=== PATIENT | female | born 1985 | race African-American/Black ===

== ENCOUNTER 2017-06-11 15:23 | Emergency (ER) | payer OTHER ==
[2017-06-11 15:34] VITALS: BP 117/67; PULSE 104; TEMP 98.1; BMI 32.4
--- NOTE | 2017-06-11 16:23 | PDOC ---
History of Present Illness - General Chief Complaint: Blood Sugar Problem Stated Complaint: PCP SENT ADMIN Time Seen by Provider: 06/11/17 16:07 History Source: Patient - History of Present Illness Initial Comments: 06/11/17 16:22 Patient is 31 y.o. @ 10 weeks female with a PMH of IDDM who presents to our ED this afternoon at the behest of her PCP, Dr. Fernando Estevez, following a BS of 400 as well as a positive VRDL last week. Patient has no active medical complaints and expresses disbelief at her Syphilis serology as she notes she is monagamous with one partner for two years. Patient denies any abdominal pain, fevers, chills, shortness of breath or chest pain. Past History - Past Medical History Allergies/Adverse Reactions: Allergies Allergy/AdvReac Type Severity Reaction Status Date / Time No Known Allergies Allergy Verified 06/11/17 15:31 Home Medications: Ambulatory Orders Gabapentin 300 mg PO TID 08/08/16 Hydroxyzine HCl 50 mg PO DAILY PRN 08/08/16 Quetiapine Fumarate [Seroquel] 100 tab PO BID 08/08/16 Sertraline HCl [Zoloft] 100 mg PO DAILY 08/08/16 Trazodone HCl 200 mg PO HS 08/08/16 Insulin (Levemir) [Levemir Vial] 10 units SQ BID@0700,2200 #4 ml 08/10/16 Insulin Glargine,Hum.rec.anlog [Lantus Solostar PEN (NF)] 10 units SQ BID #60 pen 08/10/16 Miscellaneous Medical Supply [Glucometer Device] 1 each TD ASDIR #1 kit Miscellaneous Medical Supply [Glucometer Test Strips #100] 1 each TD ASDIR #1 box 08/10/16 Anemia: Yes Asthma: No Cancer: No Cardiac Disorders: No Diabetes: Yes HTN: No Seizures: No Thyroid Disease: No - Immunization History Immunization Up to Date: Yes - Suicide/Smoking/Psychosocial Hx Smoking History: Current every day smoker Have you smoked in the past 12 months: Yes Number of Cigarettes Smoked Daily: 15 Cigars Per Day: 3 Information on smoking cessation initiated: No 'Breaking Loose' booklet given: 08/08/16 Hx Alcohol Use: No Drug/Substance Use Hx: No Substance Use Type: None Hx Substance Use Treatment: No Review of Systems - Review of Systems Constitutional: No: Chills, Fever HEENTM: No: Recent change in vision, Throat Pain Respiratory: No: Cough, Shortness of Breath Cardiac (ROS): No: Chest Pain, Irregular Heart Rate, Chest Tightness ABD/GI: No: Constipated, Diarrhea, Nausea, Vomiting All Other Systems: Reviewed and Negative *Physical Exam - Vital Signs Last Vital Signs Temp Pulse Resp BP Pulse Ox 98.1 F 104 H 20 117/67 99 06/11/17 15:32 06/11/17 15:32 06/11/17 15:32 06/11/17 15:32 06/11/17 15:32 - Physical Exam General Appearance: Yes: Nourished, Appropriately Dressed HEENT: positive: EOMI, Other (Delayed or no Reactivity in L pupil possibly Argyll Rubalcava pupil; Reactive R pupil) Neck: positive: Trachea midline, Supple Respiratory/Chest: positive: Lungs Clear, Normal Breath Sounds Cardiovascular: positive: Regular Rhythm, Regular Rate, S1, S2 Integumentary: positive: Rash (Macular rash in abdomen, flank and buttocks) Neurologic: positive: medical assistant dermatology II-XII NML intact, Fully Oriented, Alert ED Treatment Course - LABORATORY CBC & Chemistry Diagram: 06/11/17 17:00 06/11/17 17:00 Medical Decision Making - Medical Decision Making 06/11/17 16:58 Patient is a 31 y.o. female who presents at the behest of her PCP Dr. Fernando Estevez following a positive VRDL as well as elevated BS (400's) today. PLAN: 1. CBC, CMP 2. VRDL 3. UA 4. 2.4 units IM penicillin - as syphilis is TORCH infection, clinical decision to treat without FTA ABS confirmatory testing; patient to receive confirmatory testing from PCP 06/11/17 17:22 stenographer secretary cathodic protection technician, Dr. Metcalf, agreed with POC; patient to f/u with ID as well as stenographer secretary referral. 06/11/17 19:13 Patient signed out to Dr. Alan De La Fuente (Resident) and Dr. Patience Jenkins ( Attending) - will plan to recheck BS and discharge home with strong counseling on follow-up instructions. *DC/Admit/Observation/Transfer Diagnosis at time of Disposition: Hyperglycemia - Discharge Dispostion Disposition: HOME Condition at time of disposition: Good - Referrals Referrals: Fernando Estevez MD [Primary Care Provider] - Nidhi Deleon MD [Staff Physician] - Shaheen Metcalf MD [Staff Physician] - - Patient Instructions Printed Discharge Instructions: DI for Hyperglycemia -- Adult, Syphilis Additional Instructions: Please make an appointment next week for follow-up with Infectious Disease for treatment of possible syphilis. Also, please call stenographer secretary to establish care. Please return to the Emergency Department for any worsening or concerning symptoms.
[2017-06-11] MEDS ORDERED: PENICILLIN G BENZATHINE 2,400,000 UNIT/4 ML PFS IM ONE (17:25)
[2017-06-11] MEDS ORDERED: SODIUM CHLORIDE 0.9% 1000 ML INFUS.BAG IV ONE (17:36)
[2017-06-11 17:56] LABS: ALBUMIN 2.9 g/dl (3.4-5.0); ALK PHOS 106 U/L (45-117); ANION GAP 10 (8-16); BILIRUBIN,TOTAL 0.3 mg/dL (0.2-1.0); CALCIUM 8.8 mg/dL (8.5-10.1); CO2 22 mmol/L (21-32); CREATININE 0.5 mg/dL (0.55-1.02); GLUCOSE,RANDOM 268 mg/dL (74-106); SGOT/AST 20 U/L (15-37); SGPT/ALT 32 U/L (12-78); TOT PROT 7.1 g/dl (6.4-8.2)
[2017-06-11] MEDS ORDERED: PENICILLIN G BENZATHINE 2,400,000 UNIT/4 ML PFS ONE (18:02)
[2017-06-11 18:32] LABS: URINE APPEARANCE SLCLOUDY; URINE BILIRUBIN NEGATIVE (NEGATIVE); URINE BLOOD NEGATIVE (NEGATIVE); URINE COLOR COLORLESS; URINE GLUCOSE (UA) 3+ (NEGATIVE); URINE KETONE TRACE (NEGATIVE); URINE NITRITE NEGATIVE (NEGATIVE); URINE PROTEIN NEGATIVE (NEGATIVE); URINE UROBILINOGEN NEGATIVE mg/dL (0.2-1.0)
--- NOTE | 2017-06-11 19:17 | PDOC ---
*Physical Exam - Vital Signs Last Vital Signs Temp Pulse Resp BP Pulse Ox 98.1 F 104 H 20 117/67 99 06/11/17 15:32 06/11/17 15:32 06/11/17 15:32 06/11/17 15:32 06/11/17 15:32 - Physical Exam Comments: 06/11/17 19:55 General Appearance: Nourished. No Apparent Distress HEENT: EOMI, Left argyll diaz pupil noted on exam. Reactive right pupil. Respiratory/Chest: Lungs Clear, Normal Breath Sounds. No Crackles, Rales, Rhonchi, Wheezing Cardiovascular: Regular Rhythm, Regular Rate. No Murmur, Gallops, Rubs Gastrointestinal/Abdominal: Normal Bowel Sounds, Soft. No Guarding, Rebound, Tenderness Musculoskeletal: No CVA Tenderness Extremity: Normal Capillary Refill Integumentary: Normal Color, Dry, Warm Neurologic: Fully Oriented, Alert, Normal Mood/Affect, Normal Response, <Frantz De La Fuente - Last Filed: 06/11/17 20:22> - Vital Signs Last Vital Signs Temp Pulse Resp BP Pulse Ox 98.1 F 104 H 20 117/67 99 06/11/17 15:32 06/11/17 15:32 06/11/17 15:32 06/11/17 15:32 06/11/17 15:32 <Patience Jenkins - Last Filed: 06/11/17 20:28> ED Treatment Course - LABORATORY CBC & Chemistry Diagram: 06/11/17 17:00 06/11/17 17:00 - ADDITIONAL ORDERS Additional order review: Laboratory Results 06/11/17 06/11/17 17:00 16:34 Sodium 131 L Potassium 3.9 Chloride 99 Carbon Dioxide 22 Anion Gap 10 BUN 7 D Creatinine 0.5 L D Creat Clearance w eGFR > 60 Random Glucose 268 H D Calcium 8.8 Total Bilirubin 0.3 D AST 20 ALT 32 D Alkaline Phosphatase 106 D Total Protein 7.1 D Albumin 2.9 L Urine Color Colorless Urine Appearance Slcloudy Urine pH 6.0 Urine Protein Negative Urine Glucose (UA) 3+ H Urine Ketones Trace H Urine Blood Negative Urine Nitrite Negative Urine Bilirubin Negative Urine Urobilinogen Negative - Medications Given in the ED: ED Medications Discontinued Medications Generic Name Dose Route Start Last Admin Trade Name Freq PRN Reason Stop Dose Admin Penicillin G Benzathine 2,400,000 unit 06/11/17 17:25 06/11/17 18:09 Bicillin L-A - IM 06/11/17 17:26 2,400,000 unit ONCE ONE Administration Sodium Chloride 1,000 ml 06/11/17 17:36 06/11/17 17:59 Normal Saline - IV 06/11/17 17:37 1,000 ml ONCE ONE Administration <Frantz De La Fuente - Last Filed: 06/11/17 20:22> - LABORATORY CBC & Chemistry Diagram: 06/11/17 17:00 06/11/17 17:00 - ADDITIONAL ORDERS Additional order review: Laboratory Results 06/11/17 06/11/17 06/11/17 17:00 17:00 16:34 Sodium 131 L Potassium 3.9 Chloride 99 Carbon Dioxide 22 Anion Gap 10 BUN 7 D Creatinine 0.5 L D Creat Clearance w eGFR > 60 Random Glucose 268 H D Calcium 8.8 Total Bilirubin 0.3 D AST 20 ALT 32 D Alkaline Phosphatase 106 D Total Protein 7.1 D Albumin 2.9 L Urine Color Colorless Urine Appearance Slcloudy Urine pH 6.0 Urine Protein Negative Urine Glucose (UA) 3+ H Urine Ketones Trace H Urine Blood Negative Urine Nitrite Negative Urine Bilirubin Negative Urine Urobilinogen Negative Blood Type O POSITIVE Antibody Screen Negative 06/11/17 17:00 RBC 3.89 MCV 84.5 MCHC 32.6 RDW 13.5 MPV 8.7 Neutrophils % 60.4 Lymphocytes % 26.4 D Monocytes % 10.6 H Eosinophils % 2.1 D Basophils % 0.5 - Medications Given in the ED: ED Medications Discontinued Medications Generic Name Dose Route Start Last Admin Trade Name Freq PRN Reason Stop Dose Admin Penicillin G Benzathine 2,400,000 unit 06/11/17 17:25 06/11/17 18:09 Bicillin L-A - IM 06/11/17 17:26 2,400,000 unit ONCE ONE Administration Sodium Chloride 1,000 ml 06/11/17 17:36 06/11/17 17:59 Normal Saline - IV 06/11/17 17:37 1,000 ml ONCE ONE Administration <Patience Jenkins - Last Filed: 06/11/17 20:28> Progress Note - Progress Note Progress Note: Received sign out from Dr. Trevino. The claire is a 31 year old female with a history of IDDM who presents to our ED this afternoon from her PCP following a BS of 400 as well as a positive VRDL last week. She is currently receiving fluids and will d/c after a BS recheck. She is to follow up with ID and PCP for syphilis. <Frantz De La Fuente - Last Filed: 06/11/17 20:22> Medical Decision Making - Medical Decision Making 06/11/17 20:15 Patient's BS is less then 300 at this time. We are comfortable discharging the patient with follow up with her primary care provider and ID. We discussed the plan with the patient who voiced understanding and is agreeable with the plan. <Frantz De La Fuente - Last Filed: 06/11/17 20:22> *DC/Admit/Observation/Transfer <Frantz De La Fuente - Last Filed: 06/11/17 20:22> <GregoryPatience Anand - Last Filed: 06/11/17 20:28> Diagnosis at time of Disposition: Hyperglycemia - Discharge Dispostion Disposition: HOME Condition at time of disposition: Good - Referrals Referrals: Nidhi Deleon MD [Staff Physician] - Shaheen Metcalf MD [Staff Physician] - Fernando Estevez MD [Primary Care Provider] - - Patient Instructions Printed Discharge Instructions: DI for Hyperglycemia -- Adult, Syphilis Additional Instructions: Please make an appointment next week for follow-up with Infectious Disease for treatment of possible syphilis. Also, please call counter attendant to establish care. Please return to the Emergency Department for any worsening or concerning symptoms. - Post Discharge Activity
[2017-06-11 19:31] LABS: BASOPHIL 0.5 % (0-2.0); EOSINOPHIL 2.1 % (0-4.5); MCH 27.5 pg (25.7-33.7); MCHC 32.6 g/dl (32.0-36.0); MEAN CELL VOLUME 84.5 fl (80-96); MEAN PLT VOLUME 8.7 fl (7.5-11.1); NEUTROPHILS 60.4 % (42.8-82.8); PLATELET COUNT 352 K/MM3 (134-434); RDW 13.5 % (11.6-15.6); WHITE BLOOD COUNT 6.9 K/mm3 (4.0-10.0)
--- NOTE | 2017-06-11 20:28 | PDOC ---
Attending Attestation - Resident Resident Name: Eden Trevino - ED Attending Attestation I have performed the following: I have examined & evaluated the patient, The case was reviewed & discussed with the resident, I agree w/resident's findings & plan, Exceptions are as noted - HPI HPI: 06/11/17 20:28 31 yo female who is and hyperglycemia - Physicial Exam PE: 06/12/17 02:49 wnwd 31 yo female in no acute distress had positive RPR and sent for antibiotics lungs cta b/l cvr [id number] and no reboung ,no guarding neuro [id number],ambulatory 06/12/17 02:50 - Medical Decision Making 06/12/17 02:50 discharge home after antibiotics/folllowup with final assembler
[2017-06-11 22:07] LABS: URINE LEUK ESTERASE Negative (NEGATIVE)
--- NOTE | 2017-06-12 14:50 | PDOC ---
Patient Follow-up (Call Back) - Post ED Follow - Up Condition at time of discharge: Good Disposition at time of original discharge: HOME Reason for Call Back: Abnwl. Microbiology (Patient with reactive RPR, Is kown to be positive, was sent for IV antibiotics.)
== END 2017-06-11 20:41 | disposition home or self-care (01) ==
LOC: JER 15:23
PROC: 3E01329 Introduction of Other Anti-infective into Subcutaneous Tissue, Percutaneous Approach (ICD-10-PCS; principal; 2017-06-11)
PROC: 3E0337Z Introduction of Electrolytic and Water Balance Substance into Peripheral Vein, Percutaneous Approach (ICD-10-PCS; 2017-06-11)
DX: O24.011 Pre-existing type 1 diabetes mellitus, in pregnancy, first trimester (principal); O98.111 Syphilis complicating pregnancy, first trimester; E11.65 Type 2 diabetes mellitus with hyperglycemia; A53.9 Syphilis, unspecified; Z3A.10 10 weeks gestation of pregnancy; Z79.84 Long term (current) use of oral hypoglycemic drugs; Z79.4 Long term (current) use of insulin; F17.210 Nicotine dependence, cigarettes, uncomplicated
CPT/HCPCS: 36415; 80053; 81003; 85025; 86593; 86780; 86850; 86900; 86901; 99283-25

== ENCOUNTER 2018-08-18 23:20 | Inpatient (IN) | payer OTHER ==
[2018-08-18] MEDS ORDERED: ONDANSETRON *ODT* 4 MG TABLET SL ONE (23:58)
[2018-08-18] MEDS ORDERED: SODIUM CHLORIDE 1,000 ML IV STA (23:59)
[2018-08-19] MEDS ORDERED: ACETAMINOPHEN 1000 MG/100 ML VIAL (NON FORMULARY) IVPB ONE
[2018-08-19] MEDS ORDERED: ONDANSETRON 8 MG TABLET (FP) PO ONE (00:03)
[2018-08-19] MEDS ORDERED: ACETAMINOPHEN INJECTION 100 ML IVPB ONE (00:03)
[2018-08-19 00:30] LABS: BASO % 0.4 % (0-2.0); EOS % 0.1 % (0-4.5); HEMATOCRIT 45.4 % (32.4-45.2); HEMOGLOBIN 14.5 GM/dL (10.7-15.3); LYMPH % 13.9 % (8-40); MCH 30.4 pg (25.7-33.7); MCHC 31.9 g/dl (32.0-36.0); MEAN CELL VOLUME 95.3 fl (80-96); MEAN PLT VOLUME 8.9 fl (7.5-11.1); NEUT % 79.6 % (42.8-82.8); PLATELET COUNT 368 K/MM3 (134-434); RBC 4.76 M/mm3 (3.60-5.2); RDW 14.6 % (11.6-15.6)
[2018-08-19] MEDS ORDERED: ALPRAZolam 0.25 MG TABLET PO ONE (00:51)
--- NOTE | 2018-08-19 00:51 | PDOC ---
History of Present Illness - General Chief Complaint: Shortness of Breath Stated Complaint: DIABETIC Time Seen by Provider: 08/18/18 23:54 History Source: Patient - History of Present Illness Initial Comments: 08/19/18 00:24 32f with pmh of diabetes, depression and anxiety present to the ED hyperventilating with chest pain, sob and dizziness, nausea. She states that she checked her blood sugar before coming her and it was 347. Not compliant with her insulin medication. States that she recently was admitted to [facility] for Panic attack and hyperglycemia. Feels like her symptoms are the same as they were then. Says that she hasn't taken her psych medication in a while. Says that she has a lot of personal problems going on in her life. Denies suicidal/homicidal ideation. Past History - Past Medical History Allergies/Adverse Reactions: Allergies Allergy/AdvReac Type Severity Reaction Status Date / Time No Known Allergies Allergy Verified 08/18/18 23:31 Home Medications: Ambulatory Orders Gabapentin 300 mg PO TID 08/08/16 Hydroxyzine HCl 50 mg PO DAILY PRN 08/08/16 Quetiapine Fumarate [Seroquel] 100 tab PO BID 08/08/16 Sertraline HCl [Zoloft] 100 mg PO DAILY 08/08/16 traZODone HCL [Trazodone HCl] 200 mg PO HS 08/08/16 Insulin (Levemir) [Levemir Vial] 10 units SQ BID@0700,2200 #4 ml 08/10/16 Insulin Glargine,Hum.rec.anlog [Lantus Solostar PEN (NF)] 10 units SQ BID #60 pen 08/10/16 Miscellaneous Medical Supply [Glucometer Device] 1 each TD ASDIR #1 kit Miscellaneous Medical Supply [Glucometer Test Strips #100] 1 each TD ASDIR #1 box 08/10/16 Anemia: Yes Asthma: No Cancer: No Cardiac Disorders: No COPD: No Diabetes: Yes HTN: No Seizures: No Thyroid Disease: No - Immunization History Immunization Up to Date: Yes - Suicide/Smoking/Psychosocial Hx Smoking History: Never smoked Have you smoked in the past 12 months: Yes Number of Cigarettes Smoked Daily: 15 Cigars Per Day: 3 'Breaking Loose' booklet given: 08/08/16 Hx Alcohol Use: No Drug/Substance Use Hx: No Substance Use Type: None Hx Substance Use Treatment: No Review of Systems - Review of Systems Able to Perform ROS?: Yes Is the patient limited Kiswahili proficient: No Constitutional: No: Symptoms Reported HEENTM: No: Symptoms Reported Respiratory: Yes: See HPI Cardiac (ROS): Yes: See HPI ABD/GI: No: Symptoms Reported : No: Symptoms Reported Musculoskeletal: No: Symptoms Reported Integumentary: No: Symptoms Reported Neurological: No: Symptoms reported Psychiatric: Yes: Anxiety, Depression, Stressors, Emotional Problems All Other Systems: Reviewed and Negative *Physical Exam - Vital Signs Last Vital Signs Temp Pulse Resp BP Pulse Ox 98.1 F 115 H 24 H 147/91 100 08/18/18 23:29 08/18/18 23:29 08/18/18 23:29 08/18/18 23:29 08/18/18 23:29 - Physical Exam General Appearance: Yes: Disheveled, Thin HEENT: positive: EOMI, LUKAS, Normal ENT Inspection Respiratory/Chest: positive: Lungs Clear, Normal Breath Sounds, Respiratory Distress, Rapid RR, Other (hyperventilating). negative: Chest Tender Gastrointestinal/Abdominal: positive: Normal Bowel Sounds, Flat, Soft. negative : Tender Musculoskeletal: positive: Normal Inspection. negative: CVA Tenderness Extremity: positive: Normal Capillary Refill, Normal Inspection, Normal Range of Motion Integumentary: positive: Normal Color, Dry, Warm Neurologic: positive: Depressed Affect Moderate Sedation - Procedure Monitoring Vital Signs: Procedure Monitoring Vital Signs Temperature 98.1 F 08/18/18 23:29 Pulse Rate 115 H 08/18/18 23:29 Respiratory Rate 24 H 08/18/18 23:29 Blood Pressure 147/91 08/18/18 23:29 O2 Sat by Pulse Oximetry (%) 100 08/18/18 23:29 ED Treatment Course - LABORATORY CBC & Chemistry Diagram: 08/19/18 00:19 08/19/18 00:19 - RADIOLOGY Radiology Studies Ordered: Category Date Time Status CHEST PA & LAT [RAD] Stat Radiology 08/19/18 00:00 Ordered Medical Decision Making - Medical Decision Making 08/19/18 01:19 DKA vs PE vs Panic attack. While there is certainly an element of psychiatric etiology in the patient's behavior and clinical presentation the patient need to be ruled out for DKA as she is diabetic, was recently hospitalized for dka at [facility] and is presenting hyperglycemia, non-compliant with her medication. When asked why she didn't take her diabetic medication she stated that her doctor instructed her to not do so and to go straight to the ER. The patient's elevated blood sugar is concerning and we will treat with iv fluids immediately. In addition we will check for her acetone level, basic labs and urine. 0.25 xanax PO for anxiety. No suicidal/homicidal ideation. PAtient's sugar is in the 380's, with positive acetone 2+. Patient is received a total of 2L of NS and 1L of LR as well as 6U of Insulin. Will recheck sugar and start insulin drip. Will admit to ICU. 08/19/18 03:01 Patient signed out to Dr. Gusman *DC/Admit/Observation/Transfer Diagnosis at time of Disposition: Diabetic keto-acidosis - Discharge Dispostion Disposition: HOME Decision to Admit order: Yes - Referrals Referrals: Fernando Estevez MD [Primary Care Provider] - - Patient Instructions - Post Discharge Activity
[2018-08-19 00:56] LABS: ALBUMIN 4.4 g/dl (3.4-5.0); ALK PHOS 107 U/L (45-117); ANION GAP 27 MMOL/L (8-16); BILIRUBIN,TOTAL 0.4 mg/dL (0.2-1); BLOOD UREA NITROGEN 14 mg/dL (7-18); CALCIUM 8.2 mg/dL (8.5-10.1); CHLORIDE 96 mmol/L (98-107); CO2 7 mmol/L (21-32); CREATININE 1.3 mg/dL (0.55-1.3); POTASSIUM 4.8 mmol/L (3.5-5.1); SGOT/AST 19 U/L (15-37); SGPT/ALT 26 U/L (13-61); SODIUM 129 mmol/L (136-145); TOT PROT 8.7 g/dl (6.4-8.2)
[2018-08-19 00:57] LABS: GLUCOSE,RANDOM 385 mg/dL (74-106)
[2018-08-19] MEDS ORDERED: ALPRAZolam 0.25 MG TABLET ONE (01:10)
[2018-08-19] MEDS ORDERED: SODIUM CHLORIDE 1,000 ML IV STA (01:27)
[2018-08-19 01:30] LABS: ACETONE SERUM POSITIVE MODERATE 2+ (NEGATIVE)
[2018-08-19] MEDS ORDERED: INSULIN REGULAR HUMAN 100 UNITS/ML *VIAL IVPUSH ONE (01:31)
--- NOTE | 2018-08-19 01:34 | PDOC ---
Attending Attestation - [facility] HPI: 08/19/18 01:44 The patient is a 32 year old female, with a significant past medical history of diabetes, anxiety and depression, who presents to the emergency department with weakness, dizziness, nausea and shortness of breath for the past couple of days but worsening today, prompting her to come to the emergency department. She has also been experiencing polydipsia and polyuria. The patient reports that her she took her blood sugar earlier today which was 347. She states that she does not regularly take her medication and reports that she was recently admitted to [facility] after she had been experiencing similar symptoms. She denies any fever, chills, vomiting, diarrhea or abdominal pain. Currently in the emergency department she is tachypneic, exhibiting Kussmaul's breathing. Allergies: None reported. Past Surgical History: None reported. Social History: Non-smoker. Denies alcohol or drug use. PCP: Dr. Fernando Estevez Documentation prepared by Daisha Oconnell, acting as medical office assistant for Patience Jenkins MD. - Physicial Exam PE: 08/19/18 01:41 GENERAL: Awake, alert, and fully oriented, in no acute distress. HEAD: No signs of trauma. EYES: PERRLA, EOMI, sclera anicteric, conjunctiva clear. ENT: Auricles normal inspection, hearing grossly normal, nares patent, oropharynx clear without exudates. Moist mucosa. NECK: Normal ROM, supple, no lymphadenopathy, JVD, or masses. LUNGS: Tachypneic. Breath sounds equal, clear to auscultation bilaterally. No wheezes, and no crackles. HEART: Tachycardic. Regular rhythm. Normal S1 and S2. No murmurs, rubs or gallops. ABDOMEN: Soft, nontender, normoactive bowel sounds. No guarding, no rebound. No masses. EXTREMITIES: Normal range of motion, no edema. No clubbing or cyanosis. No cords , erythema, or tenderness. NEUROLOGICAL: Cranial nerves II through XII intact. Normal speech, normal gait. SKIN: Warm, dry, normal turgor, no rashes or lesions noted. Documentation prepared by Daisha Oconnell, acting as medical office assistant for Patience Jenkins MD. <Daisha Griggs - Last Filed: 08/19/18 01:45> - Resident Resident Name: Yifan White - ED Attending Attestation I have performed the following: I have examined & evaluated the patient, The case was reviewed & discussed with the resident, I agree w/resident's findings & plan, Exceptions are as noted - Medical Decision Making 08/19/18 20:13 32 yo female presenting with rapid resp rate,hyperglycemia and found to have DKA pt started with IVF,insulin drip and admitted <Patience Jenkins - Last Filed: 08/19/18 20:15>
[2018-08-19] MEDS ORDERED: LACTATED RINGERS SOLUTION 1,000 ML/1,000 ML INFUS.BAG IV ONE (01:43)
[2018-08-19] MEDS ORDERED: INSULIN REGULAR 100 UNITS in SODIUM CHLORIDE 99 ML IVPB SCH ×2 (01:45→09:33)
[2018-08-19] MEDS ORDERED: INSULIN REGULAR HUMAN 100 UNITS/ML *VIAL ONE (01:48)
--- NOTE | 2018-08-19 02:54 | PN ---
Teaching Attending Note Name of Resident: Tari Villatoro ATTENDING PHYSICIAN STATEMENT I saw and evaluated the patient. I reviewed the resident's note and discussed the case with the resident. I agree with the resident's findings and plan as documented. SUBJECTIVE: Patient is a 32 year old woman with a PMH of Insulin-treated DM (diagnosed in ), PTSD, thyroid disease (unspecified), tobacco use, anxiety and depression , who presents to the ER with weakness, dizziness, nausea and shortness of breath for the past couple of days but worsening today. She has also been experiencing polydipsia and polyuria. She has had lower abdominal pain that radiates upwards as well as vomiting and urinary frequency. She had DKA? about 7 months ago without accompanying abdominal pain and vomiting. The patient reports that her she took her blood sugar earlier today which was 347. She states that she does not regularly take her medication and reports that she was recently admitted to [facility] after she had been experiencing similar symptoms. She denies any fever, chills, vomiting, diarrhea or abdominal pain. Currently in the emergency department she is tachypneic, exhibiting Kussmaul breathing. OBJECTIVE: Alert Vital Signs Period Temp Pulse Resp BP Sys/Irwin Pulse Ox Last 24 Hr 98.1 F 115 24 147/91 100 HEENT: No Jaundice, eye redness or discharge, PERRLA, EOMI. Normocephalic, atraumatic. External ears are normal and hearing is grossly intact. No nasal discharge. Neck: Supple, nontender. No palpable adenopathy or thyromegaly. No JVD Chest: Good effort. Clear to auscultation and percussion. Heart: Regular. No S3, rub or murmur Abdomen: Not distended, soft, tender lower abdomen and no HSM. No rebound or guarding. Normoactive bowel sounds. Ext: Peripheral pulses intact. No leg edema. Skin: Warm and dry. No petechiae, rash or ecchymosis. Neuro: Alert. Oriented x3. CN 2-12 grossly intact. Sensation grossly intact in all four extremities and DTR are symmetric. Current Medications Generic Name Dose Route Start Last Admin Trade Name Freq PRN Reason Stop Dose Admin Insulin Human Regular 100 100 mls @ 6.35 mls/hr 08/19/18 01:45 units/ Sodium Chloride IVPB TITR ISI Protocol 0.1 UNITS/KG/HR Home Medications Medication Instructions Recorded Gabapentin 300 mg PO TID 08/08/16 Hydroxyzine HCl 50 mg PO DAILY PRN 08/08/16 Quetiapine Fumarate [Seroquel] 100 tab PO BID 08/08/16 Sertraline HCl [Zoloft] 100 mg PO DAILY 08/08/16 traZODone HCL [Trazodone HCl] 200 mg PO HS 08/08/16 Insulin (Levemir) [Levemir Vial] 10 units SQ BID@0700,2200 #4 ml 08/10/16 Insulin Glargine,Hum.rec.anlog 10 units SQ BID #60 pen 08/10/16 [Lantus Solostar PEN (NF)] Miscellaneous Medical Supply 1 each TD ASDIR #1 kit 08/10/16 [Glucometer Device] Miscellaneous Medical Supply 1 each TD ASDIR #1 box 08/10/16 [Glucometer Test Strips #100] Abnormal Lab Results 08/19/18 08/19/18 00:19 00:19 WBC 15.0 H Hct 45.4 H D MCHC 31.9 L Absolute Neuts (auto) 12.0 H Sodium 129 L Chloride 96 L Carbon Dioxide 7 L Anion Gap 27 H Random Glucose 385 H* Calcium 8.2 L Total Protein 8.7 H Acetone, Qual Positive moderate 2+ H ASSESSMENT AND PLAN: 1. DKA - No obvious precipitating factor. UA is pending and leukocytosis may be due to stress. Will get CT of the abdomen. Chest pain is atypical - EKG shows sinus tachycardia and no significant ST-T wave changes. Will check troponin and repeat EKG. Started on IV insulin drip, IV NS and will add IV KCL and abide by the DKA protocol. Will provide comprehensive diabetes care with patient teaching and counseling about the importance of euglycemia, eye care and foot care. In view of history of unspecified thyroid disorder and ?IDDM, need to evaluate for MEN syndrome - refer to Endocrinology. Monitor BP closely - may need to treat with ACEI or ARB upon discharge. Nonpharmacologic measures to control hypertension like weight loss, smoking cessation, salt restriction and exercise discussed. 2. Tobacco Use We will provide patient all the necessary assistance to facilitate smoking cessation and prescribe Nicotine patch. 3. DVT prophylaxis - Lovenox 40 mg SQ q 24 hours. 4. Advance directives - Full code
--- NOTE | 2018-08-19 02:55 | CONSULT ---
Consult Consult Specialty:: Pulm/CCM Referred by:: Dr. White Reason for Consultation:: DKA - History of Present Illness Chief Complaint: difficulty breathing History of Present Illness: 32 yo AA F h/o non-compliant IDDM Type I, depression and anxiety disorder c/o shortness of breath, chest pain, generalized weakness, dizziness, nausea and vomiting for the past few days. She also reported polydipsia and polyuria and fs of 347. She missed her insulin dose due to personal stress. Otherwise, no fever, chills, bowel sx, abd pain, focal weakness. - Past Medical History ...LMP: 07/08/16 - Past Surgical History Past Surgical History: Yes: - Alcohol/Substance Use Hx Alcohol Use: No - Smoking History Smoking history: Never smoked Have you smoked in the past 12 months: Yes Aproximately how many cigarettes per day: 15 - Social History ADL: Independent Home Medications - Allergies Allergies/Adverse Reactions: Allergies Allergy/AdvReac Type Severity Reaction Status Date / Time No Known Allergies Allergy Verified 08/18/18 23:31 - Home Medications Home Medications: Ambulatory Orders Gabapentin 300 mg PO TID 08/08/16 Hydroxyzine HCl 50 mg PO DAILY PRN 08/08/16 Quetiapine Fumarate [Seroquel] 100 tab PO BID 08/08/16 Sertraline HCl [Zoloft] 100 mg PO DAILY 08/08/16 traZODone HCL [Trazodone HCl] 200 mg PO HS 08/08/16 Insulin (Levemir) [Levemir Vial] 10 units SQ BID@0700,2200 #4 ml 08/10/16 Insulin Glargine,Hum.rec.anlog [Lantus Solostar PEN (NF)] 10 units SQ BID #60 pen 08/10/16 Miscellaneous Medical Supply [Glucometer Device] 1 each TD ASDIR #1 kit Miscellaneous Medical Supply [Glucometer Test Strips #100] 1 each TD ASDIR #1 box 08/10/16 Review of Systems - Review of Systems Constitutional: reports: Loss of Appetite, Weakness Cardiovascular: reports: Chest Pain, Shortness of Breath Respiratory: reports: SOB Gastrointestinal: reports: Nausea, Vomiting Genitourinary: reports: Frequency Endocrine: reports: Increased Thirst Physical Exam Vital Signs: Vital Signs Temperature 98.1 F 08/18/18 23:29 Pulse Rate 115 H 08/18/18 23:29 Respiratory Rate 24 H 08/18/18 23:29 Blood Pressure 147/91 08/18/18 23:29 O2 Sat by Pulse Oximetry (%) 100 08/18/18 23:29 Constitutional: Yes: Anxious, Mild Distress Cardiovascular: Yes: Tachycardia, S1, S2. No: Murmur Respiratory: Yes: Tachypnea Gastrointestinal: Yes: Normal Bowel Sounds, Soft, Tenderness Edema: No Neurological: Yes: Alert, Oriented Labs: CBC, BMP 08/19/18 00:19 08/19/18 00:19 Assessment/Plan 32 yo F noncompliant IDDM type I evaluated for DKA. DKA 1. Fluid resus; received 2L LR and 1L of NS, cont. NS 250cc/hr 2. Insulin therapy; received 10 units of insulin boluses, cont. insulin gtt with decrease of 75/hr, bridge with long-acting insulin once gap closes 3. Track anion gap with BMP q4h; 4. Track electrolytes: trend K+ and Mg2+, keep k+ > 5 5. Advance diet once DKA resolves Mark Ayon MD PGY3 Visit type - Emergency Visit Emergency Visit: Yes ED Registration Date: 08/19/18 Care time: The patient presented to the Emergency Department on the above date and was hospitalized for further evaluation of their emergent condition. - New Patient This patient is new to me today: Yes Date on this admission: 08/19/18 - Critical Care Critical Care patient: Yes Total Critical Care Time (in minutes): 35 Critical Care Statement: The care of this patient involved high complexity decision making to prevent further life threatening deterioration of the patient 's condition and/or to evaluate & treat vital organ system(s) failure or risk of failure.
[2018-08-19] MEDS ORDERED: SODIUM CHLORIDE FOR INHALATION 3 ML VIAL.NEB IH PRN (04:22)
[2018-08-19] MEDS ORDERED: SODIUM CHLORIDE 0.9%/KCL 20 MEQ/1,000 ML INFUS.BAG IV SCH (04:30)
[2018-08-19] MEDS ORDERED: SODIUM CHLORIDE NASAL SPRAY 44 ML BOTTLE NS PRN ×2 (04:30→13:40)
--- NOTE | 2018-08-19 04:56 | HP ---
CHIEF COMPLAINT: Chest pain, Dizziness, Difficulty breathing PCP: Fernando Estevez [employer] Worker: Cristiane Matamoros HISTORY OF PRESENT ILLNESS: 32 y/o F With PMHx of DM, Depression, Anxiety, Thyroid disorder (?Hyper) presents with Chest pain, Dizziness and difficulty breathing x 2 days. Patient felt a similar compilation of symptoms approx 8 weeks ago at which time she was brought to [facility] and worked up for ?Sepsis. Additionally patient experienced some diffuse abdominal pain that radiates upward accompanied by nausea and NBNB vomiting. Patient endorses hyperventilating at home, Polyuria, Polydipsia and Urinary Frequency. She tried to visit her PCP however was unable to and visited the ED. During my interview, patient was very tired, complained of burning nose pain, and continued to feel dizziness. She mentions she has lost ~40lbs since her visit to [facility]. There is questionable compliance with her medications without any specific reasoning given. Denies any accompanying fevers, diarrhea, constipation. No Recent medication changes, recent infections or dietary changes. 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 Recent Travel: Denies PAST MEDICAL HISTORY: DM, Depression, Anxiety, Thyroid disorder (?Hyper) PAST SURGICAL HISTORY: C-Sections x2 Social History: Smokinppd x 10 years Alcohol: Denies Drugs: Denies Occupation: Unemployed Ambulation: Without assistance Residence: With Mother At home Family History: DM on Both sides Allergies No Known Allergies Allergy (Verified 08/18/18 23:31) HOME MEDICATIONS: Home Medications Medication Instructions Recorded Gabapentin 300 mg PO TID 08/08/16 Hydroxyzine HCl 50 mg PO DAILY PRN 08/08/16 Quetiapine Fumarate [Seroquel] 100 tab PO BID 08/08/16 Sertraline HCl [Zoloft] 100 mg PO DAILY 08/08/16 traZODone HCL [Trazodone HCl] 200 mg PO HS 08/08/16 Insulin (Levemir) [Levemir Vial] 10 units SQ BID@0700,2200 #4 ml 08/10/16 Insulin Glargine,Hum.rec.anlog 10 units SQ BID #60 pen 08/10/16 [Lantus Solostar PEN (NF)] Miscellaneous Medical Supply 1 each TD ASDIR #1 kit 12/09/16 [Glucometer Device] Miscellaneous Medical Supply 1 each TD ASDIR #1 box 08/10/16 [Glucometer Test Strips #100] REVIEW OF SYSTEMS As per HPI PHYSICAL EXAMINATION Vital Signs - 24 hr 08/18/18 23:29 Temperature 98.1 F Pulse Rate 115 H Respiratory 24 H Rate Blood Pressure 147/91 O2 Sat by Pulse 100 Oximetry (%) GENERAL: Tired but Arousable. A&Ox3, NAD HEAD: NCAT EYES: PERRL EOMI EARS, NOSE, THROAT: Oropharynx clear without exudates. Dry mucous membranes. NECK: No JVD LUNGS: Tachypneic, Breath sounds equal, clear to auscultation bilaterally. No wheezes. HEART: Tachycardia, normal S1 and S2 without murmur ABDOMEN: Soft, Diffuse tenderness to palpation worse in the Lower Quadrants, not distended, + bowel sounds, no guarding EXTREMITIES: 2+ pulses, No calf tenderness. No peripheral edema. NEUROLOGICAL: Cranial nerves II-XII intact. Normal speech. Gross sensation intact globally. 5/5 Muscles strength throughout. PSYCHIATRIC: Anxious SKIN: Warm, dry, no rashes or lesions noted Laboratory Results - last 24 hr 08/19/18 08/19/18 08/19/18 00:19 00:19 00:19 WBC 15.0 H RBC 4.76 Hgb 14.5 Hct 45.4 H D MCV 95.3 MCH 30.4 D MCHC 31.9 L RDW 14.6 Plt Count 368 MPV 8.9 Absolute Neuts (auto) 12.0 H Neutrophils % 79.6 D Lymphocytes % 13.9 D Monocytes % 6.0 Eosinophils % 0.1 D Basophils % 0.4 Nucleated RBC % 0 Sodium 129 L Potassium 4.8 Chloride 96 L Carbon Dioxide 7 L Anion Gap 27 H BUN 14 Creatinine 1.3 Creat Clearance w eGFR 47.78 POC Glucometer Random Glucose 385 H* Calcium 8.2 L Total Bilirubin 0.4 AST 19 ALT 26 Alkaline Phosphatase 107 Total Protein 8.7 H Albumin 4.4 Serum , Qual Negative Acetone, Qual Positive moderate 2+ H 08/19/18 02:51 WBC RBC Hgb Hct MCV MCH MCHC RDW Plt Count MPV Absolute Neuts (auto) Neutrophils % Lymphocytes % Monocytes % Eosinophils % Basophils % Nucleated RBC % Sodium Potassium Chloride Carbon Dioxide Anion Gap BUN Creatinine Creat Clearance w eGFR POC Glucometer [phone] Random Glucose Calcium Total Bilirubin AST ALT Alkaline Phosphatase Total Protein Albumin Serum , Qual Acetone, Qual ASSESSMENT/PLAN: 32 y/o F With PMHx of DM, Depression, Anxiety, Thyroid disorder (?Hyper) presents with Chest pain, Dizziness and difficulty breathing x 2 days was found to be in DKA on arrival and will be admitted to the ICU. #DKA -BG 385, AG 27, Acetone 2+ -BGM, BMP Q4H; Trend K+ and Mg -VBG, UA Pending -Received 2L IVF in ED; Started on IV NS + 20 mEq KCl @ 100 mls/hr -Can Add Dextrose to IVF if BG < 200 with Gap still open -Received Insulin Bolus in ED; Insulin Drip 0.1 Units/Kg/Hr to decrease BG 75 per hr; Can decrease to 0.05 if BG < 200 -Sodium Bicarb if ph < 6.9 -Will need to r/o infection as precipitating factor; UA, CXR Pending -Endocrine (Dr. Matamoros) Consulted -ICU (Dr. Saini) Consulted #Abdominal tenderness + Leukocytosis -WBC Could be Stress rxn, however need to r/o infection -CT A/P without contrast pending #Chest Pain -EKG showed Tachycardia @ 124 with no obvious GEOFFREY/STD, Normal [place] -Cardiac profile pending #Hx of Depression, Anxiety -Will need Med Rec prior to restarting meds #Hx of Thyroid disorder (?Hyper) -TSH Pending -Patient denies taking any medications currently however will need Med Rec -Endocrine (Dr. Matamoros) Consulted #FEN -IV NS @ 100 mls/hr -Continue to monitor Lytes -NPO; Can advance once AG Closes #PPx -DVT: Lovenox Dispo: Admit to ICU; Will Need Med Rec Visit type - Emergency Visit Emergency Visit: Yes ED Registration Date: 08/19/18 Care time: The patient presented to the Emergency Department on the above date and was hospitalized for further evaluation of their emergent condition. - New Patient This patient is new to me today: Yes Date on this admission: 08/19/18 - Critical Care Critical Care patient: Yes Total Critical Care Time (in minutes): 50 Critical Care Statement: The care of this patient involved high complexity decision making to prevent further life threatening deterioration of the patient 's condition and/or to evaluate & treat vital organ system(s) failure or risk of failure.
[2018-08-19 05:17] LABS: BASO % 0.4 % (0-2.0); HEMATOCRIT 39.6 % (32.4-45.2); HEMOGLOBIN 12.2 GM/dL (10.7-15.3); MCH 28.6 pg (25.7-33.7); MCHC 30.7 g/dl (32.0-36.0); MEAN CELL VOLUME 93.3 fl (80-96); MEAN PLT VOLUME 7.6 fl (7.5-11.1); MONO % 9.9 % (3.8-10.2); NEUT % 79.7 % (42.8-82.8); PLATELET COUNT 241 K/MM3 (134-434); RBC 4.25 M/mm3 (3.60-5.2); RDW 13.5 % (11.6-15.6)
[2018-08-19 05:38] LABS: VENOUS PC02 27.1 mmHg (38-52); VENOUS PO2 39.6 mmHg (28-48)
[2018-08-19 05:52] LABS: VENOUS PH 7.13 (7.32-7.42)
[2018-08-19 06:01] LABS: ALBUMIN 3.3 g/dl (3.4-5.0); ALK PHOS 71 U/L (45-117); ANION GAP 18 MMOL/L (8-16); BILIRUBIN,TOTAL 0.4 mg/dL (0.2-1); BLOOD UREA NITROGEN 12 mg/dL (7-18); CHLORIDE 107 mmol/L (98-107); CO2 9 mmol/L (21-32); CREATININE 0.8 mg/dL (0.55-1.3); GLUCOSE,RANDOM 131 mg/dL (74-106); MAGNESIUM 1.6 mg/dL (1.8-2.4); PHOSPHOROUS 1.7 mg/dL (2.5-4.9); POTASSIUM 3.9 mmol/L (3.5-5.1); SGOT/AST 15 U/L (15-37); SGPT/ALT 21 U/L (13-61); SODIUM 134 mmol/L (136-145); TOT PROT 6.3 g/dl (6.4-8.2)
[2018-08-19 06:02] LABS: CALCIUM 6.7 mg/dL (8.5-10.1)
[2018-08-19] MEDS ORDERED: CALCIUM GLUCONATE 10% - 1,000 MG/10 ML VIAL IVPUSH ONE (06:08)
[2018-08-19] MEDS ORDERED: D5-1/2NS+20 MEQ KCL - 20 MEQ/1,000 ML INFUS.BAG IV SCH (06:30)
[2018-08-19] MEDS ORDERED: MAGNESIUM SULF 50% (8.12 MEQ/2 ML-1 GM VIAL) IVPB ONE (09:30)
--- NOTE | 2018-08-19 09:38 | PN ---
Physical Exam: SUBJECTIVE: Patient seen and examined at bed side in ICU this morning. States that she came to the hospital because of shortness of breath. When asked questions, she dozed off, tried to wake her up a couple of times, arousable, however, is not answering questions. Allowed for physical examination. OBJECTIVE: Vital Signs Period Temp Pulse Resp BP Sys/[place] Pulse Ox Last 24 Hr 98.1 F-98.3 F 90-115 18-24 110-147/74-91 100-100 GENERAL: Young female, lying in bed comfortably, patient is sleeping on/off, arousable, in no acute distress. HEAD: Normal with no signs of trauma. EYES: EOM intact, no pallor or icterus. ENT: Ears normal. Dry mucous membranes, ketone breath +. NECK: Trachea midline, full range of motion, supple. LUNGS: Breath sounds equal, clear to auscultation bilaterally, no wheezes, no crackles, no accessory muscle use. HEART: Tachycardic, Regular rate and rhythm, S1, S2 without murmur. ABDOMEN: Soft, nontender, no organomegaly. EXTREMITIES: 2+ pulses, warm, well-perfused, no edema. NEUROLOGICAL: No facial droop. Normal speech, gait not observed. PSYCH: Normal mood, normal affect. SKIN: Warm, dry, normal turgor, no rashes or lesions noted Laboratory Results - last 24 hr 08/19/18 08/19/18 08/19/18 00:19 00:19 00:19 WBC 15.0 H RBC 4.76 Hgb 14.5 Hct 45.4 H D MCV 95.3 MCH 30.4 D MCHC 31.9 L RDW 14.6 Plt Count 368 MPV 8.9 Absolute Neuts (auto) 12.0 H Neutrophils % 79.6 D Lymphocytes % 13.9 D Monocytes % 6.0 Eosinophils % 0.1 D Basophils % 0.4 Nucleated RBC % 0 VBG pH POC VBG pCO2 POC VBG pO2 Mixed VBG HCO3 Sodium 129 L Potassium 4.8 Chloride 96 L Carbon Dioxide 7 L Anion Gap 27 H BUN 14 Creatinine 1.3 Creat Clearance w eGFR 47.78 POC Glucometer Random Glucose 385 H* Calcium 8.2 L Phosphorus Magnesium Total Bilirubin 0.4 AST 19 ALT 26 Alkaline Phosphatase 107 Creatine Kinase Troponin I Total Protein 8.7 H Albumin 4.4 TSH Serum , Qual Negative Acetone, Qual Positive moderate 2+ H 08/19/18 08/19/18 08/19/18 02:51 05:01 05:01 WBC 15.0 H RBC 4.25 Hgb 12.2 Hct 39.6 MCV 93.3 MCH 28.6 MCHC 30.7 L RDW 13.5 Plt Count 241 D MPV 7.6 D Absolute Neuts (auto) 12.0 H Neutrophils % 79.7 Lymphocytes % 10.0 D Monocytes % 9.9 Eosinophils % 0.0 D Basophils % 0.4 Nucleated RBC % 0 VBG pH POC VBG pCO2 POC VBG pO2 Mixed VBG HCO3 Sodium Potassium Chloride Carbon Dioxide Anion Gap BUN Creatinine Creat Clearance w eGFR POC Glucometer [phone] Random Glucose Calcium Phosphorus Magnesium Total Bilirubin AST ALT Alkaline Phosphatase Creatine Kinase Cancelled Troponin I Cancelled Total Protein Albumin TSH Serum , Qual Acetone, Qual 08/19/18 08/19/18 08/19/18 05:01 05:28 06:24 WBC RBC Hgb Hct MCV MCH MCHC RDW Plt Count MPV Absolute Neuts (auto) Neutrophils % Lymphocytes % Monocytes % Eosinophils % Basophils % Nucleated RBC % VBG pH 7.13 L* POC VBG pCO2 27.1 L D POC VBG pO2 39.6 D Mixed VBG HCO3 8.7 L* Sodium 134 L Potassium 3.9 Chloride 107 Carbon Dioxide 9 L Anion Gap 18 H BUN 12 Creatinine 0.8 Creat Clearance w eGFR > 60 POC Glucometer [phone] Random Glucose 131 H Calcium 6.7 L* Phosphorus 1.7 L Magnesium 1.6 L Total Bilirubin 0.4 AST 15 ALT 21 Alkaline Phosphatase 71 Creatine Kinase 86 Troponin I < 0.02 Total Protein 6.3 L Albumin 3.3 L TSH 0.17 L Serum , Qual Acetone, Qual Active Medications Generic Name Dose Route Start Last Admin Trade Name Freq PRN Reason Stop Dose Admin Chlorhexidine Gluconate 1 applic 08/19/18 22:00 Hibiclens For Decolonization - TP HS ISI Enoxaparin Sodium 40 mg 08/19/18 10:00 08/19/18 09:24 Lovenox - SQ 40 mg DAILY ISI Administration Potassium Chloride/Sodium Chloride 20 meq in 1,000 mls @ 100 mls/hr 08/19/18 04:30 08/19/18 05:16 Ns+20 Meq Kcl - IV 100 mls/hr ASDIR ISI Administration Potassium Chloride/Dextrose/Sod Cl 20 meq in 1,000 mls @ 100 mls/hr 08/19/18 06:30 08/19/18 06:45 D5-1/2ns+20 Meq Kcl - IV 100 mls/hr ASDIR ISI Administration Insulin Human Regular 100 100 mls @ 6.35 mls/hr 08/19/18 09:33 08/19/18 09:00 units/ Sodium Chloride IVPB 0.1 units/kg/hr TITR ISI 6.35 mls/hr Administration Protocol 0.1 UNITS/KG/HR Mupirocin 1 applic 08/19/18 10:00 Bactroban Ointment (For Decolonization) - NS 08/24/18 09:59 BID ISI Sodium Chloride 2 spray 08/19/18 04:30 [place] Nasal [place] - NS BID PRN NASAL CONGESTION ASSESSMENT/PLAN: Patient is a 32 year old Female with PMHx of DM, Depression, Anxiety, Thyroid disorder (possibly hyperthyroidism) presents with Chest pain, Dizziness and difficulty breathing x 2 days. # Diabetic Ketoacidosis due to non compliance to medication Could have been aggravated by cystitis Admitted in ICU On arrival, patient presented with BG of 385, AG 27, Acetone 2 +. Receive 2L of NS in ED. Currently, AG is 18, BG 147. Fluids switched to IV D5-1/2 NS +20 Kcl @ 100 mls/hr (Insulin 0.05 U/kg/hr) Hypomg 1.6; Hypophos 1.7---> repleted. Keep her NPO till her abdominal pain resolves Add long acting Insulin once gap closes, start feeds then and stop the insulin drip Finger stick BGMs Q2H Repeat BMP, Mg, Phos in the afternoon, replete lytes as needed Dr. Matamoros consult requested. # Abdominal pain likely secondary to DKA vs possible cystitis vs Right ovarian cyst Abdominal/Pelvis CT: 3.6 cm right ovarian cyst. Uterus is retroverted. Thick walled urinary bladder. Cystitis cannot be excluded. No acute pathology. Pelvic sono is recommended Will continue IV Ceftriaxone 2gm daily for possible cystitis Pelvic sono ordered. If needed will do a Front End Technician eval # Hypothyroidism Patient takes Levothyroxine 125 mcg at home (confirmed with pharmacy) TSH 0.17, Free T4 ordered this am. # Anxiety/Depression disorder Not on any meds # Chest pain and shortness of breath Troponin neg, EKG without any ST or T wave changes. Most likely due to anxiety Continue tele monitoring # Hx of [place] RPR 1:64 and T. pallidum reactive 06/18. Unsure if she was treated in the past # Diabetic neuropathy Takes Gapapentin 300 mg PO TID at home. Continue when able to take PO # Low Vit D Takes Vit D 5000 U every week. # FEN IV D5-/2 NS +20 Kcl @ 100 mls/hr Hypomag, hypophos, hyponatremia-repleted, recheck today PM NPO # Prophylaxis For DVT: On Lovenox 40mg sq daily For GI: On IV Protonix 40mg Daily # Code Status: Full Code Illness, Investigation and Plan of care explained to the patient. She verbalized understanding. Case to be discussed with Dr. Perez. Problem List - Problems (1) Early syphilis, unspecified Code(s): A51.9 - EARLY SYPHILIS, UNSPECIFIED (2) Ovarian cyst Code(s): N83.209 - UNSPECIFIED OVARIAN CYST, UNSPECIFIED SIDE Qualifiers: Laterality: right Qualified Code(s): N83.201 - Unspecified ovarian cyst, right side (3) Hyperglycemia Code(s): R73.9 - HYPERGLYCEMIA, UNSPECIFIED (4) New onset type 1 diabetes mellitus, uncontrolled Code(s): E10.65 - TYPE 1 DIABETES MELLITUS WITH HYPERGLYCEMIA Visit type - Emergency Visit Emergency Visit: Yes ED Registration Date: 08/19/18 Care time: The patient presented to the Emergency Department on the above date and was hospitalized for further evaluation of their emergent condition. - New Patient This patient is new to me today: Yes Date on this admission: 08/19/18 - Critical Care Critical Care patient: Yes Total Critical Care Time (in minutes): 35 Critical Care Statement: The care of this patient involved high complexity decision making to prevent further life threatening deterioration of the patient 's condition and/or to evaluate & treat vital organ system(s) failure or risk of failure. - Discharge Referral Referred to [facility] Med P.C.: No
[2018-08-19] MEDS ORDERED: ENOXAPARIN NA (PORCINE) 40 MG/0.4 ML DISP.SYRIN SQ SCH (10:00)
[2018-08-19] MEDS ORDERED: PANTOPRAZOLE SODIUM 40 MG VIAL IVPUSH SCH (10:00)
[2018-08-19] MEDS ORDERED: NICOTINE 21 MG/24 HOURS TOPICAL PATCH TD SCH (10:15)
[2018-08-19 10:18] LABS: ANION GAP 11 MMOL/L (8-16); BLOOD UREA NITROGEN 9 mg/dL (7-18); CALCIUM 7.7 mg/dL (8.5-10.1); CHLORIDE 110 mmol/L (98-107); CO2 14 mmol/L (21-32); GLUCOSE,RANDOM 139 mg/dL (74-106); POTASSIUM 3.8 mmol/L (3.5-5.1); SODIUM 134 mmol/L (136-145)
[2018-08-19 10:29] VITALS: BMI 23.1
[2018-08-19] MEDS ORDERED: INSULIN (LEVEMIR) 100 UNITS/ML UNITS SQ ONE (11:06)
[2018-08-19] MEDS ORDERED: ACETAMINOPHEN 325 MG TABLET (FP) ONE (11:31)
[2018-08-19] MEDS ORDERED: POTASSIUM PHOSPHATE 30 MM in SODIUM CHLORIDE 250 ML IVPB ONE (11:40)
[2018-08-19] MEDS ORDERED: LACTATED RINGERS SOLUTION 1,000 ML/1,000 ML INFUS.BAG IV SCH (11:45)
[2018-08-19] MEDS ORDERED: CEFTRIAXONE 1 GM in DEXTROSE 5%-WATER - 50 ML IVPB SCH (12:00)
--- NOTE | 2018-08-19 12:01 | PN ---
Progress Note (short form) - Note Progress Note: Patient seen and examined at bedside. Received from ED this AM. Patient complains of mild abdominal pain states she is hungry Admits to insulin noncompliance -states she has not taken her insulin for past few days. Vital Signs Temperature 98.3 F 08/19/18 10:24 Pulse Rate 92 H 08/19/18 10:30 Respiratory Rate 24 H 08/19/18 10:30 Blood Pressure 115/83 08/19/18 10:30 O2 Sat by Pulse Oximetry (%) 100 08/19/18 10:00 PE: AAOx3 NAD NCAT CTAB RRR S1 S2 Soft mildly tender to palpation in epigastrium and suprapubically No lower extremity edema 08/19/18 08/19/18 08/19/18 00:19 00:19 05:01 WBC 15.0 H 15.0 H RBC 4.76 4.25 Hgb 14.5 12.2 Hct 45.4 H D 39.6 MCV 95.3 93.3 MCHC 31.9 L 30.7 L RDW 14.6 13.5 Plt Count 368 241 D Neutrophils % 79.6 D 79.7 Lymphocytes % 13.9 D 10.0 D Monocytes % 6.0 9.9 Eosinophils % 0.1 D 0.0 D Basophils % 0.4 0.4 Sodium 129 L Potassium 4.8 Chloride 96 L Carbon Dioxide 7 L Anion Gap 27 H BUN 14 Creatinine 1.3 08/19/18 08/19/18 05:01 09:35 WBC RBC Hgb Hct MCV MCHC RDW Plt Count Neutrophils % Lymphocytes % Monocytes % Eosinophils % Basophils % Sodium 134 L 134 L Potassium 3.9 3.8 Chloride 107 110 H Carbon Dioxide 9 L 14 L Anion Gap 18 H 11 BUN 12 9 Creatinine 0.8 1.0 A/P: 32F with history of DM PTSD BiPolar Depression and hypothyroidism presents to the hospital found to have DKA and possible UTI. DKA could have been triggered from a UTI vs insulin noncompliance. Problem List: Diabetic Ketoacidosis Volume depletion/Dehydration PTSD Bipolar Depression Hypothyroidism Vitamin D deficiency Hypophosphatemia Hypomagnesemia possible UTI leukocytosis Plan: Will recheck labs now STAT and if anion gap closes will bridge to levemir and feed patient (Diabetic diet) endocrinology consult for both DKA and low TSH Will send UA and UCx to r/o UTI and start ceftriaxone once urine studies sent LR @ 50ml/hr for light IV hydration-patient is tolerating PO at this time replete electrolytes Mg Phos PPI-on protonix as outpatient Lovenox for DVT PPx Will hold synthroid at this time as patient's TSH is very low-endocrinology to see patient Ambulate Patient can be transferred to floors (Med/Surg)
[2018-08-19] MEDS ORDERED: ACETAMINOPHEN 325 MG TABLET (FP) PO ONE (12:21)
--- NOTE | 2018-08-19 12:28 | PN ---
Teaching Attending Note Name of Resident: Ori Li ATTENDING PHYSICIAN STATEMENT I saw and evaluated the patient. I reviewed the resident's note and discussed the case with the resident. I agree with the resident's findings and plan as documented. SUBJECTIVE: Pt seen and examined in the ICU. Anion gap closed now off insulin gtt. Still some mild epigastric pain. OBJECTIVE: Vital Signs Period Temp Pulse Resp BP Sys/[place] Pulse Ox Last 24 Hr 98.1 F-98.3 F 90-115 18-24 110-147/74-91 100-100 Intake & Output 08/16/18 08/17/18 08/18/18 08/19/18 23:59 23:59 23:59 23:59 Weight 63.503 kg 62.913 kg Gen: NAD at rest Heart: RRR Lung: decreased breath sounds at the bases Abd: soft, nontender Ext: no edema CBC, BMP 08/19/18 05:01 08/19/18 09:35 Active Medications Chlorhexidine Gluconate (Hibiclens For Decolonization -) 1 applic TP HS [facility] Enoxaparin Sodium (Lovenox -) 40 mg SQ DAILY [facility] Last Admin: 08/19/18 09:24 Dose: 40 mg Lactated Ringer's (Lactated Ringers Solution) 1,000 ml in 1,000 mls @ 50 mls/ hr IV ASDIR ISI Last Admin: 08/19/18 11:49 Dose: 50 mls/hr Potassium Phosphate 30 mm/ (Sodium Chloride) 260 mls @ 62.5 mls/hr IVPB ONCE ONE Stop: 08/19/18 15:49 Ceftriaxone Sodium 1 gm/ (Dextrose) 50 mls @ 100 mls/hr IVPB DAILY [facility] Insulin Aspart (Novolog Vial Sliding Scale -) 1 vial SQ ACHS [facility]; Protocol Mupirocin (Bactroban Ointment (For Decolonization) -) 1 applic NS BID ISI Stop: 08/24/18 21:59 Nicotine (Nicoderm Patch -) 21 mg TD DAILY ISI Last Admin: 08/19/18 11:32 Dose: 21 mg Pantoprazole Sodium (Protonix -) 40 mg PO DAILY ISI Sodium Chloride ([place] Nasal [place] -) 2 spray NS BID PRN PRN Reason: NASAL CONGESTION ASSESSMENT AND PLAN: Diabetic Ketoacidosis r/o UTI Hyperthyroidism Depression Anxiety - long acting insulin - IVF - send UA, UCx - start empiric antibiotics - replete lytes - PO as tolerated - DVT prophylaxis - can monitor on floor
--- NOTE | 2018-08-19 14:42 | PN ---
Teaching Attending Note Name of Resident: Nora Acevedo ATTENDING PHYSICIAN STATEMENT I saw and evaluated the patient. I reviewed the resident's note and discussed the case with the resident. I agree with the resident's findings and plan as documented. SUBJECTIVE: Ms Costello complains of abdominal pain. Denies cp, sob, n/v. Minimally interactive OBJECTIVE: Gen: nad Pulm: ctab w/o w/r/r CV: rrr w/o m/r/g Abd: +bs, s/nd, TTP in RLQ Ext: no c/c/e ASSESSMENT AND PLAN: -continue insulin gtt with D5 1/2NS until anion gap closed -when AG closed, start on long acting insulin and stop insulin gtt -ok to advance diet -recheck bmp in the afternoon to evaluate gap to make sure it does not re-open -follow up urinalysis, urine and blood culture -continue empiric rocephin since with leukocytosis while cultures pending -suspect abdominal pain is from ovarian cyst, obtain ultrasound Problem List - Problems (1) DKA (diabetic ketoacidosis) Code(s): E13.10 - OTH DIABETES MELLITUS WITH KETOACIDOSIS WITHOUT COMA Qualifiers: Diabetes mellitus type: type 1 Diabetes mellitus complication detail: without coma Qualified Code(s): E10.10 - Type 1 diabetes mellitus with ketoacidosis without coma (2) Ovarian cyst Code(s): N83.209 - UNSPECIFIED OVARIAN CYST, UNSPECIFIED SIDE Qualifiers: Laterality: right Qualified Code(s): N83.201 - Unspecified ovarian cyst, right side
[2018-08-19] MEDS: LACTATED RINGERS SOLUTION 1,000 ML/1,000 ML INFUS.BAG IV SCH (14:55)
[2018-08-19] MEDS ORDERED: PT OWN MED DRAWER 7, Y5N ONE (14:59)
[2018-08-19] MEDS ORDERED: DEXTROSE 5%-WATER 100 ML IVPB ONE ×2 (14:59→20:23)
[2018-08-19] MEDS ORDERED: FLU VACCINE QUAD 60 MCG/0.5 ML (MDV 18-19) IM ONE (16:00)
[2018-08-19 16:04] LABS: URINE APPEARANCE CLOUDY; URINE BILIRUBIN NEGATIVE (<2.0 mg/dL); URINE COLOR LTYELLOW; URINE GLUCOSE (UA) 3+ (NEGATIVE); URINE KETONE 1+ (NEGATIVE); URINE LEUK ESTERASE NEGATIVE (NEGATIVE); URINE NITRITE NEGATIVE (NEGATIVE); URINE PROTEIN NEGATIVE (NEGATIVE); URINE UROBILINOGEN NEGATIVE mg/dL (0.2-1.0)
[2018-08-19 16:22] LABS: EPI CELLS FEW /HPF (FEW); URINE BACTERIA RARE /hpf (NONE SEEN); URINE MUCUS RARE
--- NOTE | 2018-08-19 16:25 | EKG ---
Test Reason : Blood Pressure : / mmHG Vent. Rate : 124 BPM Atrial Rate : 124 BPM P-R Int : 122 ms QRS Dur : 094 ms QT Int : 292 ms P-R-T Axes : 081 063 074 degrees QTc Int : 419 ms SINUS TACHYCARDIA NONSPECIFIC T WAVE ABNORMALITY ABNORMAL ECG Confirmed by MD AL, TAYLOR ([id number]) on 08/19/2018 4:25:27 PM Referred By: Confirmed By:TAYLOR MELENDEZ MD
[2018-08-19] MEDS ORDERED: INSULIN SLIDING SCALE (NOVOLOG) 1 VIAL SQ SCH ×2 (16:30)
[2018-08-19 17:47] LABS: ANION GAP 12 MMOL/L (8-16); BLOOD UREA NITROGEN 8 mg/dL (7-18); CALCIUM 7.7 mg/dL (8.5-10.1); CHLORIDE 105 mmol/L (98-107); CO2 16 mmol/L (21-32); CREATININE 0.7 mg/dL (0.55-1.3); GLUCOSE,RANDOM 173 mg/dL (74-106); SODIUM 133 mmol/L (136-145)
--- NOTE | 2018-08-19 18:44 | CONSULT ---
Consult Consult Specialty:: Endocrinology Referred by:: Tari Villatoro MD Reason for Consultation:: DKA - History of Present Illness Chief Complaint: SOB History of Present Illness: This is a 32 y/o F With PMHx of DM, Depression, Anxiety, ? Thyroid disorder (? Hyper) presents with Chest pain, Dizziness and difficulty breathing x 2 days. Patient felt a similar compilation of symptoms approx 8 weeks ago at which time she was brought to [facility] and worked up for ?Sepsis. Additionally patient experienced some diffuse abdominal pain that radiates upward accompanied by nausea and NBNB vomiting. Patient endorses hyperventilating at home, Polyuria, Polydipsia and Urinary Frequency. Pt found to be in DKA, was admitted to ICU and treated with IV insulin with normalization of A gap and transferred to the floor. Pt took last dose to Basaglar around 2 days ago. FS at home fluctuates between 70 and Hi. - History Source History Provided By: Patient, Medical Record - Past Medical History ...LMP: 08/03/18 ...: No Endocrine: Yes: Diabetes Mellitus - Past Surgical History Past Surgical History: Yes: - Alcohol/Substance Use Hx Alcohol Use: No - Smoking History Smoking history: Current every day smoker Have you smoked in the past 12 months: Yes Aproximately how many cigarettes per day: 20 - Social History ADL: Independent Home Medications - Allergies Allergies/Adverse Reactions: Allergies Allergy/AdvReac Type Severity Reaction Status Date / Time No Known Allergies Allergy Verified 08/18/18 23:31 - Home Medications Home Medications: Ambulatory Orders Gabapentin 300 mg PO TID 08/19/18 Insulin Glargine,Hum.rec.anlog [Lantus Solostar PEN (NF)] 25 units .ROUTE DAILY 08/19/18 Levothyroxine [Synthroid -] 125 mcg PO DAILY@0700 08/19/18 Pantoprazole Sodium 40 mg PO DAILY 08/19/18 Family Disease History - Family Disease History Family Disease History: Diabetes: Grandparent Review of Systems - Review of Systems Constitutional: reports: Malaise Eyes: reports: No Symptoms HENT: reports: No Symptoms Neck: reports: No Symptoms Cardiovascular: reports: No Symptoms Respiratory: reports: No Symptoms Gastrointestinal: reports: Abdominal Pain Genitourinary: reports: No Symptoms Musculoskeletal: reports: No Symptoms Neurological: reports: No Symptoms (of feet off and on), Parasthesia Endocrine: reports: No Symptoms Physical Exam Vital Signs: Vital Signs Temperature 98.1 F 08/19/18 18:00 Pulse Rate 90 08/19/18 18:00 Respiratory Rate 25 H 08/19/18 18:00 Blood Pressure 112/73 08/19/18 18:00 O2 Sat by Pulse Oximetry (%) 100 08/19/18 10:00 Constitutional: Yes: No Distress, Calm Eyes: Yes: Conjunctiva Clear, EOM Intact HENT: Yes: Atraumatic, Normocephalic Neck: Yes: Supple, Trachea Midline Cardiovascular: Yes: Regular Rate and Rhythm Respiratory: Yes: Regular, CTA Bilaterally Gastrointestinal: Yes: Normal Bowel Sounds, Soft Musculoskeletal: Yes: WNL Extremities: Yes: WNL Edema: No Neurological: Yes: Alert, Oriented Labs: CBC, BMP 08/19/18 05:01 08/19/18 17:00 Assessment/Plan AP; DKA DM ? Thyroid disorder/? Sick euthyroid: Took LT4 for about 3 months and stopped about 6 weeks ago as per pt. TSH 0.17 with FT4 0.65 Off Insulin drip BGM QACHS and 3 AM Levemir 25 units daily NOvolog SS coverage Electrolyte replacement as necessary Will need to repeat TFT once acute illness is resolved. It the TFT pattern of low TSH and low FT4 remains, will need to get MRI of Pituitary to r/o Central Hypothyroidism Will f/u
[2018-08-19] MEDS: CEFTRIAXONE 2 GM in DEXTROSE 5%-WATER 100 ML IVPB SCH (20:26)
[2018-08-19] MEDS ORDERED: INSULIN (NOVOLOG) ASPART 100 UNITS/ML 10ML VIAL ONE (21:35)
[2018-08-19] MEDS: INSULIN SLIDING SCALE (NOVOLOG) 1 VIAL SQ SCH (21:41)
[2018-08-19] MEDS ORDERED: CHLORHEXIDINE GLUCONATE 4% CLEANSER FOR DECOLONIZATION TP SCH (22:00)
[2018-08-19] MEDS ORDERED: MUPIROCIN 2% TOPICAL OINTMENT FOR DECOLONIZATION NS SCH (22:00)
[2018-08-19] MEDS ORDERED: LORATADINE 10 MG TABLET PO ONE (23:30)
[2018-08-20] MEDS: INSULIN SLIDING SCALE (NOVOLOG) 1 VIAL SQ SCH ×4 (06:35→22:24)
[2018-08-20] MEDS ORDERED: PANTOPRAZOLE 40 MG TABLET (FP) PO SCH (10:00)
[2018-08-20 10:23] LABS: HEMOGLOBIN 12.5 GM/dL (10.7-15.3); MCH 30.6 pg (25.7-33.7); MCHC 34.6 g/dl (32.0-36.0); MEAN CELL VOLUME 88.5 fl (80-96); MEAN PLT VOLUME 8.3 fl (7.5-11.1); PLATELET COUNT 241 K/MM3 (134-434); RBC 4.07 M/mm3 (3.60-5.2); RDW 13.5 % (11.6-15.6); WHITE BLOOD COUNT 5.2 K/mm3 (4.0-10.0)
[2018-08-20] MEDS ORDERED: DEXTROSE 5%-WATER 100 ML IVPB ONE (10:54)
[2018-08-20] MEDS: NICOTINE 21 MG/24 HOURS TOPICAL PATCH TD SCH (10:58)
[2018-08-20] MEDS: CEFTRIAXONE 2 GM in DEXTROSE 5%-WATER 100 ML IVPB SCH (10:58)
[2018-08-20] MEDS: ENOXAPARIN NA (PORCINE) 40 MG/0.4 ML DISP.SYRIN SQ SCH (10:58)
[2018-08-20] MEDS: PANTOPRAZOLE 40 MG TABLET (FP) PO SCH (10:58)
[2018-08-20 11:18] LABS: ALBUMIN 2.8 g/dl (3.4-5.0); ALK PHOS 64 U/L (45-117); ANION GAP 10 MMOL/L (8-16); BILIRUBIN,TOTAL 0.8 mg/dL (0.2-1); BLOOD UREA NITROGEN 6 mg/dL (7-18); CALCIUM 7.5 mg/dL (8.5-10.1); CHLORIDE 103 mmol/L (98-107); CO2 23 mmol/L (21-32); CREATININE 0.6 mg/dL (0.55-1.3); PHOSPHOROUS 1.9 mg/dL (2.5-4.9); POTASSIUM 3.6 mmol/L (3.5-5.1); SGOT/AST 11 U/L (15-37); SGPT/ALT 16 U/L (13-61); SODIUM 136 mmol/L (136-145); TOT PROT 5.6 g/dl (6.4-8.2)
[2018-08-20] MEDS ORDERED: INSULIN (NOVOLOG) ASPART 100 UNITS/ML 10ML VIAL ONE ×2 (11:28→17:09)
[2018-08-20 12:21] LABS: GLUCOSE,RANDOM 305 mg/dL (74-106)
[2018-08-20] MEDS ORDERED: POTASSIUM PHOSPHATE 40 MM in SODIUM CHLORIDE 500 ML IVPB ONE (13:06)
--- NOTE | 2018-08-20 13:09 | PN ---
Physical Exam: SUBJECTIVE: Patient seen and examined at bed side this morning. Patient was eating lunch. States she feels better. Minimal abdominal pain. Overnight, she developed swelling of the vulva with some itching but no vaginal discharged. Reports she had a pap smear done 6 months ago and it was normal. LMP: 08/04/2018. Denies chest pain, palpitations, sob, cough, nausea or vomiting. Sleep/Appetite normal. Patient transferred from ICU to Med-Surg yesterday. OBJECTIVE: Vital Signs Period Temp Pulse Resp BP Sys/Irwin Pulse Ox Last 24 Hr 98.1 F-98.7 F 74-94 19-26 101-129/60-86 97-98 GENERAL: Young female, sitting in bed, eating lunch, in no acute distress. HEAD: Normal with no signs of trauma. EYES: EOM intact, no pallor or icterus. ENT: Ears normal. Moist mucous membranes. NECK: Supple. LUNGS: Breath sounds equal, clear to auscultation bilaterally, no wheezes, no crackles, no accessory muscle use. HEART: Tachycardic, Regular rate and rhythm, S1, S2 without murmur. ABDOMEN: Soft, nontender, no organomegaly. GENITAL: Swollen vulva +, no vaginal discharge, tender to touch, has an area of hard area in labia majora which is tender. EXTREMITIES: 2+ pulses, warm, well-perfused, no edema. NEUROLOGICAL: No facial droop. Normal speech, gait not observed. PSYCH: Normal mood, normal affect. SKIN: Warm, dry, normal turgor, no rashes or lesions noted Laboratory Results - last 24 hr 08/19/18 08/19/18 08/19/18 15:15 16:01 17:00 WBC RBC Hgb Hct MCV MCH MCHC RDW Plt Count MPV Sodium 133 L Potassium 4.0 Chloride 105 Carbon Dioxide 16 L Anion Gap 12 BUN 8 Creatinine 0.7 Creat Clearance w eGFR > 60 POC Glucometer 158 Random Glucose 173 H Calcium 7.7 L Phosphorus Magnesium Total Bilirubin AST ALT Alkaline Phosphatase Total Protein Albumin Urine Color Ltyellow Urine Appearance Cloudy Urine pH 5.0 Ur Specific [place] 1.012 Urine Protein Negative Urine Glucose (UA) 3+ H Urine Ketones 1+ H Urine Blood 2+ H Urine Nitrite Negative Urine Bilirubin Negative Urine Urobilinogen Negative Ur Leukocyte Esterase Negative Urine WBC (Auto) 20 Urine RBC (Auto) 2 Ur Epithelial Cells Few Urine Bacteria Rare Urine Mucus Rare 08/19/18 08/20/18 08/20/18 21:40 06:34 10:04 WBC 5.2 RBC 4.07 Hgb 12.5 Hct 36.0 MCV 88.5 MCH 30.6 MCHC 34.6 RDW 13.5 Plt Count 241 MPV 8.3 Sodium Potassium Chloride Carbon Dioxide Anion Gap BUN Creatinine Creat Clearance w eGFR POC Glucometer 257 191 Random Glucose Calcium Phosphorus Magnesium Total Bilirubin AST ALT Alkaline Phosphatase Total Protein Albumin Urine Color Urine Appearance Urine pH Ur Specific [place] Urine Protein Urine Glucose (UA) Urine Ketones Urine Blood Urine Nitrite Urine Bilirubin Urine Urobilinogen Ur Leukocyte Esterase Urine WBC (Auto) Urine RBC (Auto) Ur Epithelial Cells Urine Bacteria Urine Mucus 08/20/18 08/20/18 10:04 11:26 WBC RBC Hgb Hct MCV MCH MCHC RDW Plt Count MPV Sodium 136 Potassium 3.6 Chloride 103 Carbon Dioxide 23 Anion Gap 10 BUN 6 L Creatinine 0.6 Creat Clearance w eGFR > 60 POC Glucometer 371 Random Glucose 305 H* Calcium 7.5 L Phosphorus 1.9 L Magnesium 2.0 Total Bilirubin 0.8 AST 11 L ALT 16 Alkaline Phosphatase 64 Total Protein 5.6 L Albumin 2.8 L Urine Color Urine Appearance Urine pH Ur Specific [place] Urine Protein Urine Glucose (UA) Urine Ketones Urine Blood Urine Nitrite Urine Bilirubin Urine Urobilinogen Ur Leukocyte Esterase Urine WBC (Auto) Urine RBC (Auto) Ur Epithelial Cells Urine Bacteria Urine Mucus Active Medications Generic Name Dose Route Start Last Admin Trade Name Freq PRN Reason Stop Dose Admin Enoxaparin Sodium 40 mg 08/20/18 10:00 08/20/18 10:58 Lovenox - SQ 40 mg DAILY ISI Administration Gabapentin 300 mg 08/20/18 14:00 Neurontin - PO TID ISI Ceftriaxone Sodium 2 gm/ 100 mls @ 200 mls/hr 08/19/18 12:45 08/20/18 10:58 Dextrose IVPB 200 mls/hr DAILY ISI Administration Protocol Lactated Ringer's 1,000 ml in 1,000 mls @ 50 mls/hr 08/19/18 13:40 08/19/18 14:55 Lactated Ringers Solution IV 50 mls/hr ASDIR ISI Administration Potassium Phosphate 40 mm/ 263.3333 mls @ 62.5 mls/hr 08/20/18 13:06 Sodium Chloride IVPB 08/20/18 17:18 ONCE ONE Insulin Aspart 1 vial 08/19/18 22:00 08/19/18 21:41 Novolog Vial Sliding Scale - SQ 4 units HS ISI Administration Protocol Insulin Aspart 1 vial 08/20/18 07:00 08/20/18 11:31 Novolog Vial Sliding Scale - SQ 10 units TIDAC ISI Administration Protocol Insulin Detemir 25 units 08/20/18 22:00 Levemir Vial SQ HS ISI Levothyroxine Sodium 125 mcg 08/21/18 07:00 Synthroid - PO DAILY@0700 ISI Nicotine 21 mg 08/20/18 10:00 08/20/18 10:58 Nicoderm Patch - TD 21 mg DAILY ISI Administration Pantoprazole Sodium 40 mg 08/20/18 10:00 08/20/18 10:58 Protonix - PO 40 mg DAILY ISI Administration Sodium Chloride 2 spray 08/19/18 13:40 [place] Nasal [place] - NS BID PRN NASAL CONGESTION Renal ultrasound 08/19/18: Tiny calcific densities in the anterior myometrium. Uterus and ovaries normal Abdominal/Pelvis CT: 3.6 cm right ovarian cyst. Uterus is retroverted. Thick walled urinary bladder. Cystitis cannot be excluded. No acute pathology. Pelvic sono is recommended ASSESSMENT/PLAN: Patient is a 32 year old Female with PMHx of DM, Depression, Anxiety, Thyroid disorder (possibly hyperthyroidism) presents with Chest pain, Dizziness and difficulty breathing x 2 days. # Diabetic Ketoacidosis likely due to non compliance to medication- now resolved AG closed yesterday, started on diet, added Levemir and transferred from ICU to Med-surg yesterday. Finger stick glucose monitoring. Random glucose 305 today, AG 12 Continue Levemir 25 Units sq HS ISS, watch for hypoglycemic episodes. Diabetic diet Needs close f/up as outpatient Appreciate Dr. Matamoros's recommendations. # UTI UC growing Lactose fermenting gm neg bacilli. Sensitivity pending. Will switch abx as per c/s. BC pending For now continue IV Ceftriaxone 2mg daily- Day 2 # Swollen vulva ? abscess Could have been aggravated by recent shaving of the area. No vaginal discharge. Will r/o STD's. Chlamydia/Gonorrhoe and HSV PCR ordered Currently on IV Ceftriaxone but probably needs a broader coverage. Will consult ID. Pap smear was done 6 months ago and it was normal as per the patient. Consult [facility]. # Hypothyroidism Continue Levothyroxine 125 mcg at home (confirmed with pharmacy) TSH 0.17, Free T4 0.70. Plan is to repeat Tft's once her acute illness resolves F/up with Delivery Specialist as outpatient. # Anxiety/Depression disorder Not on any meds # Chest pain and shortness of breath- resolved # Hx of [place] RPR 1:64 and T. pallidum reactive 06/18. Patient states she was treated with antibiotics. # Diabetic neuropathy Takes Gapapentin 300 mg PO TID at home. Continue when able to take PO # Low Vit D Takes Vit D 5000 U every week. # Active smoker: Continue Nicotine Patch 21 mg TD daily # FEN Will discontinue IV fluids as patient is able to take PO. Hypophosphatemia-repleted, recheck in the morning Diabetic diet # Prophylaxis For DVT: On Lovenox 40mg sq daily For GI: On IV Protonix 40mg Daily # Code Status: Full Code Illness, Investigation and Plan of care explained to the patient. She verbalized understanding. Case discussed with Dr. Lopez. Problem List - Problems (1) Early syphilis, unspecified Code(s): A51.9 - EARLY SYPHILIS, UNSPECIFIED (2) Ovarian cyst Code(s): N83.209 - UNSPECIFIED OVARIAN CYST, UNSPECIFIED SIDE Qualifiers: Laterality: right Qualified Code(s): N83.201 - Unspecified ovarian cyst, right side (3) Hyperglycemia Code(s): R73.9 - HYPERGLYCEMIA, UNSPECIFIED (4) New onset type 1 diabetes mellitus, uncontrolled Code(s): E10.65 - TYPE 1 DIABETES MELLITUS WITH HYPERGLYCEMIA Visit type - Emergency Visit Emergency Visit: Yes ED Registration Date: 08/19/18 Care time: The patient presented to the Emergency Department on the above date and was hospitalized for further evaluation of their emergent condition. - New Patient This patient is new to me today: No - Critical Care Critical Care patient: No
[2018-08-20] MEDS: LACTATED RINGERS SOLUTION 1,000 ML/1,000 ML INFUS.BAG IV SCH (13:40)
--- NOTE | 2018-08-20 14:14 | PN ---
Teaching Attending Note Name of Resident: Nora Acevedo ATTENDING PHYSICIAN STATEMENT I saw and evaluated the patient. I reviewed the resident's note and discussed the case with the resident. I agree with the resident's findings and plan as documented. SUBJECTIVE: Patient complains of pain and swelling of her vulva. OBJECTIVE: Vital Signs Period Temp Pulse Resp BP Sys/Irwin Pulse Ox Last 24 Hr 98.1 F-98.6 F 74-94 19-25 101-116/60-86 97-98 HEART: S1S2, RRR LUNGS: Clear ABDOMEN: Soft, non-tender, non-distended, normal BS EXTREMITIES: No edema GENITALIA: Left labia majora edematous, tender, indurated Laboratory Results - last 24 hr 08/19/18 08/19/18 08/19/18 15:15 16:01 17:00 WBC RBC Hgb Hct MCV MCH MCHC RDW Plt Count MPV Sodium 133 L Potassium 4.0 Chloride 105 Carbon Dioxide 16 L Anion Gap 12 BUN 8 Creatinine 0.7 Creat Clearance w eGFR > 60 POC Glucometer 158 Random Glucose 173 H Calcium 7.7 L Phosphorus Magnesium Total Bilirubin AST ALT Alkaline Phosphatase Total Protein Albumin Urine Color Ltyellow Urine Appearance Cloudy Urine pH 5.0 Ur Specific [place] 1.012 Urine Protein Negative Urine Glucose (UA) 3+ H Urine Ketones 1+ H Urine Blood 2+ H Urine Nitrite Negative Urine Bilirubin Negative Urine Urobilinogen Negative Ur Leukocyte Esterase Negative Urine WBC (Auto) 20 Urine RBC (Auto) 2 Ur Epithelial Cells Few Urine Bacteria Rare Urine Mucus Rare 08/19/18 08/20/18 08/20/18 21:40 06:34 10:04 WBC 5.2 RBC 4.07 Hgb 12.5 Hct 36.0 MCV 88.5 MCH 30.6 MCHC 34.6 RDW 13.5 Plt Count 241 MPV 8.3 Sodium Potassium Chloride Carbon Dioxide Anion Gap BUN Creatinine Creat Clearance w eGFR POC Glucometer 257 191 Random Glucose Calcium Phosphorus Magnesium Total Bilirubin AST ALT Alkaline Phosphatase Total Protein Albumin Urine Color Urine Appearance Urine pH Ur Specific [place] Urine Protein Urine Glucose (UA) Urine Ketones Urine Blood Urine Nitrite Urine Bilirubin Urine Urobilinogen Ur Leukocyte Esterase Urine WBC (Auto) Urine RBC (Auto) Ur Epithelial Cells Urine Bacteria Urine Mucus 08/20/18 08/20/18 10:04 11:26 WBC RBC Hgb Hct MCV MCH MCHC RDW Plt Count MPV Sodium 136 Potassium 3.6 Chloride 103 Carbon Dioxide 23 Anion Gap 10 BUN 6 L Creatinine 0.6 Creat Clearance w eGFR > 60 POC Glucometer 371 Random Glucose 305 H* Calcium 7.5 L Phosphorus 1.9 L Magnesium 2.0 Total Bilirubin 0.8 AST 11 L ALT 16 Alkaline Phosphatase 64 Total Protein 5.6 L Albumin 2.8 L Urine Color Urine Appearance Urine pH Ur Specific [place] Urine Protein Urine Glucose (UA) Urine Ketones Urine Blood Urine Nitrite Urine Bilirubin Urine Urobilinogen Ur Leukocyte Esterase Urine WBC (Auto) Urine RBC (Auto) Ur Epithelial Cells Urine Bacteria Urine Mucus Current Medications Generic Name Dose Route Start Last Admin Trade Name Freq PRN Reason Stop Dose Admin Enoxaparin Sodium 40 mg 08/20/18 10:00 08/20/18 10:58 Lovenox - SQ 40 mg DAILY ISI Administration Gabapentin 300 mg 08/20/18 14:00 Neurontin - PO TID ISI Ceftriaxone Sodium 2 gm/ 100 mls @ 200 mls/hr 08/19/18 12:45 08/20/18 10:58 Dextrose IVPB 200 mls/hr DAILY ISI Administration Protocol Lactated Ringer's 1,000 ml in 1,000 mls @ 50 mls/hr 08/19/18 13:40 08/19/18 14:55 Lactated Ringers Solution IV 50 mls/hr ASDIR ISI Administration Potassium Phosphate 40 mm/ 513.3333 mls @ 62.5 mls/hr 08/20/18 13:06 Sodium Chloride IVPB 08/20/18 21:18 ONCE ONE Insulin Aspart 1 vial 08/19/18 22:00 08/19/18 21:41 Novolog Vial Sliding Scale - SQ 4 units HS [facility] Administration Protocol Insulin Aspart 1 vial 08/20/18 07:00 08/20/18 11:31 Novolog Vial Sliding Scale - SQ 10 units TIDAC [facility] Administration Protocol Insulin Detemir 25 units 08/20/18 22:00 Levemir Vial SQ [facility] Levothyroxine Sodium 125 mcg 08/21/18 07:00 Synthroid - PO DAILY@0700 ISI Nicotine 21 mg 08/20/18 10:00 08/20/18 10:58 Nicoderm Patch - TD 21 mg DAILY ISI Administration Pantoprazole Sodium 40 mg 08/20/18 10:00 08/20/18 10:58 Protonix - PO 40 mg DAILY ISI Administration Sodium Chloride 2 spray 08/19/18 13:40 [place] Nasal [place] - NS BID PRN NASAL CONGESTION ASSESSMENT AND PLAN: This is a 32 year old woman with a history of type 1 DM, depression, anxiety, hypothyroidism who presented to the ED with chest pain, SOB, and dizziness. 1. DKA - Resolved 2. Uncontrolled type 1 DM with peripheral neuropathy - Continue Levemir, Novolog sliding scale, Neurontin 3. UTI - Urine culture growing gram neg rods - Continue ceftriaxone - Follow up identification and sensitivities 4. Possible labial cyst, cellulitis Swollen vulva ? abscess - Currently on ceftriaxone for UTI - Transplant Coordinator consult 5. Hypothyroidism - Resume Synthroid 6. Depression with anxiety - On no meds 7. History of syphilis - Patient reports being treated 8. Vitamin D deficiency Takes Vit D 5000 U every week. 9. Nicotine dependence - Continue nicotine patch 10. Hypophosphatemia - Continue to replete phosphorus as needed 11. Hypomagnesemia - Improved
[2018-08-20] MEDS: GABAPENTIN 300 MG CAPSULE (FP) PO SCH ×2 (14:36→22:24)
[2018-08-20] MEDS ORDERED: INSULIN (LEVEMIR) 100 UNITS/ML UNITS SQ ONE (16:32)
--- NOTE | 2018-08-20 16:35 | PN ---
Progress Note (short form) - Note Progress Note: Feels good Denies any complaints Vital Signs Period Temp Pulse Resp BP Sys/Irwin Pulse Ox Last 24 Hr 98.1 F-98.6 F 74-94 19-25 101-116/60-86 98-98 PE: AOx3 Neck: Supple, No JVD HEENT: EOMI Lungs: CTA CVS: S1S2 Abd: Benigm EXt: No edema Neuro: No focal deficit CMP Sodium 136 mmol/L (136-145) 08/20/18 10:04 Potassium 3.6 mmol/L (3.5-5.1) 08/20/18 10:04 Chloride 103 mmol/L (98-107) 08/20/18 10:04 Carbon Dioxide 23 mmol/L (21-32) 08/20/18 10:04 Anion Gap 10 MMOL/L (8-16) 08/20/18 10:04 BUN 6 mg/dL (7-18) L 08/20/18 10:04 Creatinine 0.6 mg/dL (0.55-1.3) 08/20/18 10:04 Creat Clearance w eGFR > 60 (>60) 08/20/18 10:04 POC Glucometer 375 UNITS (80-120) 08/20/18 16:40 Random Glucose 305 mg/dL (74-106) H* 08/20/18 10:04 Calcium 7.5 mg/dL (8.5-10.1) L 08/20/18 10:04 Phosphorus 1.9 mg/dL (2.5-4.9) L 08/20/18 10:04 Magnesium 2.0 mg/dL (1.8-2.4) 08/20/18 10:04 Total Bilirubin 0.8 mg/dL (0.2-1) 08/20/18 10:04 AST 11 U/L (15-37) L 08/20/18 10:04 ALT 16 U/L (13-61) 08/20/18 10:04 Alkaline Phosphatase 64 U/L (45-117) 08/20/18 10:04 Creatine Kinase 86 IU/L (26-192) 08/19/18 05:01 Troponin I < 0.02 ng/ml (0.00-0.05) 08/19/18 05:01 Total Protein 5.6 g/dl (6.4-8.2) L 08/20/18 10:04 Albumin 2.8 g/dl (3.4-5.0) L 08/20/18 10:04 TSH 0.17 uIU/ml (0.358-3.74) L 08/19/18 05:01 Free T4 0.70 ng/dl (0.76-1.46) L 08/19/18 09:35 Serum , Qual Negative 08/19/18 00:19 Current Medications Generic Name Dose Route Start Last Admin Trade Name Freq PRN Reason Stop Dose Admin Enoxaparin Sodium 40 mg 08/20/18 10:00 08/20/18 10:58 Lovenox - SQ 40 mg DAILY ISI Administration Gabapentin 300 mg 08/20/18 14:00 08/20/18 14:36 Neurontin - PO 300 mg TID ISI Administration Ceftriaxone Sodium 2 gm/ 100 mls @ 200 mls/hr 08/19/18 12:45 08/20/18 10:58 Dextrose IVPB 200 mls/hr DAILY ISI Administration Protocol Lactated Ringer's 1,000 ml in 1,000 mls @ 50 mls/hr 08/19/18 13:40 08/20/18 13:40 Lactated Ringers Solution IV Not Given ASDIR [facility] Potassium Phosphate 40 mm/ 513.3333 mls @ 62.5 mls/hr 08/20/18 13:06 14:36 Sodium Chloride IVPB 08/20/18 21:18 62.5 mls/hr ONCE ONE Administration Piperacillin Sod/Tazobactam 50 mls @ 100 mls/hr 08/20/18 17:45 Sod 3.375 gm/ Dextrose IVPB 08/20/18 18:14 ONCE ONE Protocol Insulin Aspart 1 vial 08/19/18 22:00 08/19/18 21:41 Novolog Vial Sliding Scale - SQ 4 units HS [facility] Administration Protocol Insulin Aspart 1 vial 08/20/18 07:00 08/20/18 17:15 Novolog Vial Sliding Scale - SQ 10 units TIDAC [facility] Administration Protocol Insulin Detemir 25 units 08/21/18 22:00 Levemir Vial SQ HS [facility] Levothyroxine Sodium 125 mcg 08/21/18 07:00 Synthroid - PO DAILY@0700 [facility] Nicotine 21 mg 08/20/18 10:00 12/19/18 10:58 Nicoderm Patch - TD 21 mg DAILY ISI Administration Pantoprazole Sodium 40 mg 08/20/18 10:00 08/20/18 10:58 Protonix - PO 40 mg DAILY ISI Administration Sodium Chloride 2 spray 08/19/18 13:40 [place] Nasal [place] - NS BID PRN NASAL CONGESTION AP; DKA: Resolved DM ? Thyroid disorder/? Sick euthyroid: Took LT4 for about 3 months and stopped about 6 weeks ago as per pt. TSH 0.17 with FT4 0.65 BGM QACHS and 3 AM Levemir 25 units daily, stat now NOvolog SS coverage Electrolyte replacement as necessary Will need to repeat TFT once acute illness is resolved. It the TFT pattern of low TSH and low FT4 remains, will need to get MRI of Pituitary to r/o Central Hypothyroidism Will f/u
[2018-08-20] MEDS ORDERED: PIPERACILLIN/TAZOB 3.375 GM 3.375 GM in DEXTROSE 5%-WATER - 50 ML IVPB ONE (17:45)
[2018-08-20] MEDS ORDERED: DEXTROSE 5%-WATER - 50 ML IVPB ONE (21:55)
[2018-08-20] MEDS ORDERED: PIPERACILLIN/TAZOBACTAM 3.375 GM VIAL IVPB ONE (21:55)
[2018-08-20] MEDS ORDERED: INSULIN (LEVEMIR) 100 UNITS/ML UNITS SQ SCH (22:00)
[2018-08-21] MEDS: LACTATED RINGERS SOLUTION 1,000 ML/1,000 ML INFUS.BAG IV SCH (01:09)
[2018-08-21] MEDS ORDERED: ACETAMINOPHEN 325 MG TABLET (FP) PO ONE (01:50)
[2018-08-21] MEDS: GABAPENTIN 300 MG CAPSULE (FP) PO SCH ×3 (06:13→21:19)
[2018-08-21] MEDS: INSULIN SLIDING SCALE (NOVOLOG) 1 VIAL SQ SCH ×5 (06:13→23:31)
[2018-08-21] MEDS ORDERED: INSULIN (NOVOLOG) ASPART 100 UNITS/ML 10ML VIAL ONE ×2 (06:51→19:49)
[2018-08-21] MEDS ORDERED: LEVOTHYROXINE NA 125 MCG TABLET (FP) PO SCH (07:00)
[2018-08-21 07:46] LABS: ANION GAP 7 MMOL/L (8-16); BLOOD UREA NITROGEN 10 mg/dL (7-18); CALCIUM 8.1 mg/dL (8.5-10.1); CHLORIDE 104 mmol/L (98-107); CO2 27 mmol/L (21-32); CREATININE 0.4 mg/dL (0.55-1.3); GLUCOSE,RANDOM 227 mg/dL (74-106); MAGNESIUM 2.1 mg/dL (1.8-2.4); POTASSIUM 3.6 mmol/L (3.5-5.1); SODIUM 138 mmol/L (136-145)
[2018-08-21 07:54] LABS: HEMATOCRIT 34.2 % (32.4-45.2); HEMOGLOBIN 11.9 GM/dL (10.7-15.3); MCH 30.6 pg (25.7-33.7); MCHC 34.6 g/dl (32.0-36.0); MEAN CELL VOLUME 88.4 fl (80-96); MEAN PLT VOLUME 8.9 fl (7.5-11.1); PLATELET COUNT 239 K/MM3 (134-434); RBC 3.87 M/mm3 (3.60-5.2); RDW 13.6 % (11.6-15.6); WHITE BLOOD COUNT 4.2 K/mm3 (4.0-10.0)
[2018-08-21] MEDS ORDERED: DEXTROSE 5%-WATER 100 ML IVPB ONE (08:25)
--- NOTE | 2018-08-21 09:16 | PN ---
Progress Note (short form) - Note Progress Note: Feels good Denies any complaints Vital Signs Period Temp Pulse Resp BP Sys/Irwin Pulse Ox Last 24 Hr 97.9 F-98.5 F 71-92 18-20 101-129/61-77 PE: AOx3 Neck: Supple, No JVD HEENT: EOMI Lungs: CTA CVS: S1S2 Abd: Benigm EXt: No edema Neuro: No focal deficit CMP Sodium 138 mmol/L (136-145) 08/21/18 06:30 Potassium 3.6 mmol/L (3.5-5.1) 08/21/18 06:30 Chloride 104 mmol/L (98-107) 08/21/18 06:30 Carbon Dioxide 27 mmol/L (21-32) 08/21/18 06:30 Anion Gap 7 MMOL/L (8-16) L 08/21/18 06:30 BUN 10 mg/dL (7-18) 08/21/18 06:30 Creatinine 0.4 mg/dL (0.55-1.3) L 08/21/18 06:30 Creat Clearance w eGFR > 60 (>60) 08/21/18 06:30 POC Glucometer 340 UNITS (80-120) 08/21/18 11:08 Random Glucose 227 mg/dL (74-106) H 08/21/18 06:30 Calcium 8.1 mg/dL (8.5-10.1) L 08/21/18 06:30 Phosphorus 4.0 mg/dL (2.5-4.9) 08/21/18 06:30 Magnesium 2.1 mg/dL (1.8-2.4) 08/21/18 06:30 Total Bilirubin 0.8 mg/dL (0.2-1) 08/20/18 10:04 AST 11 U/L (15-37) L 08/20/18 10:04 ALT 16 U/L (13-61) 08/20/18 10:04 Alkaline Phosphatase 64 U/L (45-117) 08/20/18 10:04 Creatine Kinase 86 IU/L (26-192) 08/19/18 05:01 Troponin I < 0.02 ng/ml (0.00-0.05) 08/19/18 05:01 Total Protein 5.6 g/dl (6.4-8.2) L 08/20/18 10:04 Albumin 2.8 g/dl (3.4-5.0) L 08/20/18 10:04 TSH 0.17 uIU/ml (0.358-3.74) L 08/19/18 05:01 Free T4 0.70 ng/dl (0.76-1.46) L 08/19/18 09:35 Serum , Qual Negative 08/19/18 00:19 Current Medications Generic Name Dose Route Start Last Admin Trade Name Freq PRN Reason Stop Dose Admin Acetaminophen 650 mg 08/21/18 10:41 08/21/18 11:02 Tylenol - PO 650 mg Q6H PRN Administration PAIN LEVEL 7 - 10 Enoxaparin Sodium 40 mg 08/20/18 10:00 08/21/18 09:47 Lovenox - SQ 40 mg DAILY ISI Administration Gabapentin 300 mg 08/20/18 14:00 08/21/18 06:13 Neurontin - PO 300 mg TID ISI Administration Ceftriaxone Sodium 2 gm/ 100 mls @ 200 mls/hr 08/19/18 12:45 08/21/18 09:44 Dextrose IVPB 200 mls/hr DAILY ISI Administration Protocol Insulin Aspart 1 vial 08/19/18 22:00 08/20/18 22:24 Novolog Vial Sliding Scale - SQ 8 units HS ISI Administration Protocol Insulin Aspart 1 vial 08/20/18 07:00 08/21/18 12:24 Novolog Vial Sliding Scale - SQ 8 units TIDAC [facility] Administration Protocol Insulin Detemir 25 units 08/21/18 22:00 Levemir Vial SQ HS ISI Levothyroxine Sodium 125 mcg 08/21/18 07:00 08/21/18 06:13 Synthroid - PO 125 mcg DAILY@0700 ISI Administration Nicotine 21 mg 08/20/18 10:00 08/21/18 09:44 Nicoderm Patch - TD 21 mg DAILY ISI Administration Pantoprazole Sodium 40 mg 08/20/18 10:00 08/21/18 09:44 Protonix - PO 40 mg DAILY ISI Administration Sodium Chloride 2 spray 08/19/18 13:40 [place] Nasal [place] - NS BID PRN NASAL CONGESTION AP; DKA: Resolved DM ? Thyroid disorder/? Sick euthyroid: Took LT4 for about 3 months and stopped about 6 weeks ago as per pt. This confirmed today again by patient. The inhospital TSH of 0.17 with FT4 0.65 is not possible if she really needed LT4 125mcg daily and was taking it until 6 weeks ago. BGM QACHS and 3 AM Levemir 25 units daily, at HS NOvolog SS coverage Electrolyte replacement as necessary D/C Levothyroxine for now Will need to repeat TFT once acute illness is resolved. Discussed with pt to get TFT done by his PCP within the next 2 week and f/u with me if abnormal. Further management depending on the results. It the TFT pattern of low TSH and low FT4 remains, will need to get MRI of Pituitary to r/o Central Hypothyroidism Will f/u
[2018-08-21] MEDS: PANTOPRAZOLE 40 MG TABLET (FP) PO SCH (09:44)
[2018-08-21] MEDS: NICOTINE 21 MG/24 HOURS TOPICAL PATCH TD SCH (09:44)
[2018-08-21] MEDS: CEFTRIAXONE 2 GM in DEXTROSE 5%-WATER 100 ML IVPB SCH (09:44)
[2018-08-21] MEDS: ENOXAPARIN NA (PORCINE) 40 MG/0.4 ML DISP.SYRIN SQ SCH (09:47)
[2018-08-21] MEDS ORDERED: ACETAMINOPHEN 325 MG TABLET (FP) PO PRN (10:41)
--- NOTE | 2018-08-21 11:57 | PN ---
Teaching Attending Note Name of Resident: Nora Acevedo ATTENDING PHYSICIAN STATEMENT I saw and evaluated the patient. I reviewed the resident's note and discussed the case with the resident. I agree with the resident's findings and plan as documented. SUBJECTIVE: Patient noted drainage from her left labia majora overnight. OBJECTIVE: Vital Signs Period Temp Pulse Resp BP Sys/Irwin Pulse Ox Last 24 Hr 97.9 F-98.5 F 71-92 18-20 101-129/61-77 HEART: S1S2, RRR LUNGS: Clear ABDOMEN: Soft, non-tender, non-distended, normal BS EXTREMITIES: No edema GENITALIA: Left labia majora edematous, tender, indurated, draining serosanguineous fluid Laboratory Results - last 24 hr 08/20/18 08/20/18 08/20/18 10:04 16:40 22:22 WBC RBC Hgb Hct MCV MCH MCHC RDW Plt Count MPV Sodium Potassium Chloride Carbon Dioxide Anion Gap BUN Creatinine Creat Clearance w eGFR POC Glucometer 375 367 Random Glucose 305 H* Calcium Phosphorus Magnesium 08/21/18 08/21/18 08/21/18 05:48 06:30 06:30 WBC 4.2 RBC 3.87 Hgb 11.9 Hct 34.2 MCV 88.4 MCH 30.6 MCHC 34.6 RDW 13.6 Plt Count 239 MPV 8.9 Sodium 138 Potassium 3.6 Chloride 104 Carbon Dioxide 27 Anion Gap 7 L BUN 10 Creatinine 0.4 L Creat Clearance w eGFR > 60 POC Glucometer 206 Random Glucose 227 H Calcium 8.1 L Phosphorus 4.0 Magnesium 2.1 08/21/18 11:08 WBC RBC Hgb Hct MCV MCH MCHC RDW Plt Count MPV Sodium Potassium Chloride Carbon Dioxide Anion Gap BUN Creatinine Creat Clearance w eGFR POC Glucometer 340 Random Glucose Calcium Phosphorus Magnesium Current Medications Generic Name Dose Route Start Last Admin Trade Name Freq PRN Reason Stop Dose Admin Acetaminophen 650 mg 08/21/18 10:41 08/21/18 11:02 Tylenol - PO 650 mg Q6H PRN Administration PAIN LEVEL 7 - 10 Enoxaparin Sodium 40 mg 08/20/18 10:00 08/21/18 09:47 Lovenox - SQ 40 mg DAILY ISI Administration Gabapentin 300 mg 08/20/18 14:00 08/21/18 06:13 Neurontin - PO 300 mg TID ISI Administration Ceftriaxone Sodium 2 gm/ 100 mls @ 200 mls/hr 08/19/18 12:45 08/21/18 09:44 Dextrose IVPB 200 mls/hr DAILY ISI Administration Protocol Levofloxacin 750 mg in 150 mls @ 100 mls/hr 08/21/18 10:40 08/21/18 10:45 Levaquin 750 Mg Premixed Ivpb - IVPB 08/21/18 12:09 100 mls/hr ONCE ONE Administration Protocol Insulin Aspart 1 vial 08/19/18 22:00 08/20/18 22:24 Novolog Vial Sliding Scale - SQ 8 units HS ISI Administration Protocol Insulin Aspart 1 vial 08/20/18 07:00 08/21/18 08:34 Novolog Vial Sliding Scale - SQ 4 units TIDAC [facility] Administration Protocol Insulin Detemir 25 units 08/21/18 22:00 Levemir Vial SQ HS [facility] Ketorolac Tromethamine 30 mg 08/21/18 12:00 Toradol Injection - IM 08/21/18 12:01 ONCE ONE Levothyroxine Sodium 125 mcg 08/21/18 07:00 08/21/18 06:13 Synthroid - PO 125 mcg DAILY@0700 ISI Administration Nicotine 21 mg 08/20/18 10:00 08/21/18 09:44 Nicoderm Patch - TD 21 mg DAILY ISI Administration Pantoprazole Sodium 40 mg 08/20/18 10:00 08/21/18 09:44 Protonix - PO 40 mg DAILY ISI Administration Sodium Chloride 2 spray 08/19/18 13:40 [place] Nasal [place] - NS BID PRN NASAL CONGESTION ASSESSMENT AND PLAN: This is a 32 year old woman with a history of type 1 DM, depression, anxiety, hypothyroidism who presented to the ED with chest pain, SOB, and dizziness. 1. DKA - Resolved 2. Uncontrolled type 1 DM with peripheral neuropathy - Continue Levemir, Novolog sliding scale, Neurontin 3. E.coli UTI - Ceftriaxone changed to Levaquin 4. Possible labial cyst, cellulitis - Currently on Levaquin for UTI - Awaiting business intern consult 5. Hypothyroidism - Continue Synthroid 6. Depression with anxiety - On no meds 7. History of syphilis - Patient reports being treated 8. Vitamin D deficiency 9. Nicotine dependence - Continue nicotine patch 10. Hypophosphatemia - Improved 11. Hypomagnesemia - Improved
[2018-08-21] MEDS ORDERED: KETOROLAC TROMETHAMINE 30 MG/1 ML VIAL IM ONE (12:00)
--- NOTE | 2018-08-21 14:52 | CON.OBG ---
Consult Reason for Consultation:: Severe vulvar edema and pain. Positive testing for syphilis. Ovarian cyst, right side. - History of Present Illness Chief Complaint: Consultation requested by lpn medical assistant, Dr. Acevedo. Attending Dr. Gonzalez. Patient with multiple medical issues like uncontrolled type 1 diabetes mellitus. Also abdominal pain, urinary tract infection that is being treated. Apparently normal Pap smear 6 months ago. Positive syphilis testing. Swollen, hard and tender vulva that was very tender this morning. Patient responded to Toradol. Better now. She is para 2 with 2 normal sections. No sexual active in couple months. - History Source History Provided By: Patient, Medical Record, Caregiver Limitations to Obtaining History: Other - Past Medical History ...LMP: 08/03/18 ...: No Infectious Disease: Yes: Other Psych: Yes: Anxiety, Depression Endocrine: Yes: Diabetes Mellitus - Past Surgical History Past Surgical History: Yes: - Alcohol/Substance Use Hx Alcohol Use: No - Smoking History Smoking history: Current every day smoker Have you smoked in the past 12 months: Yes Aproximately how many cigarettes per day: 20 - Social History ADL: Independent Home Medications - Allergies Allergies/Adverse Reactions: Allergies Allergy/AdvReac Type Severity Reaction Status Date / Time No Known Allergies Allergy Verified 08/18/18 23:31 - Home Medications Home Medications: Ambulatory Orders Gabapentin 300 mg PO TID 08/19/18 Insulin Glargine,Hum.rec.anlog [Lantus Solostar PEN (NF)] 25 units .ROUTE DAILY 08/19/18 Levothyroxine [Synthroid -] 125 mcg PO DAILY@0700 08/19/18 Pantoprazole Sodium 40 mg PO DAILY 08/19/18 Family Disease History - Family Disease History Family Disease History: Diabetes: Grandparent Physical Exam-DOOR TO DOOR SELLING DISTRIBUTOR Vital Signs: Vital Signs Temperature 98.2 F 08/21/18 09:51 Pulse Rate 90 08/21/18 09:51 Respiratory Rate 18 08/21/18 09:51 Blood Pressure 129/75 08/21/18 09:51 O2 Sat by Pulse Oximetry (%) 94 L 08/21/18 09:00 Constitutional: Yes: Anxious, Mild Distress, Thin Gastrointestinal: Yes: WNL Vaginal Exam: Yes: Other (Vulva bilaterally swollen. No obvious lesion like primary syphilis, herpes infection noted. Nose labia majora indurated, firm to touch and tender. No obvious abscess. No Bartholin's gland cyst. Transvaginal examination very painful and it was deferred.) Adnexa: Not Palpable: Bilateral Labs: CBC, BMP 08/21/18 06:30 08/21/18 06:30 Assessment/Plan IMPRESSION: #1 vulvar edema and tenderness. Improved cyst this morning. No obvious etiology. #2 right ovarian cyst, relatively small and asymptomatic, diagnosed on CAT scan. #3 multiple medical problems including urinary tract infection, uncontrolled diabetes, anxiety. #3 early syphilis, unspecified. Positive testing. PLAN: Discharge home on antibiotics, boric acid compresses, soaks, possible Lotrisone , possible Xylocaine Viscous. Follow-up transvaginal sonogram as outpatient for the right ovarian cyst. Case discussed and patient examined with Dr. Harjinder Carrasco, infectious disease. Syphilis treatment and proper follow-up reviewed. ID will continue. Medical issues deferred to the Department of medicine. All fully discussed with patient.
--- NOTE | 2018-08-21 15:04 | PN ---
Progress Note (short form) - Note Progress Note: ID Consult dictated UTI ? Labial abscess S/P DKA Hx Syphilis (Treated ) Levaquin for UTI CORPORATE LOGISTICS MANAGER evaluation/ follow up RPR, GC / Chlamydia screen
[2018-08-21] MEDS ORDERED: IBUPROFEN 400 MG TABLET (FP) PO PRN (15:33)
--- NOTE | 2018-08-21 15:36 | PN ---
Physical Exam: SUBJECTIVE: Patient seen and examined at bed side this morning. Complaining of pain in the vaginal area. States the pain is worse than yesterday. Serosanguinous fluids from a small abrasion in the genitalis. Otherwise, ROS is negative. Denies chest pain, sob, cough, palpitation, abdominal pain, nausea or vomiting. No acute overnight events. As per RN, patient walked out of the floor, smoked and came back despite telling her not to. This afternoon, patient was crying and stated she has personal issues that is bothering her. OBJECTIVE: Vital Signs Period Temp Pulse Resp BP Sys/Irwin Pulse Ox Last 24 Hr 97.9 F-98.5 F 71-90 18-18 101-129/61-75 94 GENERAL: Young female, sitting in bed, eating lunch, in no acute distress. HEAD: Normal with no signs of trauma. EYES: EOM intact, no pallor or icterus. ENT: Ears normal. Moist mucous membranes. NECK: Supple. LUNGS: Breath sounds equal, clear to auscultation bilaterally, no wheezes, no crackles, no accessory muscle use. HEART: Tachycardic, Regular rate and rhythm, S1, S2 without murmur. ABDOMEN: Soft, nontender, no organomegaly. GENITAL: Swollen labia major +, no vaginal discharge, tender to touch, has an area of hard area in labia majora which is tender. EXTREMITIES: 2+ pulses, warm, well-perfused, no edema. NEUROLOGICAL: No facial droop. Normal speech, gait not observed. PSYCH: Normal mood, normal affect. SKIN: Warm, dry, normal turgor, no rashes or lesions noted Laboratory Results - last 24 hr 08/20/18 08/20/18 08/21/18 16:40 22:22 05:48 WBC RBC Hgb Hct MCV MCH MCHC RDW Plt Count MPV Sodium Potassium Chloride Carbon Dioxide Anion Gap BUN Creatinine Creat Clearance w eGFR POC Glucometer 375 367 206 Random Glucose Calcium Phosphorus Magnesium C. trachomatis (JORDAN) HIV 1&2 Antibody Screen HIV P24 Antigen N. gonorrhoeae (JORDAN) 08/21/18 08/21/18 08/21/18 06:30 06:30 06:30 WBC 4.2 RBC 3.87 Hgb 11.9 Hct 34.2 MCV 88.4 MCH 30.6 MCHC 34.6 RDW 13.6 Plt Count 239 MPV 8.9 Sodium 138 Potassium 3.6 Chloride 104 Carbon Dioxide 27 Anion Gap 7 L BUN 10 Creatinine 0.4 L Creat Clearance w eGFR > 60 POC Glucometer Random Glucose 227 H Calcium 8.1 L Phosphorus 4.0 Magnesium 2.1 C. trachomatis (JORDAN) Cancelled HIV 1&2 Antibody Screen HIV P24 Antigen N. gonorrhoeae (JORDAN) Cancelled 08/21/18 08/21/18 11:08 11:35 WBC RBC Hgb Hct MCV MCH MCHC RDW Plt Count MPV Sodium Potassium Chloride Carbon Dioxide Anion Gap BUN Creatinine Creat Clearance w eGFR POC Glucometer 340 Random Glucose Calcium Phosphorus Magnesium C. trachomatis (JORDAN) HIV 1&2 Antibody Screen Negative HIV P24 Antigen Negative N. gonorrhoeae (JORDAN) Active Medications Generic Name Dose Route Start Last Admin Trade Name Freq PRN Reason Stop Dose Admin Acetaminophen 650 mg 08/21/18 10:41 08/21/18 11:02 Tylenol - PO 650 mg Q6H PRN Administration PAIN LEVEL 7 - 10 Enoxaparin Sodium 40 mg 08/20/18 10:00 08/21/18 09:47 Lovenox - SQ 40 mg DAILY ISI Administration Gabapentin 300 mg 08/20/18 14:00 08/21/18 14:19 Neurontin - PO 300 mg TID ISI Administration Ibuprofen 400 mg 08/21/18 15:33 Motrin - PO 08/23/18 15:32 Q6H PRN FEVER Insulin Aspart 1 vial 08/19/18 22:00 08/20/18 22:24 Novolog Vial Sliding Scale - SQ 8 units HS ISI Administration Protocol Insulin Aspart 1 vial 08/21/18 13:08 Novolog Vial Sliding Scale - SQ TIDAC [facility] Protocol Insulin Detemir 28 units 08/21/18 22:00 Levemir Vial SQ HS ISI Levofloxacin 500 mg 08/22/18 10:00 Levaquin - PO DAILY ISI Levothyroxine Sodium 125 mcg 08/21/18 07:00 08/21/18 06:13 Synthroid - PO 125 mcg DAILY@0700 ISI Administration Nicotine 21 mg 08/20/18 10:00 08/21/18 09:44 Nicoderm Patch - TD 21 mg DAILY ISI Administration Pantoprazole Sodium 40 mg 08/20/18 10:00 08/21/18 09:44 Protonix - PO 40 mg DAILY ISI Administration Sodium Chloride 2 spray 08/19/18 13:40 [place] Nasal [place] - NS BID PRN NASAL CONGESTION ASSESSMENT/PLAN: Renal ultrasound 08/19/18: Tiny calcific densities in the anterior myometrium. Uterus and ovaries normal Abdominal/Pelvis CT: 3.6 cm right ovarian cyst. Uterus is retroverted. Thick walled urinary bladder. Cystitis cannot be excluded. No acute pathology. Pelvic sono is recommended ASSESSMENT/PLAN: Patient is a 32 year old Female with PMHx of DM, Depression, Anxiety, Thyroid disorder (possibly hyperthyroidism) presents with Chest pain, Dizziness and difficulty breathing x 2 days. # Diabetic Ketoacidosis likely due to non compliance to medication- now resolved Levemir increased to 28 Units sq HS ISS, watch for hypoglycemic episodes. Diabetic diet Needs close f/up as outpatient Appreciate Dr. Matamoros's recommendations. # UTI UC growing E.coli. Resistant to Ceftriaxone and sensitive to IV Levaquin. Started on PO Levaquin 500 mg daily from tomorrow. # Swollen vulva ? abscess Could have been aggravated by recent shaving of the area. No vaginal discharge. Will r/o STD's. Chlamydia/Gonorrhoe and HSV PCR pending. HIV and Hep panel pending. Patient seen by Dr. Casanova who recommends cold/warm compress, xylocaine TP Appreciate Dr. Carrasco's recommendations. # Hypothyroidism Continue Levothyroxine 125 mcg at home (confirmed with pharmacy) TSH 0.17, Free T4 0.70. Plan is to repeat Tft's once her acute illness resolves F/up with Cupola Hoist Operator as outpatient. # Anxiety/Depression disorder Not on any meds # Chest pain and shortness of breath- resolved # Hx of Syhillis RPR 1:64 and T. pallidum reactive 06/18. Patient states she was treated with antibiotics. # Diabetic neuropathy Takes Gapapentin 300 mg PO TID at home and continue. # Low Vit D Takes Vit D 5000 U every week. # Active smoker: Continue Nicotine Patch 21 mg TD daily # FEN Not on IV fluids. Electrolytes WNL. Diabetic diet # Prophylaxis For DVT: On Lovenox 40mg sq daily For GI: On IV Protonix 40mg Daily # Code Status: Full Code Illness, Investigation and Plan of care explained to the patient. She verbalized understanding. Case discussed with Dr. Lopez. Problem List - Problems (1) Early syphilis, unspecified Code(s): A51.9 - EARLY SYPHILIS, UNSPECIFIED (2) Ovarian cyst Code(s): N83.209 - UNSPECIFIED OVARIAN CYST, UNSPECIFIED SIDE Qualifiers: Laterality: right Qualified Code(s): N83.201 - Unspecified ovarian cyst, right side (3) Hyperglycemia Code(s): R73.9 - HYPERGLYCEMIA, UNSPECIFIED (4) New onset type 1 diabetes mellitus, uncontrolled Code(s): E10.65 - TYPE 1 DIABETES MELLITUS WITH HYPERGLYCEMIA Visit type - Emergency Visit Emergency Visit: Yes ED Registration Date: 08/19/18 Care time: The patient presented to the Emergency Department on the above date and was hospitalized for further evaluation of their emergent condition. - New Patient This patient is new to me today: No - Critical Care Critical Care patient: No - Discharge Referral Referred to [facility] Med [facility] No
--- NOTE | 2018-08-21 16:20 | CONS ---
INFECTIOUS DISEASE CONSULTATION DATE OF CONSULTATION: DATE OF DICTATION: 08/21/2018 HISTORY OF PRESENT ILLNESS: This is a 32-year-old female evaluated for a urinary tract infection. The patient is a 32-year-old diabetic female. She was admitted to the hospital with complaints of polydipsia and polyuria. She was found to have an elevated blood sugar and was diagnosed with diabetic ketoacidosis. Her hospital course was complicated by a positive urine culture for E. coli and development of bilateral labial tenderness and swelling. She was seen in consultation by SECONDARY SCHOOL TEACHER LIBRARIAN and was noted to have vulvar edema and tenderness consistent with a cyst. Recommendation was to discharge home on antibiotics, boric acid compresses, and warm soaks. At the present time she is awake and alert. She has no focal complaint. Of note, the patient had a positive syphilis serology in June 2017 for which she reports receiving 3 intramuscular [facility]. In addition, her partner was treated. An HIV test done this admission was negative. LABORATORY DATA: White count on admission 15, presently 4.2, creatinine 0.4. Urinalysis 20 white cells. PHYSICAL EXAMINATION: General: She is awake and alert not acutely toxic appearing. Vital Signs: Temperature 98.2, blood pressure 129/75, pulse 90 and regular, respirations 18 per minute. HEENT: Sclerae anicteric. Heart: Sounds S1, S2. Lungs: Clear. Abdomen: Soft, nontender. Extremities: Negative for edema. Genitalia: Examination was performed by the plant hr manager and I was in attendance. She was noted to have tender swelling of the labia bilaterally. No erythema or cutaneous lesions noted and no discharge. IMPRESSION: 1. Escherichia coli urinary tract infection. 2. Vulvar edema and tenderness without absence of abscess per Gynecology. 3. History of positive syphilis serology. PLAN: Continue Levaquin for treatment of urinary tract infection, complete 7 day course. Repeat RPR. Obtain urine for chlamydia and gonorrhea. Treatment of labial tenderness and edema by Gynecology. Thank you for the kind referral. LULI HELMS M.D. CHELSEY/[id number]
[2018-08-21] MEDS ORDERED: LIDOCAINE HCL 2% JELLY 10 ML CARTRIDGE UR ONE (16:30)
[2018-08-21] MEDS ORDERED: INSULIN (NOVOLOG) ASPART 100 UNITS/ML 10ML VIAL SQ ONE (20:13)
[2018-08-21] MEDS ORDERED: INSULIN (LEVEMIR) 100 UNITS/ML UNITS SQ SCH ×2 (22:00)
[2018-08-22] MEDS: GABAPENTIN 300 MG CAPSULE (FP) PO SCH ×2 (06:02→14:36)
[2018-08-22 08:12] LABS: HEMOGLOBIN 11.6 GM/dL (10.7-15.3); MCH 29.9 pg (25.7-33.7); MCHC 33.9 g/dl (32.0-36.0); MEAN CELL VOLUME 88.1 fl (80-96); MEAN PLT VOLUME 8.4 fl (7.5-11.1); PLATELET COUNT 269 K/MM3 (134-434); RBC 3.86 M/mm3 (3.60-5.2); RDW 13.7 % (11.6-15.6); WHITE BLOOD COUNT 3.8 K/mm3 (4.0-10.0)
[2018-08-22] MEDS ORDERED: INSULIN (NOVOLOG) ASPART 100 UNITS/ML 10ML VIAL ONE (08:23)
[2018-08-22] MEDS: INSULIN SLIDING SCALE (NOVOLOG) 1 VIAL SQ SCH ×2 (08:26→12:19)
[2018-08-22 08:38] LABS: ANION GAP 6 MMOL/L (8-16); BLOOD UREA NITROGEN 14 mg/dL (7-18); CALCIUM 8.5 mg/dL (8.5-10.1); CHLORIDE 106 mmol/L (98-107); CO2 28 mmol/L (21-32); CREATININE 0.4 mg/dL (0.55-1.3); GLUCOSE,RANDOM 140 mg/dL (74-106); MAGNESIUM 2.1 mg/dL (1.8-2.4); PHOSPHOROUS 4.1 mg/dL (2.5-4.9); SODIUM 140 mmol/L (136-145)
[2018-08-22 09:34] VITALS: BP 108/64; PULSE 73; TEMP 97.7
[2018-08-22] MEDS: ENOXAPARIN NA (PORCINE) 40 MG/0.4 ML DISP.SYRIN SQ SCH (09:53)
[2018-08-22] MEDS: PANTOPRAZOLE 40 MG TABLET (FP) PO SCH (09:53)
[2018-08-22] MEDS: NICOTINE 21 MG/24 HOURS TOPICAL PATCH TD SCH (09:54)
[2018-08-22 12:24] LABS: RPR REACTIVE 1:4 (NONREACTIVE)
[2018-08-22 12:25] LABS: TREPONEMA ANTIBODY PREVIOUSLY REACTIVE (NONREACTIVE)
[2018-08-22] MEDS ORDERED: LIDOCAINE HCL 2% JELLY 10 ML CARTRIDGE UR ONE (12:33)
--- NOTE | 2018-08-22 12:54 | PN ---
Progress Note (short form) - Note Progress Note: No complaints Eager to go home Vital Signs Period Temp Pulse Resp BP Sys/Irwin Pulse Ox Last 24 Hr 97.7 F-98.5 F 67-88 20-20 93-121/60-84 PE: AOx3 Neck: Supple, No JVD HEENT: EOMI Lungs: CTA CVS: S1S2 Abd: Benigm EXt: No edema Neuro: No focal deficit CMP Sodium 140 mmol/L (136-145) 08/22/18 07:30 Potassium 4.0 mmol/L (3.5-5.1) 08/22/18 07:30 Chloride 106 mmol/L (98-107) 08/22/18 07:30 Carbon Dioxide 28 mmol/L (21-32) 08/22/18 07:30 Anion Gap 6 MMOL/L (8-16) L 08/22/18 07:30 BUN 14 mg/dL (7-18) 08/22/18 07:30 Creatinine 0.4 mg/dL (0.55-1.3) L 08/22/18 07:30 Creat Clearance w eGFR > 60 (>60) 08/22/18 07:30 POC Glucometer 223 UNITS (80-120) 08/22/18 12:18 Random Glucose 140 mg/dL (74-106) H 08/22/18 07:30 Calcium 8.5 mg/dL (8.5-10.1) 08/22/18 07:30 Phosphorus 4.1 mg/dL (2.5-4.9) 08/22/18 07:30 Magnesium 2.1 mg/dL (1.8-2.4) 08/22/18 07:30 Total Bilirubin 0.8 mg/dL (0.2-1) 08/20/18 10:04 AST 11 U/L (15-37) L 08/20/18 10:04 ALT 16 U/L (13-61) 08/20/18 10:04 Alkaline Phosphatase 64 U/L (45-117) 08/20/18 10:04 Creatine Kinase 86 IU/L (26-192) 08/19/18 05:01 Troponin I < 0.02 ng/ml (0.00-0.05) 08/19/18 05:01 Total Protein 5.6 g/dl (6.4-8.2) L 08/20/18 10:04 Albumin 2.8 g/dl (3.4-5.0) L 08/20/18 10:04 TSH 0.17 uIU/ml (0.358-3.74) L 08/19/18 05:01 Free T4 0.70 ng/dl (0.76-1.46) L 08/19/18 09:35 Serum , Qual Negative 08/19/18 00:19 Current Medications Generic Name Dose Route Start Last Admin Trade Name Freq PRN Reason Stop Dose Admin Acetaminophen 650 mg 08/21/18 10:41 08/21/18 11:02 Tylenol - PO 650 mg Q6H PRN Administration PAIN LEVEL 7 - 10 Enoxaparin Sodium 40 mg 08/20/18 10:00 08/22/18 09:53 Lovenox - SQ 40 mg DAILY ISI Administration Gabapentin 300 mg 08/20/18 14:00 08/22/18 06:02 Neurontin - PO 300 mg TID ISI Administration Ibuprofen 400 mg 08/21/18 15:33 Motrin - PO 08/23/18 15:32 Q6H PRN FEVER Insulin Aspart 1 vial 08/19/18 22:00 08/21/18 23:31 Novolog Vial Sliding Scale - SQ Not Given HS ISI Protocol Insulin Aspart 1 vial 08/21/18 13:08 08/22/18 12:19 Novolog Vial Sliding Scale - SQ 6 units TIDAC ISI Administration Protocol Insulin Detemir 28 units 08/21/18 22:00 08/21/18 21:17 Levemir Vial SQ 28 units HS ISI Administration Levofloxacin 500 mg 08/22/18 10:00 08/22/18 09:53 Levaquin - PO 500 mg DAILY ISI Administration Nicotine 21 mg 08/20/18 10:00 08/22/18 09:54 Nicoderm Patch - TD Not Given DAILY ISI Pantoprazole Sodium 40 mg 08/20/18 10:00 08/22/18 09:53 Protonix - PO 40 mg DAILY ISI Administration Sodium Chloride 2 spray 08/19/18 13:40 [place] Nasal [place] - NS BID PRN NASAL CONGESTION AP; DKA: Resolved DM ? Thyroid disorder/? Sick euthyroid: Took LT4 for about 3 months and stopped about 6 weeks ago as per pt. This confirmed today again by patient. The inhospital TSH of 0.17 with FT4 0.65 is not possible if she really needed LT4 125mcg daily and was taking it until 6 weeks ago. BGM QACHS and 3 AM Levemir 28 units daily, at HS NOvolog SS coverage Electrolyte replacement as necessary D/C Levothyroxine for now Will need to repeat TFT once acute illness is resolved. Discussed with pt to get TFT done by his PCP within the next 2 week and f/u with me if abnormal. Further management depending on the results. It the TFT pattern of low TSH and low FT4 remains, will need to get MRI of Pituitary to r/o Central Hypothyroidism Will f/u
--- NOTE | 2018-08-22 13:08 | DS ---
Physical Exam: SUBJECTIVE: Patient seen and examined at bed side this morning. States she feels much better. Swelling in the labia has improved and pain is decreased. Serosanguinous fluids from a small abrasion from the labia. Otherwise, ROS is negative. Denies chest pain, sob, cough, palpitation, abdominal pain, nausea or vomiting. No acute overnight events. OBJECTIVE: Vital Signs Period Temp Pulse Resp BP Sys/Irwin Pulse Ox Last 24 Hr 97.7 F-98.5 F 67-88 20-20 93-121/60-84 PHYSICAL EXAM GENERAL: Young female, sitting in bed, awake, alert, oriented in no acute distress. HEAD: Normal with no signs of trauma. EYES: EOM intact, no pallor or icterus. ENT: Ears normal. Moist mucous membranes. NECK: Supple. LUNGS: Breath sounds equal, clear to auscultation bilaterally, no wheezes, no crackles, no accessory muscle use. HEART: Tachycardic, Regular rate and rhythm, S1, S2 without murmur. ABDOMEN: Soft, nontender, no organomegaly. 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 EXTREMITIES: 2+ pulses, warm, well-perfused, no edema. NEUROLOGICAL: No facial droop. Normal speech, gait not observed. PSYCH: Normal mood, normal affect. SKIN: Warm, dry, normal turgor, no rashes or lesions noted LABS Laboratory Results - last 24 hr 08/21/18 08/21/18 08/21/18 06:30 16:24 20:07 WBC RBC Hgb Hct MCV MCH MCHC RDW Plt Count MPV Sodium Potassium Chloride Carbon Dioxide Anion Gap BUN Creatinine Creat Clearance w eGFR POC Glucometer 424 432 Random Glucose Calcium Phosphorus Magnesium RPR Titer T.pallidum Ab (MHA) C. trachomatis (JORDAN) Cancelled N. gonorrhoeae (JORDAN) Cancelled 08/22/18 08/22/18 08/22/18 06:05 07:30 07:30 WBC 3.8 L RBC 3.86 Hgb 11.6 Hct 34.0 MCV 88.1 MCH 29.9 MCHC 33.9 RDW 13.7 Plt Count 269 MPV 8.4 Sodium Potassium Chloride Carbon Dioxide Anion Gap BUN Creatinine Creat Clearance w eGFR POC Glucometer 183 Random Glucose Calcium Phosphorus Magnesium RPR Titer Reactive 1:4 H D T.pallidum Ab (MHA) Previously reactive C. trachomatis (JORDAN) N. gonorrhoeae (JORDAN) 08/22/18 08/22/18 07:30 12:18 WBC RBC Hgb Hct MCV MCH MCHC RDW Plt Count MPV Sodium 140 Potassium 4.0 Chloride 106 Carbon Dioxide 28 Anion Gap 6 L BUN 14 Creatinine 0.4 L Creat Clearance w eGFR > 60 POC Glucometer 223 Random Glucose 140 H Calcium 8.5 Phosphorus 4.1 Magnesium 2.1 RPR Titer T.pallidum Ab (MHA) C. trachomatis (JORDAN) N. gonorrhoeae (JORDAN) Renal ultrasound 08/19/18: Tiny calcific densities in the anterior myometrium. Uterus and ovaries normal Abdominal/Pelvis CT: 3.6 cm right ovarian cyst. Uterus is retroverted. Thick walled urinary bladder. Cystitis cannot be excluded. No acute pathology. Pelvic sono is recommended. Microbiology 08/19/18 17:00 Blood - Peripheral Venous Blood Culture - Preliminary NO GROWTH OBTAINED AFTER 72 HOURS, INCUBATION TO CONTINUE FOR 2 DAYS. 08/19/18 20:20 Blood - Peripheral Venous Blood Culture - Preliminary NO GROWTH OBTAINED AFTER 48 HOURS, INCUBATION TO CONTINUE FOR 3 DAYS. 08/19/18 15:15 Urine - Urine Clean Catch Urine Culture - Final Escherichia Coli HOSPITAL COURSE: Date of Admission:08/19/18 Date of Discharge: 08/22/18 Patient is a 32 year old Female with PMHx of DM, Depression, Anxiety, Thyroid disorder (possibly hyperthyroidism) presents with Chest pain, Dizziness and difficulty breathing x 2 days. On admission, patient's BG was 345, AG was 17, acetone ++, was diagnosed to be in DKA. Was admitted in ICU, DKA protocol was followed and DKA resolved within 24 hours. Patient was then transferred to the floors. Endocrinology was consulted Levemir was increased from 26 to 28 Units with good blood sugar control. Patient also complained of urinary symptoms, was given IV Ceftriaxone however the urine culture/sensitivity showed resistant to Ceftriaxone and it was switched to Levaquin (sensitive) and sent home on 5 more days of Levaquin. Also reported to have swelling in the labia which was tender. Was diagnosed to have labial cysts vs abscess (since a small amount of serosanguinous fluids were seen from a small abrasion). Surtass Analyst and ID was consulted who recommended proper hygiene, warm compress, continue abx, xylocaine application. After the treatment, it improved, swelling got better and pain was controlled. Patient's RPR was positive 1:64 in 2017 which was repeated and the titre was 1: 4 this time. ID recommended to repeat it after 3 months and to f/up. HIV test was negative. Chlamydia/Gonorrhea, Hepatitis panel pending. Patient made aware that the results are pending. Patient has a h/o hypothyroidism. TSH and T4 both were low. Endocrinology recommended to repeat TFT's once her illness resolved. Recommended to f/up with Dermatology Nurse Practitioner as outpatient. Patient was asked to f/up as outpatient for the right ovarian cyst. Recommended patient to stop smoking. Plan of care explained to the patient. She verbalized understanding. Minutes to complete discharge: 45 Discharge Summary Reason For Visit: DIABETIC KETOACIDOSIS Current Active Problems DKA (diabetic ketoacidosis) (Acute) Early syphilis, unspecified (Acute) Ovarian cyst (Acute) Condition: Improved - Instructions Diet, Activity, Other Instructions: You were admitted because of Diabetic Ketoacidosis. Also found out that you have Urinary tract infection ( E. coli) and treated with IV antibiotics now switched to per oral antibiotics. Please continue taking Levofloxacin 500 mg x 5 more days. Please follow up with Infectious Disease physician (Dr. Carrasco) as outpatient. For the abscess in the labia, please make sure you keep it clean, avoid scratching with long nails and avoid shaving. F/up with Surtass Analyst (Dr. Johnson) in a week. For Diabetes, you were seen by Dermatology Nurse Practitioner (Dr. Matamoros), adjusted your long acting Insulin (Levemir 28 Units). You were also tested for HIV which is negative. However, the results for other tests are pending: Chlamydia/Gonorrhoea and Hepatitis. RPR and T pallidum test was repeated. Please make sure you repeat the blood tests in 3 months. Please f/up with Dr. Carrasco as outpatient. Please make sure you take your Insulin and all other medications daily. Follow diabetic diet. Check finger stick glucose, watch for hypoglycemic episodes. If you develop any new symptoms or your current symptoms are getting worse, please call 911 and come to the Emergency Department immediately. Referrals: Harjinder Carrasco MD [Staff Physician] - 1 Week Alejandro Casanova MD [Staff Physician] - 1 Week () Fernando Estevez MD [Primary Care Provider] - Cristiane Matamoros MD [Staff Physician] - 2 Weeks Disposition: HOME - Home Medications Comprehensive Discharge Medication List: Ambulatory Orders Gabapentin 300 mg PO TID 08/19/18 Levothyroxine [Synthroid -] 125 mcg PO DAILY@0700 08/19/18 Pantoprazole Sodium 40 mg PO DAILY 08/19/18 Insulin (Levemir) [Levemir Vial] 28 units SQ HS #1 vial 08/22/18 Insulin Sliding Scale [Novolog Vial Sliding Scale -] 1 vial SQ TIDAC units Nicotine Patch [Nicoderm Patch -] 21 mg TD DAILY patch 08/22/18 levoFLOXacin [Levaquin -] 500 mg PO DAILY 5 Days #5 tablet 08/22/18 Problem List - Problems (1) Early syphilis, unspecified Code(s): A51.9 - EARLY SYPHILIS, UNSPECIFIED (2) Ovarian cyst Code(s): N83.209 - UNSPECIFIED OVARIAN CYST, UNSPECIFIED SIDE Qualifiers: Laterality: right Qualified Code(s): N83.201 - Unspecified ovarian cyst, right side (3) Hyperglycemia Code(s): R73.9 - HYPERGLYCEMIA, UNSPECIFIED (4) New onset type 1 diabetes mellitus, uncontrolled Code(s): E10.65 - TYPE 1 DIABETES MELLITUS WITH HYPERGLYCEMIA This patient is new to me today: No Emergency Visit: Yes ED Registration Date: 08/19/18 Care time: The patient presented to the Emergency Department on the above date and was hospitalized for further evaluation of their emergent condition. Critical Care patient: No - Discharge Referral Referred to [facility] Med [facility] No
[2018-08-22] MEDS ORDERED: LIDOCAINE HCL 2% JELLY (30 ML/TUBE) TP ONE (14:00)
--- NOTE | 2018-08-22 14:14 | PN ---
Teaching Attending Note Name of Resident: Nora Acevedo ATTENDING PHYSICIAN STATEMENT I saw and evaluated the patient. I reviewed the resident's note and discussed the case with the resident. I agree with the resident's findings and plan as documented. SUBJECTIVE: OBJECTIVE: Vital Signs Period Temp Pulse Resp BP Sys/Irwin Pulse Ox Last 24 Hr 97.7 F-98.5 F 67-88 20-20 93-121/60-84 Laboratory Results - last 24 hr 08/21/18 08/21/18 08/21/18 06:30 16:24 20:07 WBC RBC Hgb Hct MCV MCH MCHC RDW Plt Count MPV Sodium Potassium Chloride Carbon Dioxide Anion Gap BUN Creatinine Creat Clearance w eGFR POC Glucometer 424 432 Random Glucose Calcium Phosphorus Magnesium RPR Titer T.pallidum Ab (MHA) C. trachomatis (JORDAN) Cancelled N. gonorrhoeae (JORDAN) Cancelled 08/22/18 08/22/18 08/22/18 06:05 07:30 07:30 WBC 3.8 L RBC 3.86 Hgb 11.6 Hct 34.0 MCV 88.1 MCH 29.9 MCHC 33.9 RDW 13.7 Plt Count 269 MPV 8.4 Sodium Potassium Chloride Carbon Dioxide Anion Gap BUN Creatinine Creat Clearance w eGFR POC Glucometer 183 Random Glucose Calcium Phosphorus Magnesium RPR Titer Reactive 1:4 H D T.pallidum Ab (MHA) Previously reactive C. trachomatis (JORDAN) N. gonorrhoeae (JORDAN) 08/22/18 08/22/18 07:30 12:18 WBC RBC Hgb Hct MCV MCH MCHC RDW Plt Count MPV Sodium 140 Potassium 4.0 Chloride 106 Carbon Dioxide 28 Anion Gap 6 L BUN 14 Creatinine 0.4 L Creat Clearance w eGFR > 60 POC Glucometer 223 Random Glucose 140 H Calcium 8.5 Phosphorus 4.1 Magnesium 2.1 RPR Titer T.pallidum Ab (MHA) C. trachomatis (JORDAN) N. gonorrhoeae (JORDAN) Current Medications Generic Name Dose Route Start Last Admin Trade Name Freq PRN Reason Stop Dose Admin Acetaminophen 650 mg 08/21/18 10:41 08/21/18 11:02 Tylenol - PO 650 mg Q6H PRN Administration PAIN LEVEL 7 - 10 Enoxaparin Sodium 40 mg 08/20/18 10:00 08/22/18 09:53 Lovenox - SQ 40 mg DAILY ISI Administration Gabapentin 300 mg 08/20/18 14:00 08/22/18 06:02 Neurontin - PO 300 mg TID ISI Administration Ibuprofen 400 mg 08/21/18 15:33 Motrin - PO 08/23/18 15:32 Q6H PRN FEVER Insulin Aspart 1 vial 08/19/18 22:00 08/21/18 23:31 Novolog Vial Sliding Scale - SQ Not Given HS ISI Protocol Insulin Aspart 1 vial 08/21/18 13:08 08/22/18 12:19 Novolog Vial Sliding Scale - SQ 6 units TIDAC ISI Administration Protocol Insulin Detemir 28 units 08/21/18 22:00 08/21/18 21:17 Levemir Vial SQ 28 units HS ISI Administration Levofloxacin 500 mg 08/22/18 10:00 08/22/18 09:53 Levaquin - PO 500 mg DAILY ISI Administration Nicotine 21 mg 08/20/18 10:00 08/22/18 09:54 Nicoderm Patch - TD Not Given DAILY ISI Pantoprazole Sodium 40 mg 08/20/18 10:00 08/22/18 09:53 Protonix - PO 40 mg DAILY ISI Administration Sodium Chloride 2 spray 08/19/18 13:40 [place] Nasal [place] - NS BID PRN NASAL CONGESTION ASSESSMENT AND PLAN:
[2018-08-23 03:16] LABS: HEP.C VIRUS AB <0.1 s/co ratio (0.0-0.9)
== END 2018-08-22 14:46 | disposition home or self-care (01) | DRG 420 ==
LOC: JER 23:20 → JERBED 08-19 01:55 → JICU 08-19 08:36 → J5S 08-19 15:29
PROVIDERS: ADMIT Internal Medicine; ATTEND Internal Medicine
DX: E10.10 Type 1 diabetes mellitus with ketoacidosis without coma (principal); N39.0 Urinary tract infection, site not specified; E55.9 Vitamin D deficiency, unspecified; E83.39 Other disorders of phosphorus metabolism; E83.42 Hypomagnesemia; F32.9 Major depressive disorder, single episode, unspecified; F41.9 Anxiety disorder, unspecified; Z91.14 Patient's other noncompliance with medication regimen; Z79.4 Long term (current) use of insulin; F43.10 Post-traumatic stress disorder, unspecified; R07.9 Chest pain, unspecified; E10.40 Type 1 diabetes mellitus with diabetic neuropathy, unspecified; N83.201 Unspecified ovarian cyst, right side; D72.829 Elevated white blood cell count, unspecified; E86.0 Dehydration; E86.9 Volume depletion, unspecified; F17.210 Nicotine dependence, cigarettes, uncomplicated; B96.20 Unspecified Escherichia coli [E. coli] as the cause of diseases classified elsewhere; A51.9 Early syphilis, unspecified; N90.89 Other specified noninflammatory disorders of vulva and perineum; E05.90 Thyrotoxicosis, unspecified without thyrotoxic crisis or storm
CPT/HCPCS: 36415; 71046-TC-FY; 74176-TC; 76856-TC; 80048; 80053; 80074; 81003; 81015; 82009; 82550; 82803; 82962; 83735; 84100; 84439; 84443; 84484; 84703; 85025; 85027; 86593; 86780; 87040; 87086; 87186; 87389; 87491; 87529; 87591; 87661; 90688; 93005; 93010; 99285-25; G0008; J0131; J7030; Q0162

== ENCOUNTER 2018-10-18 12:25 | Inpatient (IN) | payer OTHER ==
--- NOTE | 2018-10-18 12:35 | PDOC ---
History of Present Illness - General Stated Complaint: HYPERGLYCEMIA Time Seen by Provider: 10/18/18 12:35 - History of Present Illness Initial Comments: 33 year old Female with PMH of IDDM, Depression, Anxiety, Thyroid disorder presenting with nausea, vomiting, abdominal pain in the setting of high blood sugars 2/2 lack of long acting insulin for the past three days. States that she has been taking her short acting and was measuring sugars in the 200s yesterday. This morning she woke up with nausea, vomiting, abdominal pain, and generally feeling unwell. Denies any fevers, cough, SOB, or other symptoms. 10/18/18 13:14 Past History - Past Medical History Allergies/Adverse Reactions: Allergies Allergy/AdvReac Type Severity Reaction Status Date / Time No Known Allergies Allergy Verified 08/18/18 23:31 Home Medications: Ambulatory Orders Gabapentin 300 mg PO TID 08/19/18 Levothyroxine [Synthroid -] 125 mcg PO DAILY@0700 08/19/18 Pantoprazole Sodium 40 mg PO DAILY 08/19/18 Insulin (Levemir) [Levemir Vial] 28 units SQ HS #1 vial 08/22/18 Insulin Sliding Scale [Novolog Vial Sliding Scale -] 1 vial SQ TIDAC units Nicotine Patch [Nicoderm Patch -] 21 mg TD DAILY patch 08/22/18 levoFLOXacin [Levaquin -] 500 mg PO DAILY 5 Days #5 tablet 08/22/18 Anemia: Yes Asthma: No Cancer: No Cardiac Disorders: No COPD: No Diabetes: Yes HTN: No Seizures: No Thyroid Disease: Yes - Immunization History Immunization Up to Date: Yes - Suicide/Smoking/Psychosocial Hx Smoking History: Current every day smoker Have you smoked in the past 12 months: Yes Number of Cigarettes Smoked Daily: 20 Cigars Per Day: 3 'Breaking Loose' booklet given: 08/19/18 Hx Alcohol Use: No Drug/Substance Use Hx: No Substance Use Type: None Hx Substance Use Treatment: No Review of Systems - Review of Systems Constitutional: No: Chills, Diaphoresis, Fever, Loss of Appetite HEENTM: No: Blurred Vision, Tearing, Recent change in vision Respiratory: No: Cough, Shortness of Breath, SOB with Exertion, SOB at Rest Cardiac (ROS): No: Chest Pain, Edema, Irregular Heart Rate, Lightheadedness ABD/GI: Yes: Nausea, Vomiting, Abdominal cramping : No: Burning, Dysuria, Discharge Musculoskeletal: No: Back Pain, Joint Pain Integumentary: No: Bruising, Rash, Sweating Neurological: No: Headache, Numbness, Paresthesia Psychiatric: Yes: Anxiety, Depression Hematologic/Lymphatic: No: Anemia, Blood Clots, Easy Bleeding *Physical Exam - Physical Exam General Appearance: Yes: Nourished, Appropriately Dressed, Apparent Distress, Moderate Distress Neck: positive: Trachea midline, Normal Thyroid, Supple. negative: Tender, Rigid Respiratory/Chest: positive: Lungs Clear, Normal Breath Sounds, Rapid RR. negative: Chest Tender, Respiratory Distress, Accessory Muscle Use Cardiovascular: positive: Regular Rhythm, Regular Rate Gastrointestinal/Abdominal: positive: Normal Bowel Sounds, Flat, Soft. negative : Tender Lymphatic: negative: Adenopathy, Tenderness Musculoskeletal: positive: Normal Inspection. negative: Decreased Range of Motion Extremity: positive: Normal Capillary Refill, Normal Inspection, Normal Range of Motion. negative: Tender Integumentary: positive: Normal Color, Dry, Warm Neurologic: positive: Fully Oriented, Alert, Normal Mood/Affect, Normal Response , Motor Strength 5/5 ED Treatment Course - LABORATORY CBC & Chemistry Diagram: 10/18/18 13:06 10/18/18 18:00 Medical Decision Making - Medical Decision Making 33 year old with sugar at home measuring the 200s over the last few days in the setting of lack of long acting insulin presenting with nausea , vomiting, and abdominal pain. Her labs on admission corroborated DKA with pH 6.9, AGAP 27, ++ ketones, and sugar 349. She was also exhibiting slight kussmaul breathing pattern, likely driving her PcO2 down to the measured 20s. She was given 1 L NS which was difficult to run because patient was continuously moving her arms and refusing a second IV. We ordered a second liter of lactated ringer with 20 meq of potassium because of a K of 4.6 but with slight hemolysis. Insulin drip was also ordered. Patient was receiving these interventions but again refusing the second IV as she wanted to be sent up to the ICU. Patient remained mildly tachycardic but not hypoxic or hypotensive during her stay with us. Patient was signed out to admitting team and the ICU team. The Insulin order as cancelled by the admitting team then reordered later. Patient stable on transfer to the ICU. 10/18/18 14:01 *DC/Admit/Observation/Transfer Diagnosis at time of Disposition: DKA (diabetic ketoacidoses) Qualifiers: Diabetes mellitus type: type 1 Diabetes mellitus complication detail: without coma Qualified Code(s): E10.10 - Type 1 diabetes mellitus with ketoacidosis without coma - Discharge Dispostion Condition at time of disposition: Improved Decision to Admit order: Yes - Referrals - Patient Instructions - Post Discharge Activity
[2018-10-18] MEDS ORDERED: ACETAMINOPHEN 1000 MG/100 ML VIAL (NON FORMULARY) IVPB ONE (12:36)
[2018-10-18] MEDS ORDERED: ACETAMINOPHEN INJECTION 100 ML IVPB ONE (12:39)
[2018-10-18] MEDS ORDERED: SODIUM CHLORIDE 0.9% 500 ML INFUS.BAG IV ONE (12:39)
[2018-10-18] MEDS ORDERED: ONDANSETRON 4 MG/2 ML VIAL IVPUSH ONE ×2 (12:40→17:45)
[2018-10-18] MEDS ORDERED: ONDANSETRON 4 MG/2 ML VIAL ONE (12:50)
[2018-10-18 13:14] LABS: VENOUS PC02 21.1 mmHg (38-52); VENOUS PO2 52.2 mmHg (28-48)
[2018-10-18 13:17] LABS: VENOUS PH 6.93 (7.32-7.42)
[2018-10-18 13:19] LABS: BASO % 0.3 % (0-2.0); HEMATOCRIT 43.1 % (32.4-45.2); HEMOGLOBIN 13.6 GM/dL (10.7-15.3); LYMPH % 8.5 % (8-40); MCH 30.5 pg (25.7-33.7); MCHC 31.6 g/dl (32.0-36.0); MEAN CELL VOLUME 96.4 fl (80-96); MEAN PLT VOLUME 8.6 fl (7.5-11.1); MONO % 6.4 % (3.8-10.2); NEUT % 84.8 % (42.8-82.8); PLATELET COUNT 297 K/MM3 (134-434); RBC 4.47 M/mm3 (3.60-5.2); RDW 13.4 % (11.6-15.6); WHITE BLOOD COUNT 16.1 K/mm3 (4.0-10.0)
[2018-10-18] MEDS ORDERED: INSULIN REGULAR 100 UNITS in SODIUM CHLORIDE 99 ML IVPB SCH ×4 (13:30→23:06)
--- NOTE | 2018-10-18 13:31 | PDOC ---
Attending Attestation - Resident Resident Name: ServandoSebastianjuaquinmelissa - ED Attending Attestation I have performed the following: I have examined & evaluated the patient, The case was reviewed & discussed with the resident, I agree w/resident's findings & plan - HPI HPI: 10/18/18 13:29 33 year old Female with PMH of IDDM, Depression, Anxiety, Thyroid disorder presenting with nausea, vomiting, abdominal pain in the setting of high blood sugars 2/2 lack of long acting insulin for the past three days. - Physicial Exam PE: 10/18/18 13:39 malaised appearing, rapid breathing, +Kussmaul's respirations. PERRL, EOMI, dry mucus membranes and lips. nl conjunctiva, anicteric; neck supple. lungs clear, + tachy, abdomen soft nondistended, diffusely tender. NEAL x4, no focal neuro deficits. No peripheral edema. normal color for ethnicity, WWP. no rash - Critical Care Time Total Critical Care Time: 45 (DKA, metabolic crisis) Critical Care Statement: The care of this patient involved high complexity decision making to prevent further life threatening deterioration of the patient 's condition and/or to evaluate & treat vital organ system(s) failure or risk of failure. - Medical Decision Making 10/18/18 13:29 See HPI for details Vital signs reviewed, +tachy and tachypneic. normal SpO2, normotensive DDx. DKA, HHS, electrolyte/metabolic derangements, dehydration, infection. Prior notes reviewed, including admissions, discharges and consultations. laboratory results and imaging reviewed, basic labs and lytes notable for severe acidosis, anion gap and low bicarb on VBG. clinically appearing as DKA, insulin gtt and UA_no infection, but +glucose/ketones/protein EKG sinus tachycardia, no interval abnormalities, narrow QRS, ST and T wave segments and morphology normal. Nonspecific T wave abnormalities ED course: clinically with DKA, repletions as needed, but potassium wnl, IVF with LR hydration and insuling gtt ICU cs, admit for higher level of care of DKA in setting of missed long acting insulin she ran out. on insulin gtt. 10/18/18 13:38 10/18/18 15:32 10/18/18 15:45
[2018-10-18 13:41] LABS: ALBUMIN 4.4 g/dl (3.4-5.0); ALK PHOS 80 U/L (45-117); ANION GAP 27 MMOL/L (8-16); BILIRUBIN,TOTAL 0.3 mg/dL (0.2-1); BLOOD UREA NITROGEN 14 mg/dL (7-18); CHLORIDE 100 mmol/L (98-107); CO2 5 mmol/L (21-32); CREATININE 1.1 mg/dL (0.55-1.3); POTASSIUM 4.6 mmol/L (3.5-5.1); SGOT/AST 21 U/L (15-37); SGPT/ALT 23 U/L (13-61); SODIUM 132 mmol/L (136-145); TOT PROT 8.2 g/dl (6.4-8.2)
[2018-10-18] MEDS ORDERED: FAMOTIDINE 20 MG/50 ML IVPB 20 MG/50 ML MG IVPB ONE ×3 (13:41→17:45)
[2018-10-18] MEDS ORDERED: LACTATED RINGERS SOLUTION 1000 ML INFUS.BAG IV ONE ×5 (13:41→18:49)
[2018-10-18 13:58] LABS: CARBOXYHEMOGLOBIN 0.9 gm% (0.5-2.0)
[2018-10-18 14:10] LABS: ARTERIAL BLD GAS O2 SATURATION 95.9 % (90-98.9); ARTERIAL BLOOD GAS pH 6.95 (7.35-7.45)
[2018-10-18 14:13] LABS: ARTERIAL BLOOD GAS PCO2 13.3 mmHg (35-45)
[2018-10-18] MEDS ORDERED: POTASSIUM CHLORIDE 20 MEQ in LACTATED RINGERS SOLUTION 1,000 ML IVPB ONE (14:30)
[2018-10-18 14:38] LABS: GLUCOSE,RANDOM 349 mg/dL (74-106)
[2018-10-18 14:44] LABS: URINE APPEARANCE SLCLOUDY; URINE BILIRUBIN NEGATIVE (<2.0 mg/dL); URINE COLOR LTYELLOW; URINE GLUCOSE (UA) 3+ (NEGATIVE); URINE KETONE 2+ (NEGATIVE); URINE LEUK ESTERASE NEGATIVE (NEGATIVE); URINE NITRITE NEGATIVE (NEGATIVE); URINE PROTEIN 2+ (NEGATIVE); URINE UROBILINOGEN NEGATIVE mg/dL (0.2-1.0)
[2018-10-18 14:49] LABS: EPI CELLS MODERATE /HPF (FEW); URINE MUCUS RARE
[2018-10-18] MEDS ORDERED: INSULIN REGULAR HUMAN 100 UNITS/ML *VIAL IVPUSH ONE (14:54)
[2018-10-18] MEDS ORDERED: SODIUM CHLORIDE 3,000 ML IV STA (15:06)
--- NOTE | 2018-10-18 15:07 | CONSULT ---
Consultation: CONSULT REQUEST: We have been asked to medically evaluate this patient for Diabetic Ketoacidosis HISTORY OF PRESENT ILLNESS: 33 year old female with a past medical history of insulin dependent diabetes mellitus (outpatient endocrine doctor is Dr. Matamoros) with multiple episodes of DKA, Depression, Anxiety, thyroid disorder presents to the hospital for 1 day of nausea, vomiting, abdominal pain. Reports that her abdominal pain is in the epigastrum and doesn't radiate. Reports that she vomited 8-10 times yesterday, non-bloody emesis. Reports the symptoms began last night and she does not recall any inciting factors, food that she ate, or activities that she participated in that she believes could have triggered the event. She states that she missed a couple doses of her insulin. She does report frequency on urination and cloudy urine for the past day, and reports a prior history of UTIs. Denies chest pain, diarrhea, fevers, chills.Last seen for DKA in the hospital in August. Patient sees Dr. Matamoros as an outpatient. Reports being on long acting insulin and humalog at home Allergies: none Surgeries: 2 C sections Smoke: 1 pack per day since she was 23 years old Alcohol: socially, last drink last week Drugs: denies Family Hx: diabetes in family REVIEW OF SYSTEMS: CONSTITUTIONAL: generalized weakness Absent: fever, chills, diaphoresis,, malaise, loss of appetite, weight change HEENT: Absent: rhinorrhea, nasal congestion, throat pain, throat swelling, difficulty swallowing, mouth swelling, ear pain, eye pain, visual changes CARDIOVASCULAR: lightheadedness Absent: chest pain, syncope, palpitations, irregular heart rate, peripheral edema RESPIRATORY: shortness of breath Absent: cough, , dyspnea with exertion, orthopnea, wheezing, stridor, hemoptysis GASTROINTESTINAL:abdominal pain, vomiting Absent: abdominal distension, nausea, diarrhea, constipation, melena, hematochezia GENITOURINARY: dysuria, frequency Absent: urgency, hesitancy, hematuria, flank pain, genital pain MUSCULOSKELETAL: Absent: myalgia, arthralgia, joint swelling, back pain, neck pain SKIN: Absent: rash, itching, pallor HEMATOLOGIC/IMMUNOLOGIC: Absent: easy bleeding, easy bruising, lymphadenopathy, frequent infections ENDOCRINE: Absent: unexplained weight gain, unexplained weight loss, heat intolerance, cold intolerance NEUROLOGIC: Absent: headache, focal weakness or paresthesias, dizziness, unsteady gait, seizure, mental status changes, bladder or bowel incontinence PSYCHIATRIC: Absent: anxiety, depression, suicidal or homicidal ideation, hallucinations. PHYSICAL EXAMINATION Vital Signs - 24 hr 10/18/18 12:25 Temperature 97.6 F Pulse Rate 112 H Respiratory 30 H Rate Blood Pressure 144/86 O2 Sat by Pulse 100 Oximetry (%) GENERAL: A&Ox3, moderate dystress EYES: PERRLA, EOMI ENT: Dry mucus membranes NECK: No JVD LUNGS: CTA, no wheezes, very tachpneic (Kaussmaul breathing) HEART: tachycardic but regular, no murmurs ABDOMEN: Soft, tender to palpation in epigastrum MUSCULOSKELETAL: Mild R sided CVA tenderness. EXTREMITIES: 2+ pulses, no edema. NEUROLOGICAL: Cranial nerves II-XII intact. 5/5 motor and sensory ability b/l upper, lower extremities and face. Laboratory Results - last 24 hr 10/18/18 10/18/18 10/18/18 13:06 13:06 13:06 WBC 16.1 H RBC 4.47 Hgb 13.6 Hct 43.1 D MCV 96.4 H D MCH 30.5 MCHC 31.6 L RDW 13.4 Plt Count 297 MPV 8.6 Absolute Neuts (auto) 13.6 H Neutrophils % 84.8 H Lymphocytes % 8.5 Monocytes % 6.4 Eosinophils % 0.0 Basophils % 0.3 Nucleated RBC % 0 Anticoagulation Therapy Puncture Site ABG pH ABG pCO2 at Pt Temp ABG pO2 at Pt Temp ABG HCO3 ABG O2 Sat (Measured) ABG O2 Content ABG Base Excess Vinny Test VBG pH 6.93 L* D POC VBG pCO2 21.1 L D POC VBG pO2 52.2 H D Mixed VBG HCO3 4.2 L* Carboxyhemoglobin Methemoglobin O2 Delivery Device Oxygen Flow Rate Vent Mode Vent Rate Mechanical Rate Pressure Support Vent Sodium 132 L Potassium 4.6 Chloride 100 Carbon Dioxide 5 L Anion Gap 27 H BUN 14 Creatinine 1.1 Creat Clearance w eGFR 57.56 POC Glucometer Random Glucose 349 H* Lactic Acid Calcium 8.0 L Total Bilirubin 0.3 AST 21 ALT 23 Alkaline Phosphatase 80 Total Protein 8.2 Albumin 4.4 TSH Free T4 Beta HCG, Quant Urine Color Urine Appearance Urine pH Ur Specific [place] Urine Protein Urine Glucose (UA) Urine Ketones Urine Blood Urine Nitrite Urine Bilirubin Urine Urobilinogen Ur Leukocyte Esterase Acetone, Qual 10/18/18 10/18/18 10/18/18 13:06 13:06 13:10 WBC RBC Hgb Hct MCV MCH MCHC RDW Plt Count MPV Absolute Neuts (auto) Neutrophils % Lymphocytes % Monocytes % Eosinophils % Basophils % Nucleated RBC % Anticoagulation Therapy Puncture Site ABG pH ABG pCO2 at Pt Temp ABG pO2 at Pt Temp ABG HCO3 ABG O2 Sat (Measured) ABG O2 Content ABG Base Excess Vinny Test VBG pH POC VBG pCO2 POC VBG pO2 Mixed VBG HCO3 Carboxyhemoglobin Methemoglobin O2 Delivery Device Oxygen Flow Rate Vent Mode Vent Rate Mechanical Rate Pressure Support Vent Sodium Potassium Chloride Carbon Dioxide Anion Gap BUN Creatinine Creat Clearance w eGFR POC Glucometer Random Glucose Lactic Acid Calcium Total Bilirubin AST ALT Alkaline Phosphatase Total Protein Albumin TSH 0.25 L Free T4 0.98 Beta HCG, Quant 1.8 Urine Color Urine Appearance Urine pH Ur Specific [place] Urine Protein Urine Glucose (UA) Urine Ketones Urine Blood Urine Nitrite Urine Bilirubin Urine Urobilinogen Ur Leukocyte Esterase Acetone, Qual Positive moderate 2+ H 10/18/18 10/18/18 10/18/18 13:20 13:40 13:54 WBC RBC Hgb Hct MCV MCH MCHC RDW Plt Count MPV Absolute Neuts (auto) Neutrophils % Lymphocytes % Monocytes % Eosinophils % Basophils % Nucleated RBC % Anticoagulation Therapy Puncture Site ABG pH ABG pCO2 at Pt Temp ABG pO2 at Pt Temp ABG HCO3 ABG O2 Sat (Measured) ABG O2 Content ABG Base Excess Vinny Test VBG pH POC VBG pCO2 POC VBG pO2 Mixed VBG HCO3 Carboxyhemoglobin 0.9 Methemoglobin 1.1 O2 Delivery Device Oxygen Flow Rate Vent Mode Vent Rate Mechanical Rate Pressure Support Vent Sodium Potassium Chloride Carbon Dioxide Anion Gap BUN Creatinine Creat Clearance w eGFR POC Glucometer Random Glucose Lactic Acid 0.6 Calcium Total Bilirubin AST ALT Alkaline Phosphatase Total Protein Albumin TSH Free T4 Beta HCG, Quant Urine Color Ltyellow Urine Appearance Slcloudy Urine pH 5.0 Ur Specific [place] 1.016 Urine Protein 2+ H Urine Glucose (UA) 3+ H Urine Ketones 2+ H Urine Blood 1+ H Urine Nitrite Negative Urine Bilirubin Negative Urine Urobilinogen Negative Ur Leukocyte Esterase Negative Acetone, Qual 10/18/18 10/18/18 14:00 14:45 WBC RBC Hgb Hct MCV MCH MCHC RDW Plt Count MPV Absolute Neuts (auto) Neutrophils % Lymphocytes % Monocytes % Eosinophils % Basophils % Nucleated RBC % Anticoagulation Therapy No Result Required. Puncture Site Right radial ABG pH 6.95 L* ABG pCO2 at Pt Temp 13.3 L* ABG pO2 at Pt Temp 131.0 H ABG HCO3 2.7 L* ABG O2 Sat (Measured) 95.9 ABG O2 Content 18.6 ABG Base Excess -30.0 L* Vinny Test No Result Required. VBG pH POC VBG pCO2 POC VBG pO2 Mixed VBG HCO3 Carboxyhemoglobin Methemoglobin O2 Delivery Device No Result Required. Oxygen Flow Rate Vent Mode No Result Required. Vent Rate No Result Required. Mechanical Rate No Result Required. Pressure Support Vent No Result Required. Sodium Potassium Chloride Carbon Dioxide Anion Gap BUN Creatinine Creat Clearance w eGFR POC Glucometer 362 Random Glucose Lactic Acid Calcium Total Bilirubin AST ALT Alkaline Phosphatase Total Protein Albumin TSH Free T4 Beta HCG, Quant Urine Color Urine Appearance Urine pH Ur Specific [place] Urine Protein Urine Glucose (UA) Urine Ketones Urine Blood Urine Nitrite Urine Bilirubin Urine Urobilinogen Ur Leukocyte Esterase Acetone, Qual Active Medications Generic Name Dose Route Start Last Admin Trade Name Freq PRN Reason Stop Dose Admin Potassium Chloride 20 meq/ 1,010 mls @ 505 mls/hr 10/18/18 14:30 Lactated Ringer's IVPB 10/18/18 16:29 ONCE ONE Insulin Human Regular 10 units 10/18/18 14:54 Novolin R Vial *For Ivpush Or Iv Drip Only* IVPUSH 10/18/18 14:55 ONCE ONE ASSESSMENT/PLAN: 33 year old female with a past medical history of insulin dependent diabetes mellitus (outpatient endocrine doctor is Dr. Matamoros) with multiple episodes of DKA, Depression, Anxiety, thyroid disorder presents to the hospital for 1 day of nausea, vomiting, abdominal pain and admitted for the treatment of DKA. Endocrine: 1. Diabetic Ketoacidosis: patient likely went into DKA from medication noncompliance vs infection (UTI), -Initial ABG pH 6.95, PCO2 13.3, HCO3 2.7 -Blood glucose on initial BMP was 349 with an anion gap of 27 -1L NS given in ED -1L lactated ringers was ordered by ED with 20mEQ KCl -3L boluses were ordered for patient -10U insulin IV push -Start insulin drip and monitor BGM closely as sugar was low -BGMs every hour -BMPs q2-4 hours, monitor the potassium, bicarb, anion gap -repeat ABG -Dr. Matamoros consulted -A1C 2. Abnormal Thyroid Function Tests -TSH was low and normal T4 Neurological: Stable, A&Ox3 Mild headache, tylenol was given Cardiovascular: Patient in sinus tachycardia, likely due to volume depletion Will resuscitate fluids aggressively and monitor tele Pulmonary: Patient tachypneic and appears to be having Kaussmaul respirations Improving after fluid resuscitation CXR without any cardiac or pulmonary abnormalities Renal: Normal creatinine, elevated BUN likely due to dehydration 2+ proteinuria possibly due to early kidney disease, will order microalbumin GI: -patient is having abdominal pain in epigastric region due to her DKA -will hydrate patient, give tylenol for this pain as well as headache and monitor ID: Patient is having urinary frequency and cloudy urine, UA negative but will send culture Hold off on antibiotics at present time FEN 2x bolus given in ED (1NS and 1LR) 1x bolus of LR w/ 20 KCl being given now in ICU Insulin Drip Keep NPO Replenish potassium in fluids Prophylaxis Heparin for prophylaxis Disposition We will continue to follow the patient. Thank you for this consultative opportunity. Visit type - Emergency Visit Emergency Visit: No - New Patient This patient is new to me today: No - Critical Care Critical Care patient: Yes Total Critical Care Time (in minutes): 41 Critical Care Statement: The care of this patient involved high complexity decision making to prevent further life threatening deterioration of the patient 's condition and/or to evaluate & treat vital organ system(s) failure or risk of failure.
--- NOTE | 2018-10-18 15:24 | HP ---
CHIEF COMPLAINT: Abdominal pain, headache PCP: Dr. Fernando Estevez HISTORY OF PRESENT ILLNESS: The patient is a 33 yo f w/ PMH IDDM w/ multiple episodes of DKA, depression, hyperthyroidism who comes into the ED c/o a 1 day hx of nausea, vomiting and abdominal pain. The patient states that she ran out of her long acting insulin approx. 3 days ago, but has been taking her short acting insulin. Yesterday, the patient began to experience nausea and vomiting, having approx. 8-10 episodes of NBNB emesis. These ssx were associated with abdominal pain. Patient states that her blood sugars have been in the high 200's at home during this time. The patient describes her pain as dull in nature and located diffusely across the abdomen. it is nonradiating and has no exacerbating or alleviating factors. Patient denies chest pain, SOB, diarrhea, cough, dysuria, fevers, chills. The patient's last DKA episode was this past August. She follows w/ Dr. Matamoros for her DM management. ER course was notable for: (1) 4L LR (2) 1L LR w/ KCL (3) Insulin GTT (4) ABG w/ pH 6.95 (5) bicarb 5, BG 349, 2+ acetone in the blood Recent Travel: none PAST MEDICAL HISTORY: see HPI PAST SURGICAL HISTORY: 2 c sections Social History: Smokinppd x 10 yrs Alcohol: socially Drugs: denies Family History: non-contributory Allergies No Known Allergies Allergy (Verified 08/18/18 23:31) HOME MEDICATIONS: Home Medications Medication Instructions Recorded Gabapentin 300 mg PO TID 08/19/18 Levothyroxine [Synthroid -] 125 mcg PO DAILY@0700 08/19/18 Pantoprazole Sodium 40 mg PO DAILY 08/19/18 Insulin (Levemir) [Levemir Vial] 28 units SQ HS #1 vial 08/22/18 Insulin Sliding Scale [Novolog 1 vial SQ TIDAC units 08/22/18 Vial Sliding Scale -] Nicotine Patch [Nicoderm Patch -] 21 mg TD DAILY patch 08/22/18 levoFLOXacin [Levaquin -] 500 mg PO DAILY 5 Days #5 tablet 08/22/18 REVIEW OF SYSTEMS CONSTITUTIONAL: Absent: fever, chills, diaphoresis, generalized weakness, malaise, loss of appetite, weight change HEENT: Absent: rhinorrhea, nasal congestion, throat pain, throat swelling, difficulty swallowing, mouth swelling, ear pain, eye pain, visual changes CARDIOVASCULAR: Absent: chest pain, syncope, palpitations, irregular heart rate, lightheadedness , peripheral edema RESPIRATORY: Absent: cough, shortness of breath, dyspnea with exertion, orthopnea, wheezing, stridor, hemoptysis GASTROINTESTINAL: Absent: abdominal distension, diarrhea, constipation, melena, hematochezia GENITOURINARY: Absent: dysuria, frequency, urgency, hesitancy, hematuria, flank pain, genital pain MUSCULOSKELETAL: Absent: myalgia, arthralgia, joint swelling, back pain, neck pain SKIN: Absent: rash, itching, pallor HEMATOLOGIC/IMMUNOLOGIC: Absent: easy bleeding, easy bruising, lymphadenopathy, frequent infections ENDOCRINE: Absent: unexplained weight gain, unexplained weight loss, heat intolerance, cold intolerance NEUROLOGIC: Absent: headache, focal weakness or paresthesias, dizziness, unsteady gait, seizure, mental status changes, bladder or bowel incontinence PSYCHIATRIC: Absent: anxiety, depression, suicidal or homicidal ideation, hallucinations. PHYSICAL EXAMINATION Vital Signs - 24 hr 10/18/18 12:25 Temperature 97.6 F Pulse Rate 112 H Respiratory 30 H Rate Blood Pressure 144/86 O2 Sat by Pulse 100 Oximetry (%) GENERAL: Awake, alert, and fully oriented, in moderate distress. Kussmaul breathing observed HEAD: Normal with no signs of trauma. EYES: Pupils equal, round and reactive to light, extraocular movements intact, sclera anicteric, conjunctiva clear. No lid lag. LUNGS: Breath sounds equal, clear to auscultation bilaterally. No wheezes, and no crackles. No accessory muscle use. HEART: Regular rhythm, tachycardic, normal S1 and S2 without murmur, rub or gallop. ABDOMEN: Soft, not distended, normoactive bowel sounds. Tenderness to palpation all across the abdomen LOWER EXTREMITIES: 2+ pulses, warm, well-perfused. No calf tenderness. No peripheral edema. NEUROLOGICAL: Cranial nerves II-X intact. Normal speech. SKIN: Warm, dry, normal turgor, no rashes or lesions noted, normal capillary refill. Laboratory Results - last 24 hr 10/18/18 10/18/18 10/18/18 13:06 13:06 13:06 WBC 16.1 H RBC 4.47 Hgb 13.6 Hct 43.1 D MCV 96.4 H D MCH 30.5 MCHC 31.6 L RDW 13.4 Plt Count 297 MPV 8.6 Absolute Neuts (auto) 13.6 H Neutrophils % 84.8 H Lymphocytes % 8.5 Monocytes % 6.4 Eosinophils % 0.0 Basophils % 0.3 Nucleated RBC % 0 Anticoagulation Therapy Puncture Site ABG pH ABG pCO2 at Pt Temp ABG pO2 at Pt Temp ABG HCO3 ABG O2 Sat (Measured) ABG O2 Content ABG Base Excess Vinny Test VBG pH 6.93 L* D POC VBG pCO2 21.1 L D POC VBG pO2 52.2 H D Mixed VBG HCO3 4.2 L* Carboxyhemoglobin Methemoglobin O2 Delivery Device Oxygen Flow Rate Vent Mode Vent Rate Mechanical Rate Pressure Support Vent Sodium 132 L Potassium 4.6 Chloride 100 Carbon Dioxide 5 L Anion Gap 27 H BUN 14 Creatinine 1.1 Creat Clearance w eGFR 57.56 POC Glucometer Random Glucose 349 H* Lactic Acid Calcium 8.0 L Total Bilirubin 0.3 AST 21 ALT 23 Alkaline Phosphatase 80 Total Protein 8.2 Albumin 4.4 TSH Free T4 Beta HCG, Quant Urine Color Urine Appearance Urine pH Ur Specific [place] Urine Protein Urine Glucose (UA) Urine Ketones Urine Blood Urine Nitrite Urine Bilirubin Urine Urobilinogen Ur Leukocyte Esterase Urine WBC (Auto) Urine RBC (Auto) Ur Epithelial Cells Urine Mucus Acetone, Qual 10/18/18 10/18/18 10/18/18 13:06 13:06 13:10 WBC RBC Hgb Hct MCV MCH MCHC RDW Plt Count MPV Absolute Neuts (auto) Neutrophils % Lymphocytes % Monocytes % Eosinophils % Basophils % Nucleated RBC % Anticoagulation Therapy Puncture Site ABG pH ABG pCO2 at Pt Temp ABG pO2 at Pt Temp ABG HCO3 ABG O2 Sat (Measured) ABG O2 Content ABG Base Excess Vinny Test VBG pH POC VBG pCO2 POC VBG pO2 Mixed VBG HCO3 Carboxyhemoglobin Methemoglobin O2 Delivery Device Oxygen Flow Rate Vent Mode Vent Rate Mechanical Rate Pressure Support Vent Sodium Potassium Chloride Carbon Dioxide Anion Gap BUN Creatinine Creat Clearance w eGFR POC Glucometer Random Glucose Lactic Acid Calcium Total Bilirubin AST ALT Alkaline Phosphatase Total Protein Albumin TSH 0.25 L Free T4 0.98 Beta HCG, Quant 1.8 Urine Color Urine Appearance Urine pH Ur Specific [place] Urine Protein Urine Glucose (UA) Urine Ketones Urine Blood Urine Nitrite Urine Bilirubin Urine Urobilinogen Ur Leukocyte Esterase Urine WBC (Auto) Urine RBC (Auto) Ur Epithelial Cells Urine Mucus Acetone, Qual Positive moderate 2+ H 10/18/18 10/18/18 10/18/18 13:20 13:40 13:54 WBC RBC Hgb Hct MCV MCH MCHC RDW Plt Count MPV Absolute Neuts (auto) Neutrophils % Lymphocytes % Monocytes % Eosinophils % Basophils % Nucleated RBC % Anticoagulation Therapy Puncture Site ABG pH ABG pCO2 at Pt Temp ABG pO2 at Pt Temp ABG HCO3 ABG O2 Sat (Measured) ABG O2 Content ABG Base Excess Vinny Test VBG pH POC VBG pCO2 POC VBG pO2 Mixed VBG HCO3 Carboxyhemoglobin 0.9 Methemoglobin 1.1 O2 Delivery Device Oxygen Flow Rate Vent Mode Vent Rate Mechanical Rate Pressure Support Vent Sodium Potassium Chloride Carbon Dioxide Anion Gap BUN Creatinine Creat Clearance w eGFR POC Glucometer Random Glucose Lactic Acid 0.6 Calcium Total Bilirubin AST ALT Alkaline Phosphatase Total Protein Albumin TSH Free T4 Beta HCG, Quant Urine Color Ltyellow Urine Appearance Slcloudy Urine pH 5.0 Ur Specific [place] 1.016 Urine Protein 2+ H Urine Glucose (UA) 3+ H Urine Ketones 2+ H Urine Blood 1+ H Urine Nitrite Negative Urine Bilirubin Negative Urine Urobilinogen Negative Ur Leukocyte Esterase Negative Urine WBC (Auto) 1 Urine RBC (Auto) None Ur Epithelial Cells Moderate Urine Mucus Rare Acetone, Qual 10/18/18 10/18/18 14:00 14:45 WBC RBC Hgb Hct MCV MCH MCHC RDW Plt Count MPV Absolute Neuts (auto) Neutrophils % Lymphocytes % Monocytes % Eosinophils % Basophils % Nucleated RBC % Anticoagulation Therapy No Result Required. Puncture Site Right radial ABG pH 6.95 L* ABG pCO2 at Pt Temp 13.3 L* ABG pO2 at Pt Temp 131.0 H ABG HCO3 2.7 L* ABG O2 Sat (Measured) 95.9 ABG O2 Content 18.6 ABG Base Excess -30.0 L* Vinny Test No Result Required. VBG pH POC VBG pCO2 POC VBG pO2 Mixed VBG HCO3 Carboxyhemoglobin Methemoglobin O2 Delivery Device No Result Required. Oxygen Flow Rate Vent Mode No Result Required. Vent Rate No Result Required. Mechanical Rate No Result Required. Pressure Support Vent No Result Required. Sodium Potassium Chloride Carbon Dioxide Anion Gap BUN Creatinine Creat Clearance w eGFR POC Glucometer 362 Random Glucose Lactic Acid Calcium Total Bilirubin AST ALT Alkaline Phosphatase Total Protein Albumin TSH Free T4 Beta HCG, Quant Urine Color Urine Appearance Urine pH Ur Specific [place] Urine Protein Urine Glucose (UA) Urine Ketones Urine Blood Urine Nitrite Urine Bilirubin Urine Urobilinogen Ur Leukocyte Esterase Urine WBC (Auto) Urine RBC (Auto) Ur Epithelial Cells Urine Mucus Acetone, Qual ASSESSMENT/PLAN: The patient is a 33 yo f w/ PMH depression IDDM, hypothyroidism who comes into the ED c/o abdominal pain, nausea and vomiting found to be in DKA. #abdominal pain, nausea and vomiting 2/2 DKA -random BG on admission 349 -acidotic w/ AG 27 and ketones in blood -s/p a total of 5 L in ED, one w/ KCL -will order insulin 10u IV push now -will begin insulin GTT @ 1 unit/hr -BGM Q1H -bmp q4h starting @ 1800 -NS 3L bolus -NPO -will convert to insulin SQ once gap closed -monitor closely for hypoglycemia -will consult Dr. Matamoros for further DM mgmt #Hypothyroidism -holding home meds until DKA managed #FEN -bolus as above, LR @ 250 maintenance -monitor lytes closely for hypokalemia -NPO until gap closed #Prophy -lovenox 40mg SQ daily #dispo -admit ICU -medications verified with patient Visit type - Emergency Visit Emergency Visit: Yes ED Registration Date: 10/18/18 Care time: The patient presented to the Emergency Department on the above date and was hospitalized for further evaluation of their emergent condition. - New Patient This patient is new to me today: Yes Date on this admission: 10/18/18 - Critical Care Critical Care patient: Yes Total Critical Care Time (in minutes): 60 Critical Care Statement: The care of this patient involved high complexity decision making to prevent further life threatening deterioration of the patient 's condition and/or to evaluate & treat vital organ system(s) failure or risk of failure.
--- NOTE | 2018-10-18 17:15 | PN ---
Teaching Attending Note Name of Resident: Elliott Tapia ATTENDING PHYSICIAN STATEMENT I saw and evaluated the patient. I reviewed the resident's note and discussed the case with the resident. I agree with the resident's findings and plan as documented. SUBJECTIVE: 33 year old female with history of DM 2, Depression, Anxiety, Hypothyroidism, presents with 3 day history of nausea, vomiting, abdominal discomfort, dizziness, hyperglycemia since running out of her long-acting insulin several days ago. Complains of intermittent retrosternal burning. Currently pain free. No fever/chills/cough/sputum/dysuria/hematuria/diarrhea/ fever/chills. Complains of nausea and profuse vomiting that is non-bilious and non-bloody. OBJECTIVE: Afebrile, Hemodynamically Stable. Last Vital Signs Temp Pulse Resp BP Pulse Ox 98.1 F 106 H 28 H 132/71 100 10/18/18 16:00 10/18/18 16:00 10/18/18 16:00 10/18/18 16:00 10/18/18 16:00 HEENT - Atraumatic, Normocephalic Heart - S1, S2, RRR Lungs - clear to auscultation Abdomen - generalized tenderness, worse in epigastric area. Soft. No guarding or rebound. Bowel Sounds normal. Extremities - No edema, no calf tenderness. Neuro - AAO x 3. Tone/Power normal all 4 extremities. Laboratory Results - last 24 hr 10/18/18 10/18/18 10/18/18 13:06 13:06 13:06 WBC 16.1 H RBC 4.47 Hgb 13.6 Hct 43.1 D MCV 96.4 H D MCH 30.5 MCHC 31.6 L RDW 13.4 Plt Count 297 MPV 8.6 Absolute Neuts (auto) 13.6 H Neutrophils % 84.8 H Lymphocytes % 8.5 Monocytes % 6.4 Eosinophils % 0.0 Basophils % 0.3 Nucleated RBC % 0 Anticoagulation Therapy Puncture Site ABG pH ABG pCO2 at Pt Temp ABG pO2 at Pt Temp ABG HCO3 ABG O2 Sat (Measured) ABG O2 Content ABG Base Excess Vinny Test VBG pH 6.93 L* D POC VBG pCO2 21.1 L D POC VBG pO2 52.2 H D Mixed VBG HCO3 4.2 L* Carboxyhemoglobin Methemoglobin O2 Delivery Device Oxygen Flow Rate Vent Mode Vent Rate Mechanical Rate Pressure Support Vent Sodium 132 L Potassium 4.6 Chloride 100 Carbon Dioxide 5 L Anion Gap 27 H BUN 14 Creatinine 1.1 Creat Clearance w eGFR 57.56 POC Glucometer Random Glucose 349 H* Lactic Acid Calcium 8.0 L Total Bilirubin 0.3 AST 21 ALT 23 Alkaline Phosphatase 80 Total Protein 8.2 Albumin 4.4 TSH Free T4 Beta HCG, Quant Urine Color Urine Appearance Urine pH Ur Specific [place] Urine Protein Urine Glucose (UA) Urine Ketones Urine Blood Urine Nitrite Urine Bilirubin Urine Urobilinogen Ur Leukocyte Esterase Urine WBC (Auto) Urine RBC (Auto) Ur Epithelial Cells Urine Mucus Acetone, Qual 10/18/18 10/18/18 10/18/18 13:06 13:06 13:10 WBC RBC Hgb Hct MCV MCH MCHC RDW Plt Count MPV Absolute Neuts (auto) Neutrophils % Lymphocytes % Monocytes % Eosinophils % Basophils % Nucleated RBC % Anticoagulation Therapy Puncture Site ABG pH ABG pCO2 at Pt Temp ABG pO2 at Pt Temp ABG HCO3 ABG O2 Sat (Measured) ABG O2 Content ABG Base Excess Vinny Test VBG pH POC VBG pCO2 POC VBG pO2 Mixed VBG HCO3 Carboxyhemoglobin Methemoglobin O2 Delivery Device Oxygen Flow Rate Vent Mode Vent Rate Mechanical Rate Pressure Support Vent Sodium Potassium Chloride Carbon Dioxide Anion Gap BUN Creatinine Creat Clearance w eGFR POC Glucometer Random Glucose Lactic Acid Calcium Total Bilirubin AST ALT Alkaline Phosphatase Total Protein Albumin TSH 0.25 L Free T4 0.98 Beta HCG, Quant 1.8 Urine Color Urine Appearance Urine pH Ur Specific [place] Urine Protein Urine Glucose (UA) Urine Ketones Urine Blood Urine Nitrite Urine Bilirubin Urine Urobilinogen Ur Leukocyte Esterase Urine WBC (Auto) Urine RBC (Auto) Ur Epithelial Cells Urine Mucus Acetone, Qual Positive moderate 2+ H 10/18/18 10/18/18 10/18/18 13:20 13:40 13:54 WBC RBC Hgb Hct MCV MCH MCHC RDW Plt Count MPV Absolute Neuts (auto) Neutrophils % Lymphocytes % Monocytes % Eosinophils % Basophils % Nucleated RBC % Anticoagulation Therapy Puncture Site ABG pH ABG pCO2 at Pt Temp ABG pO2 at Pt Temp ABG HCO3 ABG O2 Sat (Measured) ABG O2 Content ABG Base Excess Vinny Test VBG pH POC VBG pCO2 POC VBG pO2 Mixed VBG HCO3 Carboxyhemoglobin 0.9 Methemoglobin 1.1 O2 Delivery Device Oxygen Flow Rate Vent Mode Vent Rate Mechanical Rate Pressure Support Vent Sodium Potassium Chloride Carbon Dioxide Anion Gap BUN Creatinine Creat Clearance w eGFR POC Glucometer Random Glucose Lactic Acid 0.6 Calcium Total Bilirubin AST ALT Alkaline Phosphatase Total Protein Albumin TSH Free T4 Beta HCG, Quant Urine Color Ltyellow Urine Appearance Slcloudy Urine pH 5.0 Ur Specific [place] 1.016 Urine Protein 2+ H Urine Glucose (UA) 3+ H Urine Ketones 2+ H Urine Blood 1+ H Urine Nitrite Negative Urine Bilirubin Negative Urine Urobilinogen Negative Ur Leukocyte Esterase Negative Urine WBC (Auto) 1 Urine RBC (Auto) None Ur Epithelial Cells Moderate Urine Mucus Rare Acetone, Qual 10/18/18 10/18/18 10/18/18 14:00 14:45 15:54 WBC RBC Hgb Hct MCV MCH MCHC RDW Plt Count MPV Absolute Neuts (auto) Neutrophils % Lymphocytes % Monocytes % Eosinophils % Basophils % Nucleated RBC % Anticoagulation Therapy No Result Required. Puncture Site Right radial ABG pH 6.95 L* ABG pCO2 at Pt Temp 13.3 L* ABG pO2 at Pt Temp 131.0 H ABG HCO3 2.7 L* ABG O2 Sat (Measured) 95.9 ABG O2 Content 18.6 ABG Base Excess -30.0 L* Vinny Test No Result Required. VBG pH POC VBG pCO2 POC VBG pO2 Mixed VBG HCO3 Carboxyhemoglobin Methemoglobin O2 Delivery Device No Result Required. Oxygen Flow Rate Vent Mode No Result Required. Vent Rate No Result Required. Mechanical Rate No Result Required. Pressure Support Vent No Result Required. Sodium Potassium Chloride Carbon Dioxide Anion Gap BUN Creatinine Creat Clearance w eGFR POC Glucometer 362 272 Random Glucose Lactic Acid Calcium Total Bilirubin AST ALT Alkaline Phosphatase Total Protein Albumin TSH Free T4 Beta HCG, Quant Urine Color Urine Appearance Urine pH Ur Specific [place] Urine Protein Urine Glucose (UA) Urine Ketones Urine Blood Urine Nitrite Urine Bilirubin Urine Urobilinogen Ur Leukocyte Esterase Urine WBC (Auto) Urine RBC (Auto) Ur Epithelial Cells Urine Mucus Acetone, Qual Current Medications Generic Name Dose Route Start Last Admin Trade Name Freq PRN Reason Stop Dose Admin Chlorhexidine Gluconate 1 applic 10/18/18 22:00 Hibiclens For Decolonization - TP HS ISI Sodium Chloride 3,000 mls @ 1,000 mls/hr 02/16/19 15:06 Normal Saline - IV 10/18/18 18:05 ASDIR STA Insulin Human Regular 100 100 mls @ 1 mls/hr 10/18/18 15:45 units/ Sodium Chloride IVPB TITR ISI Protocol 1 UNITS/HR Mupirocin 1 applic 10/18/18 22:00 Bactroban Ointment (For Decolonization) - NS 10/23/18 21:59 BID [facility] Home Medications Medication Instructions Recorded Gabapentin 300 mg PO TID 08/19/18 Levothyroxine [Synthroid -] 125 mcg PO DAILY@0700 08/19/18 Pantoprazole Sodium 40 mg PO DAILY 08/19/18 Insulin (Levemir) [Levemir Vial] 28 units SQ HS #1 vial 08/22/18 Insulin Sliding Scale [Novolog 1 vial SQ TIDAC units 08/22/18 Vial Sliding Scale -] Nicotine Patch [Nicoderm Patch -] 21 mg TD DAILY patch 08/22/18 levoFLOXacin [Levaquin -] 500 mg PO DAILY 5 Days #5 tablet 08/22/18 ASSESSMENT AND PLAN: 33 year old female with history of DM 2 (follows with Dr. Matamoros, Depression, Anxiety, Hypothyroidism, presents with 3 day history of nausea, vomiting (non- bloody, non-bilious), abdominal discomfort, dizziness, hyperglycemia since running out of her long-acting insulin several days ago. Complains of intermittent retrosternal burning. Currently pain free. No fever/chills/cough/ sputum/dysuria/hematuria/diarrhea/fever/chills. Glucose in ED 349 1. Severe DKA likely secondary to Insulin non-compliance. NOrmally on Levemir 28 units qhs and Novolog sliding scale ac, however patient ran out of long-acting insulin. pH 6.95, Bicarb 5, Anion Gap 27 Ketone positive Patient has received only 1 liter of fluid so far in ED - several additional liters ordered. IV Insulin 10 units given and insulin drip started. Continue aggressive fluid resuscitation. Regular BMP checks with appropriate electrolyte replacement. No evidence of infective etiology currently - CXR/UA/Blood Cultures ordered. If abdominal pain becomes more acute, may need abdominal imaging - will monitor. IV PPI. 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 Hypothyroidism - TSH 0.25 - Levothyroxine held. Dr. Matamoros consulted. 3. Smoker - Nicotine patch prescribed. Counselling deferred until clinically improved. DVT Px - Heparin SQ
[2018-10-18] MEDS ORDERED: LACTATED RINGERS SOLUTION 1,000 ML/1,000 ML INFUS.BAG IV SCH (17:45)
[2018-10-18] MEDS: NICOTINE 21 MG/24 HOURS TOPICAL PATCH TD SCH (17:46)
[2018-10-18] MEDS ORDERED: POTASSIUM CHLORIDE 10 MEQ in LACTATED RINGERS SOLUTION 1,000 ML IVPB ONE (18:50)
[2018-10-18] MEDS ORDERED: SODIUM CHLORIDE 1,000 ML IV STA ×2 (19:02→20:41)
[2018-10-18] MEDS ORDERED: LACTATED RINGERS IVPB ONE ×2 (19:15→22:55)
[2018-10-18] MEDS ORDERED: POTASSIUM CHLORIDE IVPB ONE ×2 (19:15→22:55)
[2018-10-18] MEDS ORDERED: DEXTROSE 5% IVPB ONE ×2 (19:15→22:55)
[2018-10-18 19:48] LABS: ANION GAP 23 MMOL/L (8-16); BLOOD UREA NITROGEN 14 mg/dL (7-18); CALCIUM 7.8 mg/dL (8.5-10.1); CHLORIDE 107 mmol/L (98-107); CO2 5 mmol/L (21-32); CREATININE 1.1 mg/dL (0.55-1.3); GLUCOSE,RANDOM 261 mg/dL (74-106); SODIUM 135 mmol/L (136-145)
[2018-10-18 19:49] LABS: MAGNESIUM 2.3 mg/dL (1.8-2.4); POTASSIUM 4.9 mmol/L (3.5-5.1)
[2018-10-18] MEDS ORDERED: MORPHINE SULFATE 2 MG/ML VIAL IVPUSH ONE (20:45)
[2018-10-18] MEDS: INSULIN REGULAR 100 UNITS in SODIUM CHLORIDE 99 ML IVPB SCH ×2 (20:50→22:38)
[2018-10-18] MEDS: MUPIROCIN 2% TOPICAL OINTMENT FOR DECOLONIZATION NS SCH (21:42)
[2018-10-18] MEDS ORDERED: SODIUM CHLORIDE 0.45% 1,000 ML IV STA (21:48)
[2018-10-18] MEDS: HEPARIN NA (PORCINE) 5,000 UNITS/ML 1ML VIAL SQ SCH (21:52)
[2018-10-18] MEDS ORDERED: CHLORHEXIDINE GLUCONATE 4% CLEANSER FOR DECOLONIZATION TP SCH (22:00)
[2018-10-18 22:02] LABS: ANION GAP 22 MMOL/L (8-16); BLOOD UREA NITROGEN 11 mg/dL (7-18); CALCIUM 7.1 mg/dL (8.5-10.1); CHLORIDE 112 mmol/L (98-107); CO2 4 mmol/L (21-32); GLUCOSE,RANDOM 249 mg/dL (74-106); SODIUM 138 mmol/L (136-145)
[2018-10-18] MEDS ORDERED: MORPHINE SULFATE 2 MG/ML VIAL IVPUSH PRN (23:28)
[2018-10-19] MEDS ORDERED: DEXTROSE 5%-0.45% SALINE 1,000 ML IV STA (00:59)
[2018-10-19 01:56] LABS: ANION GAP 18 MMOL/L (8-16); BLOOD UREA NITROGEN 8 mg/dL (7-18); CALCIUM 7.3 mg/dL (8.5-10.1); CHLORIDE 110 mmol/L (98-107); CO2 9 mmol/L (21-32); CREATININE 1.1 mg/dL (0.55-1.3); GLUCOSE,RANDOM 237 mg/dL (74-106); POTASSIUM 4.1 mmol/L (3.5-5.1); SODIUM 136 mmol/L (136-145)
[2018-10-19] MEDS ORDERED: INSULIN REGULAR 100 UNITS in SODIUM CHLORIDE 99 ML IVPB SCH (02:45)
[2018-10-19 02:51] LABS: ARTERIAL BLD GAS O2 SATURATION 98.1 % (90-98.9); ARTERIAL BLOOD GAS BASE EXCESS -19.1 meq/l (-2-2); ARTERIAL BLOOD GAS PCO2 19.1 mmHg (35-45)
[2018-10-19 02:52] LABS: ALLENS TEST POSITIVE
[2018-10-19 02:53] LABS: ARTERIAL BLOOD GAS pH 7.21 (7.35-7.45)
[2018-10-19] MEDS: POTASSIUM CHLORIDE IVPB SCH ×2 (05:00→09:02)
[2018-10-19] MEDS: LACTATED RINGERS IVPB SCH ×2 (05:00→09:02)
[2018-10-19] MEDS: DEXTROSE 5% IVPB SCH ×2 (05:00→09:02)
[2018-10-19] MEDS: HEPARIN NA (PORCINE) 5,000 UNITS/ML 1ML VIAL SQ SCH ×3 (05:55→22:21)
[2018-10-19 06:03] LABS: HEMATOCRIT 38.3 % (32.4-45.2); HEMOGLOBIN 12.6 GM/dL (10.7-15.3); MCH 30.1 pg (25.7-33.7); MCHC 32.8 g/dl (32.0-36.0); MEAN CELL VOLUME 91.6 fl (80-96); MEAN PLT VOLUME 8.5 fl (7.5-11.1); PLATELET COUNT 231 K/MM3 (134-434); RBC 4.19 M/mm3 (3.60-5.2); WHITE BLOOD COUNT 17.2 K/mm3 (4.0-10.0)
[2018-10-19 06:36] LABS: ANION GAP 13 MMOL/L (8-16); BLOOD UREA NITROGEN 8 mg/dL (7-18); CALCIUM 7.5 mg/dL (8.5-10.1); CHLORIDE 110 mmol/L (98-107); CO2 13 mmol/L (21-32); CREATININE 1.1 mg/dL (0.55-1.3); GLUCOSE,RANDOM 288 mg/dL (74-106); MAGNESIUM 1.6 mg/dL (1.8-2.4); POTASSIUM 3.8 mmol/L (3.5-5.1); SODIUM 135 mmol/L (136-145)
--- NOTE | 2018-10-19 07:31 | PN ---
Physical Exam: SUBJECTIVE: Patient seen and examined by me at bedside. Anion Gap now 13 Complains of a headache Otherwise, denies fever, chills, nausea, vomiting, chest pain, palpitations, shortness of breath OBJECTIVE: Vital Signs Period Temp Pulse Resp BP Sys/Irwin Pulse Ox Last 24 Hr 97.3 F-98.1 F 91-118 28-45 110-147/51-101 100-100 GENERAL: Awake, alert, and fully oriented, in moderate distress. EYES: Pupils equal, round and reactive to light, sclera anicteric, conjunctiva clear. LUNGS: Breath sounds equal, clear to auscultation bilaterally. No wheezes, and no crackles. No accessory muscle use. HEART: Regular rate and rhythm, normal S1 and S2 without murmur, rub or gallop. ABDOMEN: Soft, not distended, normoactive bowel sounds. Diffuse abdominal tenderness upon palpation LOWER EXTREMITIES: No peripheral edema. NEUROLOGICAL: Cranial nerves II-X intact. Normal speech. SKIN: Warm, dry, normal turgor, no rashes or lesions noted, normal capillary refill. Laboratory Results 10/19/18 05:10 10/19/18 05:10 ABG pH 7.21 (7.35-7.45) L* D 10/19/18 02:30 ABG pCO2 at Pt Temp 19.1 mmHg (35-45) L* D 10/19/18 02:30 ABG pO2 at Pt Temp 107.0 mmHg (80-100) H D 10/19/18 02:30 ABG HCO3 7.4 meq/L (22-26) L* 10/19/18 02:30 ABG O2 Sat (Measured) 98.1 % (90-98.9) 10/19/18 02:30 ABG O2 Content 16.4 % vol (15-22) 10/19/18 02:30 ABG Base Excess -19.1 meq/l (-2-2) L* 10/19/18 02:30 Active Medications Generic Name Dose Route Start Last Admin Trade Name Freq PRN Reason Stop Dose Admin Chlorhexidine Gluconate 1 applic 10/18/18 22:00 10/18/18 21:44 Hibiclens For Decolonization - TP 1 applic HS ISI Administration Heparin Sodium (Porcine) 5,000 unit 10/18/18 22:00 10/19/18 05:55 Heparin - SQ 5,000 unit TID ISI Administration Insulin Human Regular 100 100 mls @ 3 mls/hr 10/19/18 02:45 10/19/18 02:45 units/ Sodium Chloride IVPB 3 units/hr TITR ISI 3 mls/hr Administration Protocol 3 UNITS/HR Potassium Chloride 10 meq/ 1,005 mls @ 200 mls/hr 10/19/18 05:00 10/19/18 05: 00 Dextrose/Lactated Ringer's IVPB 10/19/18 14:59 200 mls/hr Q5H ISI Administration Morphine Sulfate 1 mg 10/18/18 23:28 10/18/18 23:45 Morphine Sulfate IVPUSH 1 mg Q5H PRN Administration PAIN LEVEL 6-10 Mupirocin 1 applic 10/18/18 22:00 10/18/18 21:42 Bactroban Ointment (For Decolonization) - NS 10/23/18 21:59 1 applic BID ISI Administration Nicotine 21 mg 10/18/18 17:30 10/18/18 17:46 Nicoderm Patch - TD 21 mg DAILY ISI Administration ASSESSMENT/PLAN: Patient is a 33 year old female who presented to the ED for abdominal pain, nausea, vomiting and was found to be in DKA. Patient admitted for further monitoring and management. Abdominal pain/Nausea/Vomiting Secondary to DKA -Patient found to have BGM on admission with 349, AG of 27, pH of 6.9, Ketones in urine -Patient now on Insulin drip at 5units/hr -BGM Q1H with BMP Q4H -Recent Anion Gap 13 with BGM 288 -Will continue D5-LR wit KCl -Will convert to SQ -Continue NPO for now -Monitor closely for hypoglycemia -Consult placed for Dr. Matamoros for further DM mgmt -Repeat labs pending and once anion gap closed and glucose <250, will give 15 units of sq levemir and switch fluids to NS Hypothyroidism -Continue Synthroid 125mcg F/E/N -D5-LR with KCl @200mls/hr -Hypomagnesemia. Replete and repeat -NPO but will switch to diabetic diet Prophylaxis -Lovenox 40mg SQ daily for DVT -No GI required Disposition -Full code -Gap closed and will begin sq insulin Eileen Sellers [id number] Visit type - Emergency Visit Emergency Visit: Yes ED Registration Date: 10/18/18 Care time: The patient presented to the Emergency Department on the above date and was hospitalized for further evaluation of their emergent condition. - New Patient This patient is new to me today: Yes Date on this admission: 10/19/18 - Critical Care Critical Care patient: Yes Total Critical Care Time (in minutes): 45 Critical Care Statement: The care of this patient involved high complexity decision making to prevent further life threatening deterioration of the patient 's condition and/or to evaluate & treat vital organ system(s) failure or risk of failure.
[2018-10-19] MEDS ORDERED: MAGNESIUM SULF 50% (8.12 MEQ/2 ML-1 GM VIAL) IVPB ONE (08:45)
[2018-10-19] MEDS ORDERED: ACETAMINOPHEN 650 MG/20.3 ML ORAL SOLUTION (CUPS) PO ONE (08:45)
[2018-10-19 09:41] LABS: PHOSPHOROUS 0.8 mg/dL (2.5-4.9)
[2018-10-19] MEDS: NICOTINE 21 MG/24 HOURS TOPICAL PATCH TD SCH (09:45)
[2018-10-19 10:14] LABS: ANION GAP 12 MMOL/L (8-16); BLOOD UREA NITROGEN 7 mg/dL (7-18); CALCIUM 7.8 mg/dL (8.5-10.1); CHLORIDE 109 mmol/L (98-107); CO2 16 mmol/L (21-32); GLUCOSE,RANDOM 208 mg/dL (74-106); POTASSIUM 3.5 mmol/L (3.5-5.1); SODIUM 138 mmol/L (136-145)
--- NOTE | 2018-10-19 10:16 | PN ---
Teaching Attending Note Name of Resident: Eileen Sellers ATTENDING PHYSICIAN STATEMENT I saw and evaluated the patient. I reviewed the resident's note and discussed the case with the resident. I agree with the resident's findings and plan as documented. SUBJECTIVE: Pt seen and examined in the ICU. Remains on insulin gtt. Anion gap improving. c/ o headache but abdominal pain and nausea improving. OBJECTIVE: Vital Signs Period Temp Pulse Resp BP Sys/[place] Pulse Ox Last 24 Hr 97.3 F-98.1 F 91-118 28-45 110-147/51-101 100-100 Intake & Output 10/16/18 10/17/18 10/18/18 10/19/18 23:59 23:59 23:59 23:59 Intake Total 5100 1436 Output Total 700 Balance 4400 1436 Weight 63.82 kg Gen: NAD at rest Heart: RRR Lung: decreased breath sounds at the bases Abd: soft, nontender Ext: no edema CBC, BMP 10/19/18 05:10 Active Medications Chlorhexidine Gluconate (Hibiclens For Decolonization -) 1 applic TP HS [facility] Last Admin: 10/18/18 21:44 Dose: 1 applic Heparin Sodium (Porcine) (Heparin -) 5,000 unit SQ TID [facility] Last Admin: 10/19/18 05:55 Dose: 5,000 unit Insulin Human Regular 100 (units/ Sodium Chloride) 100 mls @ 3 mls/hr IVPB TITR [facility]; Protocol Last Titration: 10/19/18 07:00 Dose: 5 units/hr, 5 mls/hr Potassium Chloride 10 meq/ (Dextrose/Lactated Ringer's) 1,005 mls @ 200 mls/hr IVPB Q5H [facility] Stop: 10/19/18 14:59 Last Admin: 10/19/18 09:02 Dose: 200 mls/hr Morphine Sulfate (Morphine Sulfate) 1 mg IVPUSH Q5H PRN PRN Reason: PAIN LEVEL 6-10 Last Admin: 10/18/18 23:45 Dose: 1 mg Mupirocin (Bactroban Ointment (For Decolonization) -) 1 applic NS BID [facility] Stop: 10/23/18 21:59 Last Admin: 10/18/18 21:42 Dose: 1 applic Nicotine (Nicoderm Patch -) 21 mg TD DAILY [facility] Last Admin: 10/19/18 09:45 Dose: 21 mg ASSESSMENT AND PLAN: Diabetic Ketoacidosis Severe Metabolic Acidosis improving Hypothyroidism Noncompliance - continue IVF - insulin gtt - monitor anion gap - monitor BGM q1h, BMP q4h while on insulin gtt - PO as tolerated - DVT prophylaxis - can monitor on floor when off insulin gtt
[2018-10-19] MEDS ORDERED: SODIUM CHLORIDE 1,000 ML IV SCH ×2 (10:30→12:52)
[2018-10-19 10:38] LABS: ARTERIAL BLD GAS O2 SATURATION 98.5 % (90-98.9); ARTERIAL BLOOD GAS BASE EXCESS -8.4 meq/l (-2-2); ARTERIAL BLOOD GAS PCO2 29.8 mmHg (35-45); ARTERIAL BLOOD GAS pH 7.34 (7.35-7.45)
[2018-10-19] MEDS ORDERED: PT OWN MED DRAWER 7, Y5N ONE (10:39)
[2018-10-19] MEDS ORDERED: POTASSIUM CHLORIDE TABS 20 MEQ TABLET.ER (FP) PO ONE (10:45)
[2018-10-19] MEDS ORDERED: POTASSIUM PHOSPHATE 15 MM in DEXTROSE 5%-WATER - 250 ML IVPB ONE (10:45)
[2018-10-19] MEDS ORDERED: ACETAMINOPHEN 1000 MG/100 ML VIAL (NON FORMULARY) IVPB ONE (10:45)
[2018-10-19] MEDS ORDERED: INSULIN (LEVEMIR) 100 UNITS/ML UNITS SQ ONE (10:45)
[2018-10-19 10:49] LABS: ALLENS TEST POSITIVE
[2018-10-19] MEDS ORDERED: INSULIN SLIDING SCALE (NOVOLOG) 1 VIAL SQ SCH ×2 (11:00→16:30)
[2018-10-19] MEDS ORDERED: INSULIN (NOVOLOG) ASPART 100 UNITS/ML 10ML VIAL ONE (11:08)
[2018-10-19 11:15] VITALS: BMI 23.3
[2018-10-19] MEDS: MUPIROCIN 2% TOPICAL OINTMENT FOR DECOLONIZATION NS SCH (11:20)
[2018-10-19] MEDS ORDERED: MORPHINE SULFATE 2 MG/ML VIAL IVPUSH PRN (12:52)
--- NOTE | 2018-10-19 12:57 | EKG ---
Test Reason : Blood Pressure : / mmHG Vent. Rate : 100 BPM Atrial Rate : 100 BPM P-R Int : 134 ms QRS Dur : 092 ms QT Int : 372 ms P-R-T Axes : 069 069 079 degrees QTc Int : 479 ms NORMAL SINUS RHYTHM MODERATE VOLTAGE CRITERIA FOR LVH, MAY BE NORMAL VARIANT NONSPECIFIC ST ABNORMALITY ABNORMAL ECG Confirmed by LULI PACKER MD ([id number]) on 10/19/2018 12:56:31 PM Referred By: Confirmed By:LULI PACKER MD
--- NOTE | 2018-10-19 20:00 | PN ---
Progress Note (short form) - Note Progress Note: SUBJECTIVE: Feeling better - no complaints. Some dysuria s/p ramesh placement/ removal. OBJECTIVE: Afebrile, Hemodynamically Stable. Last Vital Signs Temp Pulse Resp BP Pulse Ox 98 F 87 21 H 119/69 100 10/19/18 19:00 10/19/18 19:00 10/19/18 19:00 10/19/18 19:00 10/19/18 09:00 HEENT - Atraumatic, Normocephalic Heart - S1, S2, RRR Lungs - clear to auscultation Abdomen - generalized tenderness, Soft. No guarding or rebound. Bowel Sounds normal. Extremities - No edema, no calf tenderness. Neuro - AAO x 3. Tone/Power normal all 4 extremities. Laboratory Results - last 24 hr 10/18/18 10/18/18 10/18/18 20:31 21:00 22:02 WBC RBC Hgb Hct MCV MCH MCHC RDW Plt Count MPV Anticoagulation Therapy Puncture Site Patient Temperature ABG pH ABG pCO2 at Pt Temp ABG pO2 at Pt Temp ABG HCO3 ABG O2 Sat (Measured) ABG O2 Content ABG Base Excess Vinny Test O2 Delivery Device Oxygen Flow Rate Vent Mode Vent Rate Mechanical Rate PEEP Pressure Support Vent Sodium 138 Potassium 5.0 Chloride 112 H Carbon Dioxide 4 L Anion Gap 22 H BUN 11 Creatinine 1.0 Creat Clearance w eGFR > 60 POC Glucometer 286 208 Random Glucose 249 H Calcium 7.1 L Phosphorus Magnesium 10/18/18 10/18/18 10/19/18 22:51 23:50 00:00 WBC RBC Hgb Hct MCV MCH MCHC RDW Plt Count MPV Anticoagulation Therapy Cancelled Puncture Site Cancelled Patient Temperature Cancelled ABG pH Cancelled ABG pCO2 at Pt Temp Cancelled ABG pO2 at Pt Temp Cancelled ABG HCO3 Cancelled ABG O2 Sat (Measured) Cancelled ABG O2 Content Cancelled ABG Base Excess Cancelled Vinny Test Cancelled O2 Delivery Device Cancelled Oxygen Flow Rate Cancelled Vent Mode Cancelled Vent Rate Cancelled Mechanical Rate Cancelled PEEP Cancelled Pressure Support Vent Cancelled Sodium Potassium Chloride Carbon Dioxide Anion Gap BUN Creatinine Creat Clearance w eGFR POC Glucometer 189 207 Random Glucose Calcium Phosphorus Magnesium 10/19/18 10/19/18 10/19/18 01:00 01:24 02:30 WBC RBC Hgb Hct MCV MCH MCHC RDW Plt Count MPV Anticoagulation Therapy Puncture Site Left radial Patient Temperature ABG pH 7.21 L* D ABG pCO2 at Pt Temp 19.1 L* D ABG pO2 at Pt Temp 107.0 H D ABG HCO3 7.4 L* ABG O2 Sat (Measured) 98.1 ABG O2 Content 16.4 ABG Base Excess -19.1 L* Vinny Test Positive O2 Delivery Device Room air Oxygen Flow Rate No Vent Mode Vent Rate Mechanical Rate PEEP 0.0 Pressure Support Vent Sodium 136 Potassium 4.1 Chloride 110 H Carbon Dioxide 9 L Anion Gap 18 H BUN 8 Creatinine 1.1 Creat Clearance w eGFR 57.56 POC Glucometer 285 Random Glucose 237 H Calcium 7.3 L Phosphorus Magnesium 10/19/18 10/19/18 10/19/18 02:40 04:16 05:10 WBC 17.2 H RBC 4.19 Hgb 12.6 Hct 38.3 MCV 91.6 MCH 30.1 MCHC 32.8 RDW 13.0 Plt Count 231 D MPV 8.5 Anticoagulation Therapy Puncture Site Patient Temperature ABG pH ABG pCO2 at Pt Temp ABG pO2 at Pt Temp ABG HCO3 ABG O2 Sat (Measured) ABG O2 Content ABG Base Excess Vinny Test O2 Delivery Device Oxygen Flow Rate Vent Mode Vent Rate Mechanical Rate PEEP Pressure Support Vent Sodium Potassium Chloride Carbon Dioxide Anion Gap BUN Creatinine Creat Clearance w eGFR POC Glucometer 372 322 Random Glucose Calcium Phosphorus Magnesium 10/19/18 10/19/18 10/19/18 05:10 05:22 06:18 WBC RBC Hgb Hct MCV MCH MCHC RDW Plt Count MPV Anticoagulation Therapy Puncture Site Patient Temperature ABG pH ABG pCO2 at Pt Temp ABG pO2 at Pt Temp ABG HCO3 ABG O2 Sat (Measured) ABG O2 Content ABG Base Excess Vinny Test O2 Delivery Device Oxygen Flow Rate Vent Mode Vent Rate Mechanical Rate PEEP Pressure Support Vent Sodium 135 L Potassium 3.8 Chloride 110 H Carbon Dioxide 13 L Anion Gap 13 BUN 8 Creatinine 1.1 Creat Clearance w eGFR 57.56 POC Glucometer 255 262 Random Glucose 288 H Calcium 7.5 L Phosphorus 0.8 L* Magnesium 1.6 L 10/19/18 10/19/18 10/19/18 08:11 09:20 09:38 WBC RBC Hgb Hct MCV MCH MCHC RDW Plt Count MPV Anticoagulation Therapy Puncture Site Patient Temperature ABG pH ABG pCO2 at Pt Temp ABG pO2 at Pt Temp ABG HCO3 ABG O2 Sat (Measured) ABG O2 Content ABG Base Excess Vinny Test O2 Delivery Device Oxygen Flow Rate Vent Mode Vent Rate Mechanical Rate PEEP Pressure Support Vent Sodium 138 Potassium 3.5 Chloride 109 H Carbon Dioxide 16 L Anion Gap 12 BUN 7 Creatinine 1.0 Creat Clearance w eGFR > 60 POC Glucometer 238 200 Random Glucose 208 H Calcium 7.8 L Phosphorus Magnesium 10/19/18 10/19/18 10/19/18 10:25 11:15 17:01 WBC RBC Hgb Hct MCV MCH MCHC RDW Plt Count MPV Anticoagulation Therapy Puncture Site Left radial Patient Temperature ABG pH 7.34 L ABG pCO2 at Pt Temp 29.8 L D ABG pO2 at Pt Temp 103.0 H ABG HCO3 15.7 L ABG O2 Sat (Measured) 98.5 ABG O2 Content 17.0 ABG Base Excess -8.4 L Vinny Test Positive O2 Delivery Device Room air Oxygen Flow Rate 21% Vent Mode Vent Rate Mechanical Rate PEEP Pressure Support Vent Sodium Potassium Chloride Carbon Dioxide Anion Gap BUN Creatinine Creat Clearance w eGFR POC Glucometer 172 188 Random Glucose Calcium Phosphorus Magnesium Current Medications Generic Name Dose Route Start Last Admin Trade Name Freq PRN Reason Stop Dose Admin Heparin Sodium (Porcine) 5,000 unit 10/19/18 14:00 10/19/18 15:00 Heparin - SQ Not Given TID [facility] Sodium Chloride 1,000 mls @ 100 mls/hr 10/19/18 12:52 Normal Saline - IV ASDIR [facility] Insulin Aspart 1 vial 10/19/18 16:30 10/19/18 17:03 Novolog Vial Sliding Scale - SQ 2 units ACHS [facility] Administration Protocol Insulin Detemir 28 units 10/19/18 22:00 Levemir Vial SQ HS ISI Morphine Sulfate 1 mg 10/19/18 12:52 Morphine Sulfate IVPUSH Q5H PRN PAIN LEVEL 6-10 Nicotine 21 mg 10/20/18 10:00 Nicoderm Patch - TD DAILY [facility] ASSESSMENT AND PLAN: 33 year old female with history of DM 2 (follows with Dr. Matamoros, Depression, Anxiety, Hypothyroidism, presents with 3 day history of nausea, vomiting (non- bloody, non-bilious), abdominal discomfort, dizziness, hyperglycemia since running out of her long-acting insulin several days ago. No fever/chills/cough/ sputum/dysuria/hematuria/diarrhea/fever/chills. 1. Severe DKA likely secondary to Insulin non-compliance. Normally on Levemir 28 units qhs and Novolog sliding scale ac, however patient ran out of long-acting insulin. pH 6.95, Bicarb 5, Anion Gap 27 on admission, Ketone positive Patient transitioned off Insulin drip after closing of AG and repeat ABG with pH 7.34 Tolerating oral intake. Continue gentle fluid resuscitation. Regular BMP checks with appropriate electrolyte replacement. No evidence of infective etiology currently - CXR negative. Urine Culture pending. 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 Hypothyroidism - TSH 0.25 - Levothyroxine held. Dr. Matamoros consulted. 3. Smoker - Nicotine patch prescribed. Counselling deferred until clinically improved. 4. Hypomagnesemia/Hypophosphatemia - repleted. Will monitor. DVT Px - Heparin SQ GI Px - PPI Visit type - Emergency Visit Emergency Visit: Yes ED Registration Date: 10/18/18 Care time: The patient presented to the Emergency Department on the above date and was hospitalized for further evaluation of their emergent condition. - New Patient This patient is new to me today: No - Critical Care Critical Care patient: No - Discharge Referral Referred to [facility] No
[2018-10-19] MEDS ORDERED: CHLORHEXIDINE GLUCONATE 4% CLEANSER FOR DECOLONIZATION TP SCH (22:00)
[2018-10-19] MEDS ORDERED: MUPIROCIN 2% TOPICAL OINTMENT FOR DECOLONIZATION NS SCH (22:00)
[2018-10-19] MEDS ORDERED: INSULIN (LEVEMIR) 100 UNITS/ML UNITS SQ SCH ×2 (22:00)
--- NOTE | 2018-10-19 22:08 | CONSULT ---
Consult Consult Specialty:: endocrine Referred by:: montrell cleaning md Reason for Consultation:: dm type 1 - History of Present Illness Chief Complaint: high sugar History of Present Illness: 33 yo f w/ PMH type 1 dm,IDDM w/ multiple episodes of DKA, depression, hypothyroidism who comes into the ED c/o a 1 day hx of nausea, vomiting and abdominal pain. she,began to experience nausea and vomiting, having approx. 8- 10 episodes of NBNB emesis. These ssx were associated with abdominal pain. Patient states that her blood sugars have been elevated despite taking insulin.she denies fever chills,cough chest pain. - Past Medical History ...LMP: 10/03/18 Infectious Disease: Yes: Other Psych: Yes: Anxiety, Depression Endocrine: Yes: Diabetes Mellitus - Past Surgical History Past Surgical History: Yes: - Alcohol/Substance Use Hx Alcohol Use: No - Smoking History Smoking history: Current every day smoker Have you smoked in the past 12 months: Yes Aproximately how many cigarettes per day: 20 - Social History ADL: Independent Home Medications - Allergies Allergies/Adverse Reactions: Allergies Allergy/AdvReac Type Severity Reaction Status Date / Time No Known Allergies Allergy Verified 08/18/18 23:31 - Home Medications Home Medications: Ambulatory Orders Gabapentin 300 mg PO TID 08/19/18 Levothyroxine [Synthroid -] 125 mcg PO DAILY@0700 08/19/18 Pantoprazole Sodium 40 mg PO DAILY 08/19/18 Insulin (Levemir) [Levemir Vial] 28 units SQ HS #1 vial 08/22/18 Insulin Sliding Scale [Novolog Vial Sliding Scale -] 1 vial SQ TIDAC units Nicotine Patch [Nicoderm Patch -] 21 mg TD DAILY patch 08/22/18 levoFLOXacin [Levaquin -] 500 mg PO DAILY 5 Days #5 tablet 08/22/18 Family Disease History - Family Disease History Family Disease History: Diabetes: Grandparent Review of Systems - Review of Systems Constitutional: reports: Lethargy, Weakness Eyes: reports: No Symptoms HENT: reports: Difficult Swallowing Neck: reports: No Symptoms Cardiovascular: reports: Shortness of Breath Respiratory: reports: Exercise Intolerance Gastrointestinal: reports: Bloating Genitourinary: reports: No Symptoms Breasts: reports: No Symptoms Reported Musculoskeletal: reports: Muscle Weakness Neurological: reports: No Symptoms Endocrine: reports: No Symptoms Physical Exam Vital Signs: Vital Signs Temperature 98 F 10/19/18 19:00 Pulse Rate 87 10/19/18 19:00 Respiratory Rate 21 H 10/19/18 19:00 Blood Pressure 119/69 10/19/18 19:00 O2 Sat by Pulse Oximetry (%) 100 10/19/18 09:00 Constitutional: Yes: Calm Eyes: Yes: EOM Intact HENT: Yes: Normocephalic Neck: Yes: Trachea Midline Cardiovascular: Yes: Regular Rate and Rhythm Respiratory: Yes: CTA Bilaterally Gastrointestinal: Yes: Normal Bowel Sounds ...Rectal Exam: Yes: Deferred Renal/: Yes: WNL Breast(s): Yes: WNL Musculoskeletal: Yes: WNL Extremities: Yes: WNL Integumentary: Yes: WNL Neurological: Yes: Alert, Oriented Labs: CBC, BMP 10/19/18 05:10 Problem List - Problems (1) DKA (diabetic ketoacidosis) Code(s): E13.10 - OTH DIABETES MELLITUS WITH KETOACIDOSIS WITHOUT COMA Qualifiers: Diabetes mellitus type: type 1 Diabetes mellitus complication detail: without coma Qualified Code(s): E10.10 - Type 1 diabetes mellitus with ketoacidosis without coma (2) Hyperglycemia Code(s): R73.9 - HYPERGLYCEMIA, UNSPECIFIED (3) New onset type 1 diabetes mellitus, uncontrolled Code(s): E10.65 - TYPE 1 DIABETES MELLITUS WITH HYPERGLYCEMIA (4) Status post delivery Code(s): Z98.89 - OTHER SPECIFIED POSTPROCEDURAL STATES * DO NOT USE * Assessment/Plan Current Active Problems DKA (diabetic ketoacidosis) (Acute) hypothyroidism deondre dehydration Abnormal Lab Results 10/19/18 10/19/18 10/19/18 01:00 02:30 05:10 WBC 17.2 H ABG pH 7.21 L* D ABG pCO2 at Pt Temp 19.1 L* D ABG pO2 at Pt Temp 107.0 H D ABG HCO3 7.4 L* ABG Base Excess -19.1 L* Sodium Chloride 110 H Carbon Dioxide 9 L Anion Gap 18 H Random Glucose 237 H Calcium 7.3 L Phosphorus Magnesium 10/19/18 10/19/18 10/19/18 05:10 09:20 10:25 WBC ABG pH 7.34 L ABG pCO2 at Pt Temp 29.8 L D ABG pO2 at Pt Temp 103.0 H ABG HCO3 15.7 L ABG Base Excess -8.4 L Sodium 135 L Chloride 110 H 109 H Carbon Dioxide 13 L 16 L Anion Gap Random Glucose 288 H 208 H Calcium 7.5 L 7.8 L Phosphorus 0.8 L* Magnesium 1.6 L Laboratory Results - last 24 hr 10/18/18 10/18/18 10/19/18 22:51 23:50 00:00 WBC RBC Hgb Hct MCV MCH MCHC RDW Plt Count MPV Anticoagulation Therapy Cancelled Puncture Site Cancelled Patient Temperature Cancelled ABG pH Cancelled ABG pCO2 at Pt Temp Cancelled ABG pO2 at Pt Temp Cancelled ABG HCO3 Cancelled ABG O2 Sat (Measured) Cancelled ABG O2 Content Cancelled ABG Base Excess Cancelled Vinny Test Cancelled O2 Delivery Device Cancelled Oxygen Flow Rate Cancelled Vent Mode Cancelled Vent Rate Cancelled Mechanical Rate Cancelled PEEP Cancelled Pressure Support Vent Cancelled Sodium Potassium Chloride Carbon Dioxide Anion Gap BUN Creatinine Creat Clearance w eGFR POC Glucometer 189 207 Random Glucose Calcium Phosphorus Magnesium 10/19/18 10/19/18 10/19/18 01:00 01:24 02:30 WBC RBC Hgb Hct MCV MCH MCHC RDW Plt Count MPV Anticoagulation Therapy Puncture Site Left radial Patient Temperature ABG pH 7.21 L* D ABG pCO2 at Pt Temp 19.1 L* D ABG pO2 at Pt Temp 107.0 H D ABG HCO3 7.4 L* ABG O2 Sat (Measured) 98.1 ABG O2 Content 16.4 ABG Base Excess -19.1 L* Vinny Test Positive O2 Delivery Device Room air Oxygen Flow Rate No Vent Mode Vent Rate Mechanical Rate PEEP 0.0 Pressure Support Vent Sodium 136 Potassium 4.1 Chloride 110 H Carbon Dioxide 9 L Anion Gap 18 H BUN 8 Creatinine 1.1 Creat Clearance w eGFR 57.56 POC Glucometer 285 Random Glucose 237 H Calcium 7.3 L Phosphorus Magnesium 10/19/18 10/19/18 10/19/18 02:40 04:16 05:10 WBC 17.2 H RBC 4.19 Hgb 12.6 Hct 38.3 MCV 91.6 MCH 30.1 MCHC 32.8 RDW 13.0 Plt Count 231 D MPV 8.5 Anticoagulation Therapy Puncture Site Patient Temperature ABG pH ABG pCO2 at Pt Temp ABG pO2 at Pt Temp ABG HCO3 ABG O2 Sat (Measured) ABG O2 Content ABG Base Excess Vinny Test O2 Delivery Device Oxygen Flow Rate Vent Mode Vent Rate Mechanical Rate PEEP Pressure Support Vent Sodium Potassium Chloride Carbon Dioxide Anion Gap BUN Creatinine Creat Clearance w eGFR POC Glucometer 372 322 Random Glucose Calcium Phosphorus Magnesium 10/19/18 10/19/18 10/19/18 05:10 05:22 06:18 WBC RBC Hgb Hct MCV MCH MCHC RDW Plt Count MPV Anticoagulation Therapy Puncture Site Patient Temperature ABG pH ABG pCO2 at Pt Temp ABG pO2 at Pt Temp ABG HCO3 ABG O2 Sat (Measured) ABG O2 Content ABG Base Excess Vinny Test O2 Delivery Device Oxygen Flow Rate Vent Mode Vent Rate Mechanical Rate PEEP Pressure Support Vent Sodium 135 L Potassium 3.8 Chloride 110 H Carbon Dioxide 13 L Anion Gap 13 BUN 8 Creatinine 1.1 Creat Clearance w eGFR 57.56 POC Glucometer 255 262 Random Glucose 288 H Calcium 7.5 L Phosphorus 0.8 L* Magnesium 1.6 L 10/19/18 10/19/18 10/19/18 08:11 09:20 09:38 WBC RBC Hgb Hct MCV MCH MCHC RDW Plt Count MPV Anticoagulation Therapy Puncture Site Patient Temperature ABG pH ABG pCO2 at Pt Temp ABG pO2 at Pt Temp ABG HCO3 ABG O2 Sat (Measured) ABG O2 Content ABG Base Excess Vinny Test O2 Delivery Device Oxygen Flow Rate Vent Mode Vent Rate Mechanical Rate PEEP Pressure Support Vent Sodium 138 Potassium 3.5 Chloride 109 H Carbon Dioxide 16 L Anion Gap 12 BUN 7 Creatinine 1.0 Creat Clearance w eGFR > 60 POC Glucometer 238 200 Random Glucose 208 H Calcium 7.8 L Phosphorus Magnesium 10/19/18 10/19/18 10/19/18 10:25 11:15 17:01 WBC RBC Hgb Hct MCV MCH MCHC RDW Plt Count MPV Anticoagulation Therapy Puncture Site Left radial Patient Temperature ABG pH 7.34 L ABG pCO2 at Pt Temp 29.8 L D ABG pO2 at Pt Temp 103.0 H ABG HCO3 15.7 L ABG O2 Sat (Measured) 98.5 ABG O2 Content 17.0 ABG Base Excess -8.4 L Vinny Test Positive O2 Delivery Device Room air Oxygen Flow Rate 21% Vent Mode Vent Rate Mechanical Rate PEEP Pressure Support Vent Sodium Potassium Chloride Carbon Dioxide Anion Gap BUN Creatinine Creat Clearance w eGFR POC Glucometer 172 188 Random Glucose Calcium Phosphorus Magnesium plan: bgm achs levemir dose titrate levemir 28 units hs Current Medications Generic Name Dose Route Start Last Admin Trade Name Freq PRN Reason Stop Dose Admin Heparin Sodium (Porcine) 5,000 unit 10/19/18 14:00 10/19/18 15:00 Heparin - SQ Not Given TID ISI Sodium Chloride 1,000 mls @ 100 mls/hr 10/19/18 12:52 Normal Saline - IV ASDIR ISI Insulin Aspart 1 vial 10/19/18 16:30 10/19/18 17:03 Novolog Vial Sliding Scale - SQ 2 units ACHS ISI Administration Protocol Insulin Detemir 28 units 10/19/18 22:00 Levemir Vial SQ HS ISI Morphine Sulfate 1 mg 10/19/18 12:52 Morphine Sulfate IVPUSH Q5H PRN PAIN LEVEL 6-10 Nicotine 21 mg 10/20/18 10:00 Nicoderm Patch - TD DAILY ISI Pantoprazole Sodium 40 mg 10/19/18 20:30 Protonix - PO DAILY ISI
[2018-10-19] MEDS: PANTOPRAZOLE 40 MG TABLET (FP) PO SCH (22:21)
[2018-10-19 22:59] LABS: ANION GAP 14 MMOL/L (8-16); BLOOD UREA NITROGEN 7 mg/dL (7-18); CHLORIDE 104 mmol/L (98-107); CO2 14 mmol/L (21-32); CREATININE 0.7 mg/dL (0.55-1.3); MAGNESIUM 1.6 mg/dL (1.8-2.4); SODIUM 131 mmol/L (136-145)
[2018-10-19 23:00] LABS: POTASSIUM 6.7 mmol/L (3.5-5.1)
[2018-10-19 23:01] LABS: CALCIUM 6.7 mg/dL (8.5-10.1); PHOSPHOROUS > 9.0 mg/dL (2.5-4.9)
[2018-10-19 23:02] LABS: GLUCOSE,RANDOM 445 mg/dL (74-106)
[2018-10-20 01:05] LABS: ANION GAP 13 MMOL/L (8-16); BLOOD UREA NITROGEN 8 mg/dL (7-18); CALCIUM 7.9 mg/dL (8.5-10.1); CHLORIDE 104 mmol/L (98-107); CO2 18 mmol/L (21-32); CREATININE 0.8 mg/dL (0.55-1.3); GLUCOSE,RANDOM 286 mg/dL (74-106); MAGNESIUM 2.1 mg/dL (1.8-2.4); PHOSPHOROUS 1.2 mg/dL (2.5-4.9); POTASSIUM 3.5 mmol/L (3.5-5.1); SODIUM 135 mmol/L (136-145)
[2018-10-20] MEDS: INSULIN SLIDING SCALE (NOVOLOG) 1 VIAL SQ SCH ×2 (06:36→11:47)
[2018-10-20] MEDS: HEPARIN NA (PORCINE) 5,000 UNITS/ML 1ML VIAL SQ SCH ×2 (06:37→15:00)
[2018-10-20 08:27] LABS: HEMATOCRIT 38.3 % (32.4-45.2); HEMOGLOBIN 13.1 GM/dL (10.7-15.3); MCHC 34.2 g/dl (32.0-36.0); MEAN CELL VOLUME 90.5 fl (80-96); MEAN PLT VOLUME 8.3 fl (7.5-11.1); PLATELET COUNT 214 K/MM3 (134-434); RBC 4.23 M/mm3 (3.60-5.2); RDW 12.8 % (11.6-15.6); WHITE BLOOD COUNT 7.2 K/mm3 (4.0-10.0)
[2018-10-20 09:22] LABS: ALK PHOS 60 U/L (45-117); ANION GAP 8 MMOL/L (8-16); BILIRUBIN,TOTAL 0.8 mg/dL (0.2-1); BLOOD UREA NITROGEN 6 mg/dL (7-18); CALCIUM 7.9 mg/dL (8.5-10.1); CHLORIDE 109 mmol/L (98-107); CO2 22 mmol/L (21-32); CREATININE 0.5 mg/dL (0.55-1.3); GLUCOSE,RANDOM 68 mg/dL (74-106); MAGNESIUM 2.2 mg/dL (1.8-2.4); POTASSIUM 3.3 mmol/L (3.5-5.1); SGOT/AST 17 U/L (15-37); SGPT/ALT 18 U/L (13-61); SODIUM 139 mmol/L (136-145)
[2018-10-20 09:32] LABS: PHOSPHOROUS 1.1 mg/dL (2.5-4.9)
[2018-10-20] MEDS: PANTOPRAZOLE 40 MG TABLET (FP) PO SCH (09:32)
[2018-10-20] MEDS ORDERED: POTASSIUM CHLORIDE TABS 20 MEQ TABLET.ER (FP) PO ONE (10:00)
[2018-10-20] MEDS ORDERED: NICOTINE 21 MG/24 HOURS TOPICAL PATCH TD SCH (10:00)
[2018-10-20] MEDS ORDERED: POTASSIUM PHOSPHATE 30 MM in SODIUM CHLORIDE 500 ML IVPB ONE (11:00)
[2018-10-20 11:07] LABS: URINE APPEARANCE SLCLOUDY; URINE BILIRUBIN NEGATIVE (<2.0 mg/dL); URINE COLOR LTYELLOW; URINE GLUCOSE (UA) NEGATIVE (NEGATIVE); URINE KETONE TRACE (NEGATIVE); URINE LEUK ESTERASE TRACE (NEGATIVE); URINE NITRITE NEGATIVE (NEGATIVE); URINE PROTEIN NEGATIVE (NEGATIVE); URINE UROBILINOGEN NEGATIVE mg/dL (0.2-1.0)
[2018-10-20 11:25] LABS: EPI CELLS RARE /HPF (FEW)
[2018-10-20] MEDS ORDERED: INSULIN (NOVOLOG) ASPART 100 UNITS/ML 10ML VIAL ONE (11:45)
--- NOTE | 2018-10-20 14:36 | DS ---
Physical Exam: SUBJECTIVE: Patient seen and examined OBJECTIVE: Vital Signs Period Temp Pulse Resp BP Sys/Irwin Pulse Ox Last 24 Hr 98 F-99.1 F 77-92 20-22 106-122/66-72 100 PHYSICAL EXAM GENERAL: The patient is awake, alert, and fully oriented, in no acute distress. HEAD: Normal with no signs of trauma. EYES: PERRL, extraocular movements intact, sclera anicteric, conjunctiva clear. ENT: Ears normal, nares patent, oropharynx clear without exudates, moist mucous membranes. NECK: Trachea midline, full range of motion, supple. LUNGS: Breath sounds equal, clear to auscultation bilaterally, no wheezes, no crackles, no accessory muscle use. HEART: Regular rate and rhythm, S1, S2 without murmur, rub or gallop. ABDOMEN: Soft, nontender, nondistended, normoactive bowel sounds, no guarding, no rebound, no hepatosplenomegaly, no masses. EXTREMITIES: 2+ pulses, warm, well-perfused, no edema. NEUROLOGICAL: Cranial nerves II through XII grossly intact. Normal speech, gait not observed. PSYCH: Normal mood, normal affect. SKIN: Warm, dry, normal turgor, no rashes or lesions noted. LABS Laboratory Results - last 24 hr 10/19/18 10/19/18 10/19/18 07:30 17:01 20:55 WBC RBC Hgb Hct MCV MCH MCHC RDW Plt Count MPV Sodium 131 L Potassium 6.7 H* Chloride 104 Carbon Dioxide 14 L Anion Gap 14 BUN 7 Creatinine 0.7 Creat Clearance w eGFR > 60 POC Glucometer 279 188 Random Glucose 445 H* Calcium 6.7 L* Phosphorus > 9.0 H* Magnesium 1.6 L Total Bilirubin AST ALT Alkaline Phosphatase Total Protein Albumin Urine Color Urine Appearance Urine pH Ur Specific [place] Urine Protein Urine Glucose (UA) Urine Ketones Urine Blood Urine Nitrite Urine Bilirubin Urine Urobilinogen Ur Leukocyte Esterase Urine WBC (Auto) Urine RBC (Auto) Ur Epithelial Cells 10/19/18 10/20/18 10/20/18: 00:10 06:33 WBC RBC Hgb Hct MCV MCH MCHC RDW Plt Count MPV Sodium 135 L Potassium 3.5 Chloride 104 Carbon Dioxide 18 L Anion Gap 13 BUN 8 Creatinine 0.8 Creat Clearance w eGFR > 60 POC Glucometer 336 92 Random Glucose 286 H Calcium 7.9 L Phosphorus 1.2 L Magnesium 2.1 Total Bilirubin AST ALT Alkaline Phosphatase Total Protein Albumin Urine Color Urine Appearance Urine pH Ur Specific [place] Urine Protein Urine Glucose (UA) Urine Ketones Urine Blood Urine Nitrite Urine Bilirubin Urine Urobilinogen Ur Leukocyte Esterase Urine WBC (Auto) Urine RBC (Auto) Ur Epithelial Cells 10/20/18 10/20/18 10/20/18 07:00 07:00 10:20 WBC 7.2 RBC 4.23 Hgb 13.1 Hct 38.3 MCV 90.5 MCH 31.0 MCHC 34.2 RDW 12.8 Plt Count 214 MPV 8.3 Sodium 139 Potassium 3.3 L Chloride 109 H Carbon Dioxide 22 Anion Gap 8 BUN 6 L Creatinine 0.5 L Creat Clearance w eGFR > 60 POC Glucometer Random Glucose 68 L Calcium 7.9 L Phosphorus 1.1 L* Magnesium 2.2 Total Bilirubin 0.8 AST 17 ALT 18 Alkaline Phosphatase 60 Total Protein 6.0 L Albumin 3.0 L Urine Color Ltyellow Urine Appearance Slcloudy Urine pH 6.0 Ur Specific [place] 1.003 L Urine Protein Negative Urine Glucose (UA) Negative Urine Ketones Trace H Urine Blood 3+ H Urine Nitrite Negative Urine Bilirubin Negative Urine Urobilinogen Negative Ur Leukocyte Esterase Trace Urine WBC (Auto) 9 Urine RBC (Auto) <1 Ur Epithelial Cells Rare 10/20/18 11:43 WBC RBC Hgb Hct MCV MCH MCHC RDW Plt Count MPV Sodium Potassium Chloride Carbon Dioxide Anion Gap BUN Creatinine Creat Clearance w eGFR POC Glucometer 165 Random Glucose Calcium Phosphorus Magnesium Total Bilirubin AST ALT Alkaline Phosphatase Total Protein Albumin Urine Color Urine Appearance Urine pH Ur Specific [place] Urine Protein Urine Glucose (UA) Urine Ketones Urine Blood Urine Nitrite Urine Bilirubin Urine Urobilinogen Ur Leukocyte Esterase Urine WBC (Auto) Urine RBC (Auto) Ur Epithelial Cells HOSPITAL COURSE: Date of Admission:10/18/18 Date of Discharge: 10/20/18 Discharge Summary Reason For Visit: HYPERGLYCEMIA,DIABETIC KETOACIDOSIS Current Active Problems DKA (diabetic ketoacidosis) (Acute) Hyperglycemia (Acute) Condition: Improved - Instructions Diet, Activity, Other Instructions: You were hospitalized for your DKA. It is very important to take your long- acting and short-acting insulin as prescribed. You were also found to have a possible urinary tract infection. A urine culture was sent to the lab, but will be pending for the next day. We will follow-up the result and call your with possible further instructions. MEDICATIONS Please take your Levemir 28units EVERY NIGHT Please take your Novolog sliding scale as below: Sugar level Units given 101-150 2 151-200 3 201-250 5 251-300 6 301-350 8 351-400 10 >400 12 and go to ER/call your primary doctor You were found to have an overactive thyroid number during your admission. As a result we decreased your Levothyroxine to 112mcg daily. You will need a repeat TSH level in 4-6 weeks. For your possible UTI, please take Ciprofloxacin 500mg PO daily for 2 more days. If your culture is positive you will be called with further instructions. Please refrain from smoking and other tobacco products. This can negatively impact your health. If you need help to quit please contact your primary care doctor. Follow-up: Please follow-up with your primary doctor within 1-2 weeks of discharge. --Remember to get a repeat TSH in 4-6 weeks from your primary due to the change in your Levothyroxine Please follow-up with your mandarin speaking nanny within 2 weeks of discharge. Referrals: Fernando Estevez MD [Primary Care Provider] - Cristiane Matamoros MD [Staff Physician] - Disposition: HOME - Home Medications Comprehensive Discharge Medication List: Ambulatory Orders Gabapentin 300 mg PO TID 08/19/18 Pantoprazole Sodium 40 mg PO DAILY 08/19/18 Nicotine Patch [Nicoderm Patch -] 21 mg TD DAILY patch 08/22/18 Alcohol Antiseptic Pads [Alcohol Prep Pads] 1 each TP ACHS #100 med..pad Ciprofloxacin HCl 500 mg PO DAILY #2 tablet 10/20/18 Insulin (Levemir) [Levemir Vial] 28 units SQ HS #1 vial 10/20/18 Insulin Sliding Scale [Novolog Vial Sliding Scale -] See Protocol SQ ACHS #1 pen 10/20/18 Levothyroxine [Synthroid -] 112 mcg PO DAILY #30 tablet 10/20/18 Pen Needle, Diabetic [Pen [place]] 1 each MC ACHS #100 dis.needle 10/20/18 Sodium,Potassium Phosphates [Phos-Nak Packet] 1 each PO DAILY #1 powd.pack 10/20 - Discharge Referral Referred to [facility] No
[2018-10-20] MEDS ORDERED: NAPH,MB-DB/K PH,MBDB POWDER PACKET PO ONE (14:48)
[2018-10-20 15:53] VITALS: BP 114/81; PULSE 90; TEMP 98.2
--- NOTE | 2018-10-20 16:59 | PN ---
Teaching Attending Note Name of Resident: Landon Burt ATTENDING PHYSICIAN STATEMENT I saw and evaluated the patient. I reviewed the resident's note and discussed the case with the resident. I agree with the resident's findings and plan as documented. SUBJECTIVE: Feeling better - no complaints. Some dysuria s/p ramesh placement/ removal. No fever/chills. OBJECTIVE: Afebrile, Hemodynamically Stable. Last Vital Signs Temp Pulse Resp BP Pulse Ox 98.2 F 90 20 114/81 100 10/20/18 15:51 10/20/18 15:51 10/20/18 09:00 10/20/18 15:51 10/19/18 21:00 HEENT - Atraumatic, Normocephalic Heart - S1, S2, RRR Lungs - clear to auscultation Abdomen - generalized tenderness, Soft. No guarding or rebound. Mild suprapubic tenderness. Bowel Sounds normal. Extremities - No edema, no calf tenderness. Neuro - AAO x 3. Tone/Power normal all 4 extremities. Laboratory Results - last 24 hr 10/19/18 10/19/18 10/19/18 07:30 17:01 20:55 WBC RBC Hgb Hct MCV MCH MCHC RDW Plt Count MPV Sodium 131 L Potassium 6.7 H* Chloride 104 Carbon Dioxide 14 L Anion Gap 14 BUN 7 Creatinine 0.7 Creat Clearance w eGFR > 60 POC Glucometer 279 188 Random Glucose 445 H* Calcium 6.7 L* Phosphorus > 9.0 H* Magnesium 1.6 L Total Bilirubin AST ALT Alkaline Phosphatase Total Protein Albumin Urine Color Urine Appearance Urine pH Ur Specific [place] Urine Protein Urine Glucose (UA) Urine Ketones Urine Blood Urine Nitrite Urine Bilirubin Urine Urobilinogen Ur Leukocyte Esterase Urine WBC (Auto) Urine RBC (Auto) Ur Epithelial Cells 10/19/18 10/20/18 10/20/18 22:19 00:10 06:33 WBC RBC Hgb Hct MCV MCH MCHC RDW Plt Count MPV Sodium 135 L Potassium 3.5 Chloride 104 Carbon Dioxide 18 L Anion Gap 13 BUN 8 Creatinine 0.8 Creat Clearance w eGFR > 60 POC Glucometer 336 92 Random Glucose 286 H Calcium 7.9 L Phosphorus 1.2 L Magnesium 2.1 Total Bilirubin AST ALT Alkaline Phosphatase Total Protein Albumin Urine Color Urine Appearance Urine pH Ur Specific [place] Urine Protein Urine Glucose (UA) Urine Ketones Urine Blood Urine Nitrite Urine Bilirubin Urine Urobilinogen Ur Leukocyte Esterase Urine WBC (Auto) Urine RBC (Auto) Ur Epithelial Cells 10/20/18 10/20/18 10/20/18 07:00 07:00 10:20 WBC 7.2 RBC 4.23 Hgb 13.1 Hct 38.3 MCV 90.5 MCH 31.0 MCHC 34.2 RDW 12.8 Plt Count 214 MPV 8.3 Sodium 139 Potassium 3.3 L Chloride 109 H Carbon Dioxide 22 Anion Gap 8 BUN 6 L Creatinine 0.5 L Creat Clearance w eGFR > 60 POC Glucometer Random Glucose 68 L Calcium 7.9 L Phosphorus 1.1 L* Magnesium 2.2 Total Bilirubin 0.8 AST 17 ALT 18 Alkaline Phosphatase 60 Total Protein 6.0 L Albumin 3.0 L Urine Color Ltyellow Urine Appearance Slcloudy Urine pH 6.0 Ur Specific [place] 1.003 L Urine Protein Negative Urine Glucose (UA) Negative Urine Ketones Trace H Urine Blood 3+ H Urine Nitrite Negative Urine Bilirubin Negative Urine Urobilinogen Negative Ur Leukocyte Esterase Trace Urine WBC (Auto) 9 Urine RBC (Auto) <1 Ur Epithelial Cells Rare 10/20/18 11:43 WBC RBC Hgb Hct MCV MCH MCHC RDW Plt Count MPV Sodium Potassium Chloride Carbon Dioxide Anion Gap BUN Creatinine Creat Clearance w eGFR POC Glucometer 165 Random Glucose Calcium Phosphorus Magnesium Total Bilirubin AST ALT Alkaline Phosphatase Total Protein Albumin Urine Color Urine Appearance Urine pH Ur Specific [place] Urine Protein Urine Glucose (UA) Urine Ketones Urine Blood Urine Nitrite Urine Bilirubin Urine Urobilinogen Ur Leukocyte Esterase Urine WBC (Auto) Urine RBC (Auto) Ur Epithelial Cells ASSESSMENT AND PLAN: 33 year old female with history of DM 2 (follows with Dr. Matamoros, Depression, Anxiety, Hypothyroidism, presents with 3 day history of nausea, vomiting (non- bloody, non-bilious), abdominal discomfort, dizziness, hyperglycemia since running out of her long-acting insulin several days ago. No fever/chills/cough/ sputum/dysuria/hematuria/diarrhea/fever/chills. 1. Severe DKA likely secondary to Insulin non-compliance. Normally on Levemir 28 units qhs and Novolog sliding scale ac, however patient ran out of long-acting insulin. pH 6.95, Bicarb 5, Anion Gap 27 on admission, Ketone positive Patient transitioned off Insulin drip after closing of AG and repeat ABG with pH 7.34 Tolerating oral intake. No longer acidotic. Serum glucose controlled. Medically stable for discharge on home Insulin regimen. No evidence of infective etiology currently - CXR negative. Urine Culture negative. Leukocytosis resolved. Advised to follow with patient's siding installer Dr. Matamoros. 2. Hypothyroidism - TSH 0.25 - for discharge on reduced dose Levothyroxine. Follow up with Dr. Matamoros. 3. Smoker - Nicotine patch prescribed. Counseled. 4. Hypokalemia/Hypophosphatemia sec to vomiting/hydration - repleted. Oral intake currently adequate. Medically stable for discharge with Endocrinology follow up.
== END 2018-10-20 16:08 | disposition home or self-care (01) | DRG 420 ==
LOC: JER 12:25 → JERBED 12:52 → JICU 17:22 → J6S 10-19 13:09
DX: E11.10 Type 2 diabetes mellitus with ketoacidosis without coma (principal); F41.8 Other specified anxiety disorders; D64.9 Anemia, unspecified; R00.0 Tachycardia, unspecified; E03.9 Hypothyroidism, unspecified; E87.6 Hypokalemia; E83.42 Hypomagnesemia; E87.2 Acidosis; F32.9 Major depressive disorder, single episode, unspecified; E11.65 Type 2 diabetes mellitus with hyperglycemia; F17.210 Nicotine dependence, cigarettes, uncomplicated; E83.39 Other disorders of phosphorus metabolism; Z91.14 Patient's other noncompliance with medication regimen; Z79.4 Long term (current) use of insulin
CPT/HCPCS: 36415; 36600; 71045-TC-FY; 80048; 80053; 81003; 81015; 82009; 82375; 82803; 82962; 83050; 83605; 83735; 84100; 84439; 84443; 84702; 85025; 85027; 87086; 93005; 93010; 99285-25; J0131; J1644; J7030

== ENCOUNTER 2020-10-08 17:55 | Inpatient (IN) | payer OTHER ==
[2020-10-08] MEDS ORDERED: ONDANSETRON 4 MG/2 ML VIAL ONE (18:13)
[2020-10-08] MEDS ORDERED: SODIUM CHLORIDE 0.9% 500 ML INFUS.BAG IV ONE (18:35)
[2020-10-08 18:58] LABS: BASO % 0.6 % (0-2.0); HEMATOCRIT 38.6 % (32.4-45.2); HEMOGLOBIN 12.4 GM/dL (10.7-15.3); MCH 29.1 pg (25.7-33.7); MCHC 32.1 g/dl (32.0-36.0); MEAN CELL VOLUME 90.7 fl (80-96); MEAN PLT VOLUME 8.8 fl (7.5-11.1); NEUT % 82.4 % (42.8-82.8); PLATELET COUNT 353 K/MM3 (134-434); RBC 4.26 M/mm3 (3.60-5.2); RDW 15.6 % (11.6-15.6); WHITE BLOOD COUNT 8.4 K/mm3 (4.0-10.0)
[2020-10-08 19:06] LABS: CHLORIDE 99 mmol/L (98-107); POTASSIUM 4.1 mmol/L (3.5-5.1); SODIUM 135 mmol/L (136-145)
[2020-10-08 19:11] LABS: ALBUMIN 4.1 g/dl (3.4-5.0); ANION GAP 18 MMOL/L (8-16); BLOOD UREA NITROGEN 14.8 mg/dL (7-18); CO2 18 mmol/L (21-32); GLUCOSE,RANDOM 251 mg/dL (74-106); MAGNESIUM 1.6 mg/dL (1.8-2.4)
[2020-10-08 19:14] LABS: CREATININE 0.5 mg/dL (0.55-1.3); SGOT/AST 35 U/L (15-37); SGPT/ALT 28 U/L (13-61)
[2020-10-08 19:15] LABS: BILIRUBIN,TOTAL 0.7 mg/dL (0.2-1); TOT PROT 7.5 g/dl (6.4-8.2)
[2020-10-08 19:16] LABS: ALK PHOS 78 U/L (45-117)
[2020-10-08] MEDS ORDERED: LACTATED RINGERS SOLUTION 1000 ML INFUS.BAG IV ONE (19:30)
[2020-10-08 20:11] LABS: VENOUS BASE EXCESS -8.3 mmol/L (-2-2); VENOUS O2 SATURATION 90.5 % (70-80); VENOUS PCO2 35.7 mmHg (38-52); VENOUS PH 7.302 (7.310-7.410)
[2020-10-08] MEDS ORDERED: INSULIN REGULAR HUMAN 100 UNITS/ML *VIAL* (FOR IVP) IVPUSH ONE (21:44)
[2020-10-08] MEDS ORDERED: INSULIN REGULAR 100 UNITS in SODIUM CHLORIDE 99 ML IVPB SCH (21:45)
[2020-10-08] MEDS ORDERED: SODIUM CHLORIDE 1,000 ML IV STA (21:57)
[2020-10-08 22:02] LABS: URINE APPEARANCE CLEAR; URINE BILIRUBIN NEGATIVE (NEGATIVE); URINE COLOR YELLOW; URINE GLUCOSE (UA) 3+ (NEGATIVE); URINE KETONE 4+ (NEGATIVE); URINE LEUK ESTERASE NEGATIVE (NEGATIVE); URINE NITRITE NEGATIVE (NEGATIVE); URINE PROTEIN NEGATIVE (NEGATIVE); URINE UROBILINOGEN 0.2 mg/dL (0.2-1.0)
[2020-10-08] MEDS ORDERED: LORazepam 2 MG/ML SDV VIAL IVPUSH ONE (22:32)
[2020-10-08] MEDS ORDERED: POTASSIUM ACETATE IV SCH ×2 (22:45→23:00)
[2020-10-08] MEDS ORDERED: SODIUM CHLORIDE IV SCH ×2 (22:45→23:00)
[2020-10-09] MEDS ORDERED: LORazepam 2 MG/ML SDV VIAL ONE (00:08)
[2020-10-09] MEDS ORDERED: ONDANSETRON 4 MG/2 ML VIAL ONE (03:23)
[2020-10-09] MEDS: ONDANSETRON 4 MG/2 ML VIAL IVPUSH PRN ×2 (03:25→09:50)
[2020-10-09] MEDS: INSULIN SLIDING SCALE (NOVOLOG) 1 VIAL SQ SCH ×5 (05:19→21:05)
[2020-10-09] MEDS: GABAPENTIN 300 MG CAPSULE PO SCH ×3 (05:20→21:05)
[2020-10-09] MEDS: ACETAMINOPHEN 325 MG TABLET (FP) PO PRN ×2 (05:20→20:41)
[2020-10-09] MEDS: LEVOTHYROXINE NA 112 MCG TABLET (FP) PO SCH (06:59)
[2020-10-09] MEDS ORDERED: INSULIN SLIDING SCALE (NOVOLOG) 1 VIAL SQ SCH (07:00)
[2020-10-09 08:30] LABS: ARTERIAL BLD GAS O2 SATURATION 97.3 mmHg (95-98); ARTERIAL BLOOD GAS BASE EXCESS -12.2 mmol/L (-2-2); ARTERIAL BLOOD GAS PO2 102.3 mmHg (80-100)
[2020-10-09 08:33] LABS: ALLENS TEST POSITIVE
[2020-10-09 08:34] LABS: HEMOGLOBIN 10.9 GM/dL (10.7-15.3); MCH 29.6 pg (25.7-33.7); MCHC 32.2 g/dl (32.0-36.0); MEAN CELL VOLUME 91.8 fl (80-96); MEAN PLT VOLUME 8.5 fl (7.5-11.1); PLATELET COUNT 318 K/MM3 (134-434); RDW 15.2 % (11.6-15.6); WHITE BLOOD COUNT 15.2 K/mm3 (4.0-10.0)
[2020-10-09 08:37] LABS: POTASSIUM 4.2 mmol/L (3.5-5.1)
[2020-10-09 08:39] LABS: ALBUMIN 3.4 g/dl (3.4-5.0); CALCIUM 8.5 mg/dL (8.5-10.1); MAGNESIUM 1.9 mg/dL (1.8-2.4)
[2020-10-09 08:42] LABS: CREATININE 0.8 mg/dL (0.55-1.3); PHOSPHOROUS 2.1 mg/dL (2.5-4.9)
[2020-10-09 08:44] LABS: BILIRUBIN,TOTAL 0.7 mg/dL (0.2-1); TOT PROT 6.8 g/dl (6.4-8.2)
[2020-10-09 08:48] VITALS: BMI 26.1
[2020-10-09] MEDS ORDERED: FLU VACCINE (FLULAVAL) PF 60 MCG/0.5 ML SYRINGE 2020-2021 IM ONE (09:00)
[2020-10-09] MEDS ORDERED: SODIUM CHLORIDE 1,000 ML IV STA (09:17)
[2020-10-09] MEDS ORDERED: INSULIN (LEVEMIR) 100 UNITS/ML UNITS SQ ONE ×2 (09:17→16:39)
[2020-10-09] MEDS ORDERED: DEXTROSE 50%-WATER - 25 GM/50 ML VIAL IVPUSH PRN (09:21)
[2020-10-09] MEDS ORDERED: DEXTROSE 50%-WATER - 25 GM/50 ML VIAL IVPUSH ONE (09:21)
[2020-10-09] MEDS: ENOXAPARIN NA (PORCINE) 40 MG/0.4 ML DISP.SYRIN SQ SCH (09:48)
[2020-10-09] MEDS: NICOTINE 21 MG/24 HOURS TOPICAL PATCH TD SCH (09:50)
[2020-10-09] MEDS: PANTOPRAZOLE 40 MG TABLET PO SCH (09:50)
[2020-10-09] MEDS ORDERED: SODIUM PHOSPHATE - 15 MM in SODIUM CHLORIDE 250 ML IVPB ONE (11:00)
[2020-10-09 13:53] LABS: POTASSIUM 4.4 mmol/L (3.5-5.1)
[2020-10-09 13:58] LABS: CREATININE 0.7 mg/dL (0.55-1.3)
[2020-10-09] MEDS ORDERED: INSULIN (NOVOLOG) ASPART 100 UNITS/ML 10ML VIAL ONE ×2 (16:39→20:26)
[2020-10-09 18:25] LABS: POTASSIUM 4.3 mmol/L (3.5-5.1)
[2020-10-09 18:26] LABS: CALCIUM 8.5 mg/dL (8.5-10.1)
[2020-10-09 18:27] LABS: BLOOD UREA NITROGEN 12.1 mg/dL (7-18)
[2020-10-09 18:30] LABS: CREATININE 0.6 mg/dL (0.55-1.3)
[2020-10-10] MEDS: SODIUM CHLORIDE 0.9%/KCL 20 MEQ/1,000 ML INFUS.BAG IV SCH (03:35)
[2020-10-10] MEDS: GABAPENTIN 300 MG CAPSULE PO SCH ×3 (06:07→21:04)
[2020-10-10] MEDS: LEVOTHYROXINE NA 112 MCG TABLET (FP) PO SCH (06:07)
[2020-10-10] MEDS: INSULIN SLIDING SCALE (NOVOLOG) 1 VIAL SQ SCH ×4 (06:08→21:04)
[2020-10-10] MEDS ORDERED: INSULIN (NOVOLOG) ASPART 100 UNITS/ML 10ML VIAL ONE ×3 (06:36→20:34)
[2020-10-10] MEDS ORDERED: INSULIN (LEVEMIR) 100 UNITS/ML UNITS SQ SCH (07:00)
[2020-10-10 07:41] LABS: BASO % 0.2 % (0-2.0); EOS % 0.1 % (0-4.5); HEMATOCRIT 36.9 % (32.4-45.2); HEMOGLOBIN 11.8 GM/dL (10.7-15.3); LYMPH % 9.9 % (8-40); MCH 29.7 pg (25.7-33.7); MEAN CELL VOLUME 92.6 fl (80-96); MEAN PLT VOLUME 8.9 fl (7.5-11.1); MONO % 5.7 % (3.8-10.2); NEUT % 84.1 % (42.8-82.8); PLATELET COUNT 311 K/MM3 (134-434); RBC 3.99 M/mm3 (3.60-5.2); RDW 15.1 % (11.6-15.6); WHITE BLOOD COUNT 8.9 K/mm3 (4.0-10.0)
[2020-10-10 07:54] LABS: POTASSIUM 3.6 mmol/L (3.5-5.1)
[2020-10-10 07:58] LABS: ALBUMIN 3.2 g/dl (3.4-5.0); BLOOD UREA NITROGEN 9.1 mg/dL (7-18); CALCIUM 8.1 mg/dL (8.5-10.1)
[2020-10-10 07:59] LABS: MAGNESIUM 1.8 mg/dL (1.8-2.4)
[2020-10-10 08:01] LABS: CREATININE 0.8 mg/dL (0.55-1.3); PHOSPHOROUS 2.1 mg/dL (2.5-4.9)
[2020-10-10 08:03] LABS: BILIRUBIN,TOTAL 1.2 mg/dL (0.2-1); TOT PROT 6.4 g/dl (6.4-8.2)
[2020-10-10] MEDS: ENOXAPARIN NA (PORCINE) 40 MG/0.4 ML DISP.SYRIN SQ SCH (09:38)
[2020-10-10] MEDS: NICOTINE 21 MG/24 HOURS TOPICAL PATCH TD SCH (09:39)
[2020-10-10] MEDS: PANTOPRAZOLE 40 MG TABLET PO SCH (09:39)
[2020-10-10] MEDS ORDERED: SODIUM PHOSPHATE - 15 MM in SODIUM CHLORIDE 250 ML IVPB ONE (10:15)
[2020-10-10] MEDS: ACETAMINOPHEN 325 MG TABLET (FP) PO PRN ×2 (11:12→20:42)
[2020-10-10] MEDS ORDERED: PT OWN MED DRAWER 7, Y5N ONE (11:25)
[2020-10-10 11:32] LABS: POTASSIUM 4.3 mmol/L (3.5-5.1)
[2020-10-10 11:55] LABS: CALCIUM 8.4 mg/dL (8.5-10.1)
[2020-10-10 12:05] LABS: CREATININE 0.6 mg/dL (0.55-1.3)
[2020-10-10] MEDS ORDERED: BENZOCAINE/MENTH/CETYLPYRD CL 1 EACH LOZENGE MM PRN (12:23)
[2020-10-10] MEDS ORDERED: INSULIN (LEVEMIR) 100 UNITS/ML UNITS SQ ONE (20:34)
[2020-10-11] MEDS: ONDANSETRON 4 MG/2 ML VIAL IVPUSH PRN (01:35)
[2020-10-11] MEDS: ACETAMINOPHEN 325 MG TABLET (FP) PO PRN ×3 (02:31→21:30)
[2020-10-11] MEDS: SODIUM CHLORIDE 0.9%/KCL 20 MEQ/1,000 ML INFUS.BAG IV SCH ×2 (02:33→14:19)
[2020-10-11] MEDS ORDERED: INSULIN (NOVOLOG) ASPART 100 UNITS/ML 10ML VIAL SQ ONE (03:05)
[2020-10-11] MEDS: LEVOTHYROXINE NA 112 MCG TABLET (FP) PO SCH (06:12)
[2020-10-11] MEDS: GABAPENTIN 300 MG CAPSULE PO SCH ×3 (06:12→21:14)
[2020-10-11] MEDS: INSULIN (LEVEMIR) 100 UNITS/ML UNITS SQ SCH (06:13)
[2020-10-11] MEDS: INSULIN SLIDING SCALE (NOVOLOG) 1 VIAL SQ SCH ×4 (06:15→21:14)
[2020-10-11 08:41] LABS: BASO % 0.3 % (0-2.0); HEMATOCRIT 33.6 % (32.4-45.2); HEMOGLOBIN 10.8 GM/dL (10.7-15.3); LYMPH % 13.8 % (8-40); MCH 29.5 pg (25.7-33.7); MCHC 32.1 g/dl (32.0-36.0); MEAN PLT VOLUME 8.8 fl (7.5-11.1); MONO % 11.7 % (3.8-10.2); NEUT % 74.2 % (42.8-82.8); PLATELET COUNT 262 K/MM3 (134-434); RBC 3.65 M/mm3 (3.60-5.2); RDW 15.2 % (11.6-15.6); WHITE BLOOD COUNT 7.5 K/mm3 (4.0-10.0)
[2020-10-11 09:05] LABS: POTASSIUM 4.3 mmol/L (3.5-5.1)
[2020-10-11 09:10] LABS: BLOOD UREA NITROGEN 7.6 mg/dL (7-18); CALCIUM 7.9 mg/dL (8.5-10.1); MAGNESIUM 1.8 mg/dL (1.8-2.4)
[2020-10-11 09:13] LABS: CREATININE 0.7 mg/dL (0.55-1.3)
[2020-10-11 09:15] LABS: TOT PROT 5.9 g/dl (6.4-8.2)
[2020-10-11] MEDS: PANTOPRAZOLE 40 MG TABLET PO SCH (10:51)
[2020-10-11] MEDS ORDERED: METOCLOPRAMIDE HCL INJECTION 10 MG/2 ML VIAL IVPUSH PRN (11:03)
[2020-10-11] MEDS ORDERED: METOCLOPRAMIDE HCL 10 MG TABLET (FP) PO SCH (11:15)
[2020-10-11] MEDS: ENOXAPARIN NA (PORCINE) 40 MG/0.4 ML DISP.SYRIN SQ SCH (12:29)
[2020-10-11] MEDS: NICOTINE 21 MG/24 HOURS TOPICAL PATCH TD SCH (12:29)
[2020-10-12] MEDS: ACETAMINOPHEN 325 MG TABLET (FP) PO PRN (05:29)
[2020-10-12] MEDS: INSULIN (LEVEMIR) 100 UNITS/ML UNITS SQ SCH ×2 (06:39→21:06)
[2020-10-12] MEDS: LEVOTHYROXINE NA 112 MCG TABLET (FP) PO SCH (06:39)
[2020-10-12] MEDS: GABAPENTIN 300 MG CAPSULE PO SCH ×3 (06:39→21:06)
[2020-10-12] MEDS: INSULIN SLIDING SCALE (NOVOLOG) 1 VIAL SQ SCH ×4 (06:40→21:06)
[2020-10-12] MEDS ORDERED: INSULIN (LEVEMIR) 100 UNITS/ML UNITS SQ SCH ×2 (07:30→11:00)
[2020-10-12 08:18] LABS: BASO % 0.5 % (0-2.0); EOS % 1.1 % (0-4.5); HEMATOCRIT 35.1 % (32.4-45.2); HEMOGLOBIN 11.3 GM/dL (10.7-15.3); LYMPH % 25.7 % (8-40); MCH 29.7 pg (25.7-33.7); MCHC 32.3 g/dl (32.0-36.0); MEAN CELL VOLUME 91.9 fl (80-96); MEAN PLT VOLUME 8.9 fl (7.5-11.1); MONO % 13.1 % (3.8-10.2); NEUT % 59.6 % (42.8-82.8); PLATELET COUNT 251 K/MM3 (134-434); RBC 3.82 M/mm3 (3.60-5.2); RDW 15.3 % (11.6-15.6); WHITE BLOOD COUNT 4.5 K/mm3 (4.0-10.0)
[2020-10-12 08:57] LABS: POTASSIUM 3.6 mmol/L (3.5-5.1)
[2020-10-12 09:07] LABS: CALCIUM 8.6 mg/dL (8.5-10.1)
[2020-10-12 09:08] LABS: ALBUMIN 3.2 g/dl (3.4-5.0); BLOOD UREA NITROGEN 5.2 mg/dL (7-18); MAGNESIUM 1.7 mg/dL (1.8-2.4)
[2020-10-12 09:11] LABS: CREATININE 0.7 mg/dL (0.55-1.3); PHOSPHOROUS 2.4 mg/dL (2.5-4.9)
[2020-10-12 09:12] LABS: BILIRUBIN,TOTAL 1.5 mg/dL (0.2-1)
[2020-10-12] MEDS: PANTOPRAZOLE 40 MG TABLET PO SCH (10:10)
[2020-10-12] MEDS: ENOXAPARIN NA (PORCINE) 40 MG/0.4 ML DISP.SYRIN SQ SCH (10:12)
[2020-10-12] MEDS ORDERED: POTASSIUM PHOSPHATE 30 MM in SODIUM CHLORIDE 500 ML IVPB ONE (11:00)
[2020-10-12] MEDS ORDERED: MAGNESIUM SULF 50% (8.12 MEQ/2 ML-1 GM VIAL) IVPB ONE (11:00)
[2020-10-12] MEDS: NICOTINE 21 MG/24 HOURS TOPICAL PATCH TD SCH (12:05)
[2020-10-12 12:22] LABS: POTASSIUM 3.6 mmol/L (3.5-5.1)
[2020-10-12 12:26] LABS: CALCIUM 8.9 mg/dL (8.5-10.1)
[2020-10-12 12:27] LABS: BLOOD UREA NITROGEN 4.4 mg/dL (7-18)
[2020-10-12 12:30] LABS: CREATININE 0.5 mg/dL (0.55-1.3)
[2020-10-12] MEDS: SODIUM CHLORIDE 0.9%/KCL 20 MEQ/1,000 ML INFUS.BAG IV SCH (20:41)
[2020-10-12] MEDS ORDERED: INSULIN (NOVOLOG) ASPART 100 UNITS/ML 10ML VIAL ONE (20:56)
[2020-10-13 06:32] VITALS: BP 120/80; PULSE 73
[2020-10-13] MEDS: INSULIN SLIDING SCALE (NOVOLOG) 1 VIAL SQ SCH ×2 (06:50→11:44)
[2020-10-13] MEDS: GABAPENTIN 300 MG CAPSULE PO SCH ×2 (06:50→13:03)
[2020-10-13] MEDS: LEVOTHYROXINE NA 112 MCG TABLET (FP) PO SCH (06:50)
[2020-10-13 08:05] LABS: BASO % 0.5 % (0-2.0); EOS % 2.3 % (0-4.5); HEMATOCRIT 35.3 % (32.4-45.2); HEMOGLOBIN 11.8 GM/dL (10.7-15.3); LYMPH % 53.3 % (8-40); MCH 29.9 pg (25.7-33.7); MCHC 33.5 g/dl (32.0-36.0); MEAN CELL VOLUME 89.3 fl (80-96); MEAN PLT VOLUME 8.7 fl (7.5-11.1); MONO % 11.5 % (3.8-10.2); NEUT % 32.4 % (42.8-82.8); PLATELET COUNT 288 K/MM3 (134-434); RBC 3.95 M/mm3 (3.60-5.2); RDW 14.8 % (11.6-15.6); WHITE BLOOD COUNT 4.7 K/mm3 (4.0-10.0)
[2020-10-13 08:20] LABS: POTASSIUM 3.8 mmol/L (3.5-5.1)
[2020-10-13 08:22] LABS: ALBUMIN 3.2 g/dl (3.4-5.0); BLOOD UREA NITROGEN 4.4 mg/dL (7-18); CALCIUM 8.7 mg/dL (8.5-10.1); MAGNESIUM 1.9 mg/dL (1.8-2.4)
[2020-10-13 08:25] LABS: CREATININE 0.5 mg/dL (0.55-1.3)
[2020-10-13 08:26] LABS: PHOSPHOROUS 5.9 mg/dL (2.5-4.9)
[2020-10-13 08:27] LABS: BILIRUBIN,TOTAL 0.5 mg/dL (0.2-1); TOT PROT 6.3 g/dl (6.4-8.2)
[2020-10-13 08:37] VITALS: TEMP 97.8
[2020-10-13] MEDS ORDERED: NICOTINE POLACRILEX 2 MG GUM BUC PRN (08:50)
[2020-10-13] MEDS: ENOXAPARIN NA (PORCINE) 40 MG/0.4 ML DISP.SYRIN SQ SCH (09:06)
[2020-10-13] MEDS: PANTOPRAZOLE 40 MG TABLET PO SCH (09:08)
[2020-10-13] MEDS: INSULIN (LEVEMIR) 100 UNITS/ML UNITS SQ SCH (11:04)
[2020-10-13] MEDS ORDERED: INSULIN (LEVEMIR) 100 UNITS/ML UNITS SQ SCH (14:00)
== END 2020-10-13 14:32 | disposition home or self-care (01) | DRG 420 ==
LOC: JER 17:55 → JERBED 21:23 → J7W 10-09 04:28
PROVIDERS: ADMIT Internal Medicine; ATTEND Internal Medicine
DX: E13.10 Other specified diabetes mellitus with ketoacidosis without coma (principal); E03.9 Hypothyroidism, unspecified; E87.1 Hypo-osmolality and hyponatremia; F41.8 Other specified anxiety disorders; E86.0 Dehydration; E86.1 Hypovolemia; E83.39 Other disorders of phosphorus metabolism; F17.210 Nicotine dependence, cigarettes, uncomplicated; Z91.19 Patient's noncompliance with other medical treatment and regimen
CPT/HCPCS: 36415; 36600; 71045-TC-FY; 80048; 80053; 81003; 82010; 82550; 82803; 82962; 83036; 83735; 84100; 84439; 84443; 84484; 84703; 85025; 85027; 87040; 87086; 93005; 93010; 99285-25; C9803; U0003

== ENCOUNTER 2021-03-26 09:48 | Inpatient (IN) | payer OTHER ==
[2021-03-26] MEDS ORDERED: ONDANSETRON 4 MG/2 ML VIAL ONE ×2 (10:02→13:56)
[2021-03-26 10:05] VITALS: BMI 30.2
[2021-03-26] MEDS ORDERED: LACTATED RINGERS SOLUTION 1000 ML INFUS.BAG IV ONE ×2 (10:18→10:20)
[2021-03-26] MEDS ORDERED: ONDANSETRON 4 MG/2 ML VIAL IVPUSH ONE (10:29)
[2021-03-26 10:32] LABS: BASO % 0.8 % (0-2.0); EOS % 0.2 % (0-4.5); HEMATOCRIT 39.2 % (32.4-45.2); HEMOGLOBIN 12.9 GM/dL (10.7-15.3); LYMPH % 21.1 % (8-40); MCH 29.6 pg (25.7-33.7); MCHC 32.8 g/dl (32.0-36.0); MEAN CELL VOLUME 90.1 fl (80-96); MEAN PLT VOLUME 8.3 fl (7.5-11.1); MONO % 7.5 % (3.8-10.2); NEUT % 70.4 % (42.8-82.8); PLATELET COUNT 409 10^3/uL (134-434); RBC 4.36 M/mm3 (3.60-5.2); WHITE BLOOD COUNT 7.3 K/mm3 (4.0-10.0)
[2021-03-26 10:33] LABS: VENOUS BASE EXCESS -12.6 mmol/L (-2-2); VENOUS O2 SATURATION 94.2 % (70-80); VENOUS PCO2 27.9 mmHg (38-52); VENOUS PH 7.274 (7.310-7.410)
[2021-03-26 10:45] LABS: CALCIUM 9.1 mg/dL (8.5-10.1)
[2021-03-26 10:46] LABS: ALBUMIN 4.2 g/dl (3.4-5.0); BLOOD UREA NITROGEN 12.6 mg/dL (7-18)
[2021-03-26 10:49] LABS: CREATININE 0.8 mg/dL (0.55-1.3)
[2021-03-26 10:50] LABS: BILIRUBIN,TOTAL 0.9 mg/dL (0.2-1)
[2021-03-26 10:51] LABS: TOT PROT 7.9 g/dl (6.4-8.2)
[2021-03-26] MEDS ORDERED: LACTATED RINGERS SOLUTION 1,000 ML with POTASSIUM CHLORIDE 20 MEQ IV ONE (10:58)
[2021-03-26 12:05] LABS: CALCIUM 9.1 mg/dL (8.5-10.1)
[2021-03-26 12:06] LABS: BLOOD UREA NITROGEN 13.3 mg/dL (7-18)
[2021-03-26 12:09] LABS: CREATININE 0.9 mg/dL (0.55-1.3)
[2021-03-26] MEDS ORDERED: D5-1/2NS+20 MEQ KCL - 20 MEQ/1,000 ML INFUS.BAG IV SCH ×2 (12:15→16:43)
[2021-03-26] MEDS ORDERED: INSULIN REGULAR 100 UNITS in SODIUM CHLORIDE 99 ML IVPB SCH (12:45)
[2021-03-26] MEDS ORDERED: DEXTROSE 50%-WATER - 25 GM/50 ML VIAL IVPUSH PRN (13:15)
[2021-03-26] MEDS ORDERED: ONDANSETRON 4 MG/2 ML VIAL IVPUSH PRN (13:22)
[2021-03-26] MEDS ORDERED: LEVOTHYROXINE NA 112 MCG TABLET (FP) PO ONE (13:22)
[2021-03-26] MEDS: MUPIROCIN 2% TOPICAL OINTMENT FOR DECOLONIZATION NS SCH ×2 (13:24→22:36)
[2021-03-26] MEDS: GABAPENTIN 300 MG CAPSULE PO SCH ×2 (14:45→21:56)
[2021-03-26 15:30] LABS: CHLORIDE 108 mmol/L (98-107); SODIUM 140 mmol/L (136-145)
[2021-03-26 15:31] LABS: CALCIUM 8.2 mg/dL (8.5-10.1)
[2021-03-26 15:32] LABS: ANION GAP 20 MMOL/L (8-16); BLOOD UREA NITROGEN 12.5 mg/dL (7-18); CO2 13 mmol/L (21-32); GLUCOSE,RANDOM 161 mg/dL (74-106)
[2021-03-26 15:35] LABS: CREATININE 0.8 mg/dL (0.55-1.3)
[2021-03-26] MEDS: ACETAMINOPHEN 500 MG TABLET (FP) PO PRN (18:09)
[2021-03-26 20:33] LABS: BLOOD UREA NITROGEN 10.4 mg/dL (7-18)
[2021-03-26 20:37] LABS: CREATININE 0.8 mg/dL (0.55-1.3)
[2021-03-26] MEDS ORDERED: INSULIN (LEVEMIR) 100 UNITS/ML UNITS SQ ONE (20:50)
[2021-03-26] MEDS ORDERED: CHLORHEXIDINE GLUCONATE 4% CLEANSER FOR DECOLONIZATION TP SCH (22:00)
[2021-03-26] MEDS: INSULIN SLIDING SCALE (NOVOLOG) 1 VIAL SQ SCH (22:37)
[2021-03-27] MEDS: INSULIN SLIDING SCALE (NOVOLOG) 1 VIAL SQ SCH ×2 (06:41→10:06)
[2021-03-27] MEDS: GABAPENTIN 300 MG CAPSULE PO SCH ×2 (06:42→13:08)
[2021-03-27 07:05] LABS: BASO % 0.7 % (0-2.0); EOS % 0.9 % (0-4.5); HEMATOCRIT 35.8 % (32.4-45.2); HEMOGLOBIN 11.8 GM/dL (10.7-15.3); LYMPH % 24.5 % (8-40); MCH 29.5 pg (25.7-33.7); MEAN CELL VOLUME 89.5 fl (80-96); MEAN PLT VOLUME 8.3 fl (7.5-11.1); MONO % 10.1 % (3.8-10.2); NEUT % 63.8 % (42.8-82.8); PLATELET COUNT 363 10^3/uL (134-434); RDW 13.4 % (11.6-15.6); WHITE BLOOD COUNT 8.6 K/mm3 (4.0-10.0)
[2021-03-27 07:16] LABS: CALCIUM 8.4 mg/dL (8.5-10.1)
[2021-03-27 07:17] LABS: BLOOD UREA NITROGEN 8.4 mg/dL (7-18); MAGNESIUM 1.9 mg/dL (1.8-2.4)
[2021-03-27 07:20] LABS: CREATININE 0.5 mg/dL (0.55-1.3); PHOSPHOROUS 2.7 mg/dL (2.5-4.9)
[2021-03-27 08:33] VITALS: TEMP 98.4
[2021-03-27] MEDS ORDERED: PT OWN MED DRAWER 7, Y5N ONE (09:26)
[2021-03-27] MEDS ORDERED: PANTOPRAZOLE 40 MG TABLET PO SCH (10:00)
[2021-03-27] MEDS ORDERED: LEVOTHYROXINE NA 112 MCG TABLET (FP) PO SCH (10:00)
[2021-03-27] MEDS ORDERED: ENOXAPARIN NA (PORCINE) 40 MG/0.4 ML DISP.SYRIN SQ SCH (10:00)
[2021-03-27] MEDS: MUPIROCIN 2% TOPICAL OINTMENT FOR DECOLONIZATION NS SCH (10:05)
[2021-03-27] MEDS: ACETAMINOPHEN 500 MG TABLET (FP) PO PRN (10:13)
[2021-03-27 13:12] VITALS: BP 145/90; PULSE 62
== END 2021-03-27 14:13 | disposition home or self-care (01) | DRG 420 ==
LOC: JER 09:48 → JERBED 14:05 → JICU 17:41
PROVIDERS: ADMIT Internal Medicine Pulmonary Disease; ATTEND Internal Medicine Pulmonary Disease
DX: E10.10 Type 1 diabetes mellitus with ketoacidosis without coma (principal); E03.9 Hypothyroidism, unspecified; Z91.14 Patient's other noncompliance with medication regimen; Z79.4 Long term (current) use of insulin; E10.42 Type 1 diabetes mellitus with diabetic polyneuropathy; F32.9 Major depressive disorder, single episode, unspecified; F41.9 Anxiety disorder, unspecified
CPT/HCPCS: 36415; 80048; 80053; 82010; 82803; 82962; 83735; 84100; 84703; 85025; 93005; 93010; 99285-25; C9803; U0003; U0005